=== PATIENT | male | born 1945 | race Caucasian/White ===

== ENCOUNTER 2023-07-06 14:43 | Inpatient (IN) | payer MEDICARE, SELFPAY ==
[2023-07-06] VITALS (16 sets, daily range): BP systolic 107–164; BP diastolic 67–100; PULSE 2–52; BMI 43.3; BMI 44.8
--- NOTE | 2023-07-06 10:36 | ED.GENMED ---
History of Present Illness
General
Chief Complaint: Visual Problem
Time Seen by Provider: 07/06/23 10:35
Travel History
Have you had any contact with someone who has COVID-19?: No
Do you have any symptoms of coronavirus? Fever > 100 degrees, chills, cough, shortness of breath, sore throat, loss of taste or smell, muscle aches, or headache?: No
History of Present Illness
History of Present Illness:
77-year-old male with history of hypertension, morbid obesity, and bilateral lower extremity neuropathy presents to the emergency department for evaluation of 'vision changes'. He states that at some point yesterday afternoon he noted that he could
not read his 's glucometer very well. He denies any obvious blurry or double vision. He does report a severe headache yesterday but this is improved as of today. No chest pain, shortness of breath, extremity weakness or paresthesias, or
speech problems. No history of cerebrovascular disease.
Review of Systems
Review of Systems
Allergies reviewed?: Yes
All Other Systems: ROS reviewed and negative except as documented in HPI and ROS
Phy Exam
Physical Exam
Physical Exam:
GEN: Well appearing, NAD, WDWN
HEENT: Oral mucosa moist, no scleral icterus, no nasal congestion
Cardiac: Regular rate and rhythm, no murmurs
Lung: No respiratory distress, no tachypnea, lungs CTAB
MSK: No gross deformity or injuries
Skin: Good color, no pallor or jaundice, no rashes
Neuro: AO x3
Cranial nerves: Unable to perform leftward gaze beyond the midline bilat, otherwise EOMs intact. Remainder of cranial nerves intact
Visual jeffrey: homonymous hemianopia of the patient's left to the midline
BUE strength 5/5 in all jeffrey, sensation intact and symmetric. BLE strength 5/5 in all jeffrey, sensation intact and symmetric
No dysarthria or aphasia
Psych: Calm, cooperative
Course
Orders/Labs/Results
Orders:
Orders
07/06/23 10:35
Electrocardiogram (*1) Urgent
Reason for Study: TIA/Stroke
CT Head W/o Iv Contrast Urgent
Comment:
Reason For Exam: vision changes
EKG- Treatment ONCE
07/06/23 10:42
Complete Blood Count/With Diff Urgent
Comprehensive Metabolic Panel Urgent
07/06/23 11:19
CT Head & Neck Angio W/wo IV Urgent
Comment:
Reason For Exam: stroke
07/06/23 11:50
Urinalysis Reflex To Culture Urgent
Date Specimen was Collected: 07/06/23
Time Specimen was Collected: 11:48
Urine Microscopic Reflex Cult Urgent
Urine Culture Urgent
CONSTANCE Source: U
Specimen Description:
Date Specimen was Collected: 07/06/23
Time Specimen was Collected: 11:48
07/06/23 12:10
Consult Neurology [NEUROLOGY CONSULT] Urgent
Consulting Provider: Terry Rangel
Was physician already notified: Yes
Heparin 4,000 units IV NOW STA
Pharmacy Request to Place See Dose Instructions PO NOW STA
Discontinue all Active Warfarin orders?: Yes
07/06/23 12:15
Heparin 72330 Units/250 ml 25,000 units in 250 ml IV PER PROTOCOL
Weight to be used for heparin protocol in kilograms (kg):: 133
Protocol:: Cardiac Tx/Acute Coronary
PTT Goal Range to be used:: PTT 73 to 111 seconds
Order type:: Initial
INITIAL Infusion Dose (UNITS/KG/hr) & then follow protocol:: 12 units/kg/hr
Infusion Dose in UNITS/hr & then follow protocol (UNITS/hr):: 1,000
INFUSION RATE in mL/hr & then follow protocol (mL/hr):: 10
PTT less than or equal to 64 seconds:: Increase rate by 200 units/hr (+ 2 mL/hr)
PTT 64.1 to 72.9 seconds:: Increase rate by 100 units/hr (+ 1 mL/hr)
PTT 73 to 111 seconds:: Target Range. No change in rate.
PTT 111.1 to 130.9 seconds:: Decrease rate by 100 units/hr (- 1 mL/hr)
PTT 131 to 199.9 seconds:: HOLD for 1 hr. Then decrease rate by 200 units/hr (- 2 mL/hr)
PTT greater than or equal to 200 seconds:: HOLD for 2 hrs & Notify Provider. Then decrease by 200 units/hr (-
2 mL/hr)
Lab follow-up:: Each change, PTT q6h until 2 consecutive are therapeutic. Then PTT
daily.
07/06/23 12:22
PTT Urgent
Comment: Obtain baseline before beginning heparin infusion if not already collected
07/06/23 13:[address] See Dose Instructions IV DIRECTED
07/06/23 14:31
Admit/Transfer Patient As Directed
Co-Sign Provider:
Level of Care: Inpatient admission
Assign to:: IMU- Intermediate Care
Physician / Group: Hospitalist
Diagnosis: Stroke/afib
Reason for Hospitalization: .
Expected length of stay greater than two midnights?: Yes
ELOS- Estimated Length of Stay in days: 3
I certify the patient meets the requirements for IP care: Yes
07/06/23 19:30
PTT Urgent
Nursing to Place Non Medication Order As Directed
Physician Order: PTT 6 hours after initial start of Heparin infusion
Above order entered?: Yes
Abnormal Lab Results
07/06/23 07/06/23
10:42 11:50
MCHC 32.8 L g/dL
(33.0-37.0)
Absolute Lymphs (auto) 1.1 L 10^3/uL
(1.2-3.4)
Absolute Monos (auto) 0.8 H 10^3/uL
(0.1-0.6)
Lymphocytes % 14.1 L %
(20.5-51.1)
Monocytes % 10.2 H %
(1.7-9.3)
Creatinine 0.6 L mg/dL
(0.7-1.3)
Glucose 109 H mg/dl
(70-99)
Alkaline Phosphatase 137 H U/L
(38-126)
Leukocyte Esterase Rfl 1+ A
(Negative)
Urine WBC (Reflex) 11-15 A /HPF
(0-5)
Urine Albumin (Reflex) 1+ A
(Neg - Trace)
07/06/23 10:42
07/06/23 10:42
Vital Signs
Initial and Last Documented VS:
Initial Vital Signs
BP Pulse Ox
120/87 97
07/06/23 10:36 07/06/23 10:36
Last Documented Vital Signs
Temp Pulse Resp BP Pulse Ox
97.8 F 55 18 129/73 94
07/06/23 10:40 07/06/23 12:45 07/06/23 10:39 07/06/23 12:00 07/06/23 12:45
MDM/Problems Addressed
MDM/Problems Addressed:
Patient presenting for left-sided homonymous hemianopia for duration of nearly 24 hours. Workup reveals an acute right-sided stroke involving the temporal and parietal lobes, subsequent CT angiogram reveals complete occlusion of the left internal
carotid artery as well as an acute occlusion of the left P2 segment of the LOOPER FIXER. Given the duration of the patient's symptoms he is not a candidate for thrombectomy or thrombolysis therapy. Due to the additional finding of new onset rate controlled
atrial fibrillation the patient was initiated on heparin therapy however after discussion with hospitalist and neurology, heparin was discontinued out of risk of worsening chances for hemorrhagic conversion of the stroke. Will be admitted to the
hospitalist service for further management
*Critical Care Note
Total Time (30-74mins, 75-104mins- exclusive of procedures): Not Applicable
Update Note
Update Note:
1358: After discussion with neurology and hospitalist, heparin was discontinued. Given the size of the infarct, it is recommended to hold AC for 48 hours post CVA (currently at approx 24 hrs).
ED Attending Note
-
Portions of this chart may have been created with voice recognition software.� Occasional wrong word or��sound alike� substitutions may have occurred due to the inherent limitations of voice recognition software.
Discharge Plan
Departure
Patient Disposition: Admit
Date of Disposition: 07/06/23
Time of Disposition: 13:54
Admit to: Telemetry
Presentation/result/management discussed w/ accepting MD/DO: Hospitalist
Discharge Problem:
Stroke, Atrial fibrillation, new onset
Interventions
Interventions:
*Risk Screen - Suicide Last Done: 07/06/23 12:59
*Neglect/Abuse Screening Last Done: 07/06/23 12:59
ED- Neurological Assessment Last Done: 07/06/23 12:50
ED Swallowing Screen Last Done: 07/06/23 13:57
[2023-07-06 10:47] LABS: % Basophils 0.7 % (0-2); % Eosinophils 2.9 % (0-6); % Immature Granulocytes 0.5 % (0-0.5); % Lymphocytes 14.1 % (20.5-51.1); % Monocytes 10.2 % (1.7-9.3); % Neutrophils 71.6 % (42.2-75.2); Absolute Basophils 0.1 10^3/uL (0-0.2); Absolute Eosinophils 0.2 10^3/uL (0-0.7); Absolute Lymphocytes 1.1 10^3/uL (1.2-3.4); Absolute Monocytes 0.8 10^3/uL (0.1-0.6); Absolute Neutrophils 5.8 10^3/uL (1.4-6.5); Hematocrit 47.8 % (39.0-52.0); Hemoglobin 15.7 g/dL (13.0-18.0); Mean Corp Hgb Conc. 32.8 g/dL (33.0-37.0); Mean Corpuscular Hgb 29.9 pg (27.0-31.0); Mean Platelet Volume 10.4 fL (7.4-10.4); Nucleated Red Blood Cells % 0 % (-); Platelet Count 215 10^3/uL (130-400); Red Blood Cell Count 5.25 10^6/uL (4.70-6.10); Red Cell Dist. Width 13.2 % (11.5-14.5); White Blood Cell Count 8.1 10^3/uL (4.8-10.8)
[2023-07-06 11:24] LABS: ALT (SGPT) 40 U/L (0-50); AST (SGOT) 43 U/L (17-59); Albumin 3.7 g/dl (3.5-5.0); Alkaline Phosphatase 137 U/L (38-126); Blood Urea Nitrogen 12 mg/dl (9-20); Calcium 8.6 mg/dl (8.4-10.2); Carbon Dioxide 27 mmol/L (22-30); Chloride 105 mmol/L (98-107); Estimated Creatinine Clearance > 125 ml/min; Glucose 109 mg/dl (70-99); Potassium 3.6 mmol/L (3.5-5.1); Sodium 137 mmol/L (135-145); Total Bilirubin 0.9 mg/dl (0.2-1.3); Total Protein 7.1 g/dl (6.3-8.2); eGFR > 60.00
[2023-07-06 12:12] LABS: Urine Albumin 1+ (Neg - Trace); Urine Bilirubin Negative (Negative); Urine Character Clear (Clear); Urine Color Yellow; Urine Glucose Negative (Negative); Urine Ketone Negative (Negative); Urine Leukocyte 1+ (Negative); Urine Nitrite Negative (Negative); Urine Occult Blood Negative (Negative); Urine Urobilinogen Negative (Neg - 1+)
[2023-07-06 12:41] LABS: APTT 34.5 Sec (23.4-35.0)
--- NOTE | 2023-07-06 12:53 | CON.NEURO ---
Neuro Assessment/Plan
Assessment
IMPRESSIONS/RECOMMENDATIONS:
Abrupt change in mentation with left-homonymous hemianopsia
Most likely due to visualized right occipital parietal ischemic lesion (seen on CT of head)
Patient was not a candidate for either tenecteplase or intra-arterial thrombectomy due to timeframe out of window
Plan
Provide combination of aspirin and clopidogrel for 21-day timeframe then aspirin 325 mg alone based on the patient's intracranial stenosis
No clear indication at this time that the patient would benefit from the use of atorvastatin based on low LDL, less than 70
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
Provide medical educational materials
Goal of mild hypertension until after 1800 hrs., at which time patient may return to normotension as a goal
Check MRI of brain for complete awareness of the patient's diagnosis
No clear indication patient would benefit from an echocardiogram from a neurological perspective at this time
Patient may require wound care evaluation and treatment for bilateral brothers wounds
Will continue to follow patient. Thank you.
Consultation
Order
Date of Consultation: 07/06/23
Requesting Provider: ED Physician
Reason for Consult: Visual change
Subjective/Objective
Subjective Data
Date of Service: July 06, 2023
Right-Handed
Started 'being dysfunctional' starting yesterday, with visual loss. Patient had problems with use of phone also.
Started at 17:45 hours yesterday. Associated headache, although he also described himself as sleep deprived at the time of onset of symptoms. Then napped for unclear time frame. Awoke at 02:00 this morning, attempted to call family for assistance,
and was unsuccessful. Discovered by family at 08:45 to continue to have difficult manipulation of objects as well as visual changes leading to presentation at this hospital's emergency department. No other associated symptoms. No known modifying
factors. No recent medical changes.
Objective Data
Vital Signs
Temp Pulse Resp BP Pulse Ox
36.6 C 55 18 129/73 94
07/06/23 10:40 07/06/23 12:45 07/06/23 10:39 07/06/23 12:00 07/06/23 12:45
Lab Results
07/06/23 10:42
07/06/23 10:42
APTT 34.5 Sec (23.4-35.0) 07/06/23 12:22
Sodium 137 mmol/L (135-145) 07/06/23 10:42
Potassium 3.6 mmol/L (3.5-5.1) 07/06/23 10:42
BUN 12 mg/dl (9-20) 07/06/23 10:42
Glucose 109 mg/dl (70-99) H 07/06/23 10:42
Calcium 8.6 mg/dl (8.4-10.2) 07/06/23 10:42
Patient Allergies
No Known Allergies Allergy (Unverified 07/06/23 10:37)
CVA Assessment
Onset of Stroke Symptoms
Onset of symptoms known: Yes
Date of onset of symptoms: 07/05/23
Time of onset of symptoms: 17:45
Time pt last seen normal is known: Yes
Date last time pt seen normal: 07/05/23
Time last time pt seen normal: 17:45
NIH Stroke Score
Level of Consciousness: 0 - Alert
LOC Questions: 0-Answers both correctly
LOC Commands: 0-Performs both correctly
Best Horizontal Gaze: 0-Normal
Visual Buckner: 3=Bilateral hemianopia
Facial Palsy: 0=Normal, symmetrical
Motor - Right Arm: 0=No drift 10 seconds
Motor - Left Arm: 0=No drift 10 seconds
Motor - Right Le-No drift 5 seconds
Motor - Left Le-No drift 5 seconds
Limb Ataxia: 0-Absent
Sensation: 0-Normal
Best Language: 0-No aphasia
Dysarthria: 0-Normal
Extinction and Inattention: 0-No abnormality
Total Score:: 3
Tenecteplase Contraindications
Inclusion and Exclusion criteria reviewed: Yes
IAT Contraindications: NIHSS < 6
Review of Systems
-
History Source: Patient
All other systems: Reviewed and negative
EENT: Negative Decreased Vision or Swallowing Difficulty
Respiratory: Negative Trouble Breathing
Cardiac: Negative Chest Pain
Abdomen/GI: Negative Incontinence of Stool
Genitourinary: Frequency; Negative Incontinence
Musculoskeletal: Negative Back Pain or Neck Pain
Neuro: Negative Dizzy or Headache
Physical Exam
-
General: No Apparent Distress and Appears Stated Age
Eyes: OU Absent Papilledema, Round OU, [place] Conjunctivae and No Ptosis
HEENT: Anicteric and Moist Mucous Membranes
Neck: Full Range of Motion
Respiratory: No Dyspnea
Cardiac: No JVD
GI: Non-distended
Skin: Lesions (Bilateral shins with surgical covering)
Extremities: No Clubbing, No Cyanosis and No Edema
Psych: Negative Intact Judgement/Insight
Extended Neurological Exam
Mood & Affect: Mood Unremarkable and Affect Unremarkable
Attention Span & Concentration: Awake, Alert, Interactive and Mild Difficulty with 2 Step Request
Memory: Unremarkable
Tremor: Hand Tremor Absent and Head Tremor Absent
Involuntary Movement: None
Speech: Quality Unremarkable and Quantity Unremarkable
Cranial Nerve II: Left Eye: Pupillary Reactivity Unremarkable, Pupillary Size Unremarkable and Visual Buckner Reduced (On the left)
Cranial Nerve II: Right Eye: Pupillary Reactivity Unremarkable, Pupillary Size Unremarkable and Visual Buckner Reduced (On the left)
Cranial Nerves III, IV, : Extraocular Movement: Extraocular Movement Full in all Directions
Cranial Nerve VII: Facial Symmetry: Normal Facial Symmetry
Cranial Nerve VIII: Hearing: Unremarkable Hearing to Normal Conversational Volume
Cranial Nerve XI: Shoulder Shrug: Unremarkable
Cranial Nerve XII: Tongue Protusion: Midline
Muscle Strength, Overall: Full Throughout
Muscle Bulk & Tone: Bulk Unremarkable and Tone Unremarkable
Pronator Drift: No Drift in Upper Extremities
Deep Tendon Reflexes: Absent Throughout
Touch Sensation: Unremarkable
Coordination: [id number]-[id number]-[id number] Testing Unremarkable
Babinski Sign: Absent Bilaterally
Gait & Station: Unable to Assess
Data Reviewed
-
CT-A: Report Reviewed
CT Head: Report Reviewed
MRI Head: Ordered
Labs: Report Reviewed
Lipid Profile: Report Reviewed
Reviewed with: Physician, Patient and Family
Old Records: Summarized
Medications
-
Active Medications
Generic Name Dose Route Start Last Admin
Trade Name Freq PRN Reason Stop Dose Admin
Heparin Sodium 25,000 units in 250 mls @ 0 mls/hr 07/06/23 12:15
Heparin 62352 Units/250 Ml IV
PER PROTOCOL KARLA
Protocol
Per Protocol
Home Medications
�Medication �Instructions �Recorded
acetaminophen 500 mg tablet 1,500 mg PO BID PRN mild pain 07/06/23
amlodipine 10 mg tablet 10 mg PO DAILY 07/06/23
atenolol 50 mg tablet 50 mg PO DAILY 07/06/23
cholecalciferol (vitamin D3) 125 125 mcg PO DAILY 07/06/23
mcg (5,000 unit) tablet (Vitamin
D3)
meloxicam 15 mg tablet 15 mg PO DAILY 07/06/23
olmesartan 40 mg tablet 40 mg PO DAILY 07/06/23
therapeutic multivitamin 1 tab PO DAILY 07/06/23
Past History
Past History
ED Past Medical History: Cancer (Prostate), HTN, NIDDM, Other (Vitamin D deficiency, gait dysfunction, hypertriglyceridemia, torn right biceps, morbid obesity) and Other (wounds on bilateral legs)
ED Past Surgical History: Orthopedic (Left knee replacement 2013, rotator cuff tear repair 2017, carpal tunnel release 2011) and Other (Herniorrhaphy)
[2023-07-06 13:00] LABS: Urine Squamous Cell 0-2 /LPF (Few)
[2023-07-06 13:01] LABS: Urine Granular Cast 0-2 /LPF (0); Urine Red Blood Cell None Seen /HPF (0-2)
[2023-07-06] MEDS: HEPARIN 4000 UNITS IV (13:24)
[2023-07-06] MEDS: HEPARIN 25000 UNITS/250 ML IV (13:26)
--- NOTE | 2023-07-06 14:31 | HPS.HSE ---
Addendum entered and electronically signed by Oswald Mishra MD 07/06/23 17:27:
Addendum
Correction
Chads 2 Vasc score 5 and not 3
End
Original Note:
Family Physician
-
Family Physician: Nelda Carreon DO
Chief Complaint
-
Disorientation and visual changes for 2 days duration
History of Present Illness
77 years old male came from home. Patient felt headache and disorientation since yesterday. He describes her disorientation is as inability to use his phone appropriately no speech problem or swallowing problem. He also noticed the left side of
his vision was impaired. No weakness or numbness in any of the extremity. His headache resolved today but vision a problem remained and called his assisted living. They brought him to the emergency room. Had a scan showed large ischemic stroke
in the right occipital and temporal lobes. CTA of the head and neck showed acute complete occlusion of the right posterior cerebral artery.
Patient lives in assisted living with his . He is the caregiver of his . He walks with a cane. He drives his car. No previous strokes.
Patient was found to have atrial fibrillation. No history of chest pain palpitation. Chronic shortness of breath but increased recently. He has a chronic wounds on his bilateral lower extremities. 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 No previous diagnosis of atrial fibrillation. Patient could not recall the name of his hoisting machine operator but he reported some disorientation in last 2 days.
Medical History
Past Medical History
Past Medical History: Reports Other (Gait dysfunction, hypertension, history of prostate cancer, morbid obesity, hyperlipidemia, chronic venous wounds on bilateral lower extremity)
Past Surgical History: Reports Other (No recent major surgery)
Social History
Tobacco: Non-smoker
Alcohol: Occasional
Drug: None
Personal:
Living: With Family
Employment: Retired
Family History
Family History: Not pertinent
Allergies / Home Medications
Allergies reflects when Allergies were last updated in [employer].
Home Medications with original date entered in [employer]
Allergy/Medication List:
Allergies
Allergy/AdvReac Type Severity Reaction Status Date / Time
No Known Allergies Allergy Unverified 07/06/23 10:37
Home Medications
acetaminophen 500 mg tablet 1,500 mg PO BID PRN mild pain 07/06/23
amlodipine 10 mg tablet 10 mg PO DAILY 07/06/23
atenolol 50 mg tablet 50 mg PO DAILY 07/06/23
cholecalciferol (vitamin D3) 125 mcg (5,000 unit) tablet (Vitamin D3) 125 mcg PO DAILY 07/06/23
meloxicam 15 mg tablet 15 mg PO DAILY 07/06/23
olmesartan 40 mg tablet 40 mg PO DAILY 07/06/23
therapeutic multivitamin 1 tab PO DAILY 07/06/23
Review of Systems
-
History Source: Patient
A 12 point ROS was completed and negative except as noted: Yes
Constitutional: Denies Fever or Chills
EENT: Denies Sore Throat
Respiratory: Reports Trouble Breathing; Denies Cough
Cardiac: Denies Chest Pain
Abdomen/GI: Denies Abdominal Pain
: Denies Dysuria or Bleeding
Musculoskeletal: Denies Joint Pain
Skin: Denies Itching
Neurological: Reports Weakness and Other (confusion, loss of vision on left side ); Denies Numbness
Hematologic/Lymphatic: Denies Bruising
Psych: Denies Panic Disorder
Physical Exam
Vital Signs
Vital Signs
Temp Pulse Resp BP Pulse Ox
97.8 F 55 18 129/73 94
07/06/23 10:40 07/06/23 12:45 07/06/23 10:39 07/06/23 12:00 07/06/23 12:45
Physical Exam
General: No Apparent Distress, Comfortable and Obese
HEENT: Moist mucous membranes and Atraumatic
Respiratory: Clear
Cardiac: S1/S2, Irregular Rhythm and Bradycardia
GI: Non Tender
Rectal: No Maroon Stools
Genito-urinary: No costovertebral tender
Musculoskeletal: No Cyanosis and Other (Bilateral lower legs with edema)
Skin: Ulcers (Bilateral lower legs); No Jaundice
Neuro: AO x 3 and Other (Patient followed commands. Left homonymous hemianopia noted. Gait not assessed); No Slurred Speech, Facial Droop or Tremors
Psych: Calm and Intact Judgment/Insight
Laboratory Results
-
07/06/23 10:42
07/06/23 10:42
Laboratory Results
APTT 34.5 Sec (23.4-35.0) 07/06/23 12:22
Total Bilirubin 0.9 mg/dl (0.2-1.3) 07/06/23 10:42
AST 43 U/L (17-59) 07/06/23 10:42
ALT 40 U/L (0-50) 07/06/23 10:42
Alkaline Phosphatase 137 U/L (38-126) H 07/06/23 10:42
Impression/Plan
-
IMPRESSION:
77 years old male presented with disorientation, visual loss last 2 days
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
Admit the patient to the hospital
Patient presented with disorientation and left hemianopsia hemianopia
Start the patient on NIH stroke/stroke protocol/cardiac monitoring
Duration of symptoms more than 24 hours. Continue control blood pressure to normotensive.
Check lipid panel
Discussed with neurologist results of CT/CTA. Order MRI. Carotid US. Continue with aspirin for now. Eventual systemic anticoagulation after acute stage of stroke
PT/OT/speech
Order echocardiogram
Appreciate neurology input
# Primary hypertension
Will continue with home medications and monitor blood pressure.
Duration of symptoms more than 24 hours. Goal is normotensive
No chest pain, no headache
# New diagnosis of atrial fibrillation. No palpitations or chest pain.
Unknown duration of atrial fibrillation
Monitor on cardiac telemetry
Continue with aspirin for now.
[id number]= 3
Order echocardiogram
Patient saw hoisting machine operator in [place] years ago, he could not recall the name
Appreciate cardiology input
# Morbid obesity, BMI 43
# Chronic venous wound bilateral lower extremity
Patient does wound care at home. Both legs are swollen red, ulceration look red erythematous with soaked gauze on some
Per patient, chronic issue for him(and family are not with it and able to manage it at home)
Consult wound care nurse
# Chronic ambulatory dysfunction. Uses cane
# DVT prophylaxis
Total time spent to see the patient, examine the patient on the floor, review data and lab results, discuss treatment plan with patient, neurologist, hoisting machine operator, ER doctor, nursing staff around 75 minutes.
--- NOTE | 2023-07-06 15:10 | CON.CAR ---
Consultation
Consultation Request
Date/Time Consultation Requested: 07/06/23
Date/Time Consultation Performed: 07/06/23
Requesting Provider: Dr Mishra
Performing Provider: Dr Benitez
Reason for Consultation: new afib with cva
Medical History
-
Chief Complaint: Disorientation and visual impairment
History of Present Illness:
77-year-old gentleman with a past medical history of hyperlipidemia, morbid obesity, hypertension and gait dysfunction presents for evaluation of new neurologic symptoms including disorientation, headache, and left sided visual impairment.
Evaluation showed large ischemic stroke in the right occipital and temporal lobes. CTA showed complete occlusion of the right STAFFING COORDINATOR. EKG shows atrial fibrillation. We are asked to comment on his atrial fibrillation. He has no sense of it and has
never been diagnosed in the past. 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 He has TATIANA and doesn't wear CPAP.
Past Medical History
Past Medical History: Cancer (prstate), HTN and Other (gait dysfunction, chronic lower extremity edema with venous wounds, morbid obesity))
Social History
Tobacco: Non-Smoker
Alcohol: Occasional
Personal:
Living: Assisted Living
Family History
Family History: Reviewed & Not Pertinent
Allergies / Home Medications
Allergy/AdvReac Type Severity Reaction Status Date / Time
No Known Allergies Allergy Unverified 07/06/23 10:37
�Medication �Instructions �Recorded �Confirmed �Type
acetaminophen 500 mg tablet 1,500 mg PO BID PRN mild pain 07/06/23 07/06/23 History
amlodipine 10 mg tablet 10 mg PO DAILY 07/06/23 07/06/23 History
atenolol 50 mg tablet 50 mg PO DAILY 07/06/23 07/06/23 History
cholecalciferol (vitamin D3) 125 125 mcg PO DAILY 07/06/23 07/06/23 History
mcg (5,000 unit) tablet (Vitamin
D3)
meloxicam 15 mg tablet 15 mg PO DAILY 07/06/23 07/06/23 History
olmesartan 40 mg tablet 40 mg PO DAILY 07/06/23 07/06/23 History
therapeutic multivitamin 1 tab PO DAILY 07/06/23 07/06/23 History
Review of Systems
-
All other systems: Negative unless noted
Physical Exam
Vital Signs
Temp Pulse Resp BP Pulse Ox
97.8 F 55 18 129/73 94
07/06/23 10:40 07/06/23 12:45 07/06/23 10:39 07/06/23 12:00 07/06/23 12:45
Lab Results
07/06/23 10:42
07/06/23 10:42
Impression / Plan
-
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
Presentation more than 24 hours from symptom onset.
Obtain lipid panel and begin high-dose statin.
Atrial fibrillation now seen, would start anticoagulation when okay with neurology.
#Atrial fibrillation: Unknown duration, unknown symptoms. Rate controlled on baseline medical therapy including atenolol 50 mg daily.
-Continue beta-verna
-Will ask case management to flor Eliquis 5 mg twice a day.
Initiate anticoagulation when okay with neurology as recent embolic stroke.
Chads 2 Vasc score will be 5 for age(2), CVA(2), and hypertension(1).
would not initally pursue rhythm control.
will check echo
#TATIANA not compliant with CPAP: recommend eval and treatment as an outpatient.
#RBBB; will check echo
# HTN chronic
# HLD: chornic,
#morbid obesity: BMI 43 with CVA may benefit GLP1 agonist, can consider with PCP
Data Reviewed
-
EKG: Tracing Personally Visualized and interpreted (Atrial fibrillation with slow ventricular response, right bundle branch block.)
--- NOTE | 2023-07-06 17:00 | PTCARENOTE ---
Received patient from ED. Patient alert and oriented. Homonymous hemianopia affecting left to midline. NIH score 4. Vital signs stable. Oriented patient to room. Call vivas in reach.
[2023-07-06 17:11] LABS: HDL Cholesterol 54 mg/dl; LDL Cholesterol, Calculated 56 mg/dl; Total Cholesterol 127 mg/dl (50-199); Triglyceride 88 mg/dl (10-149); Very Low Density Lipoprotein 17 mg/dl (0-30)
[2023-07-06] MEDS: LIPITOR 40 MG PO (17:44)
[2023-07-06] MEDS: TYLENOL 1000 MG PO (18:30)
[2023-07-06] MEDS: APRESOLINE 5 MG IV (21:24)
[2023-07-06] MEDS: FLUSH (NSS) 2 FLUSH IV (21:24)
[2023-07-07] VITALS (18 sets, daily range): BP systolic 117–165; BP diastolic 69–89; PULSE 2–67; O2SAT 93
[2023-07-07] MEDS: DESENEX/MITRAZOL/ZEASORB 1 APPLIC TOPICAL ×3 (00:30→20:43)
--- NOTE | 2023-07-07 05:15 | PTCARENOTE ---
Pt received at beginning of shift resting in bed. AAOx3. Denies any pain or discomfort after received Tylenol for SUÁREZ on hi. BP 164/94 with HR 37-57 on CM in Afib/BBB. Geovanikayla TIMI on floor and order entered for Hydralazine 5mg IV x 1. Pt
received Hydralazine as ordered with good result. Also pt has sleep apnea with HR's into the mid 30's while asleep. Does admit to history of sleep apnea. Order entered for CPAP that was eventually switched over to BIPAP. Still with HR alarming into
the 30's but less frequently. NIH and Neuro checks as documented. Still with visual difficulty reading clock and left visual field B/L. Wound care completed to LE's. Sacrum intact. Desenex ordered for fungal rash to scrotal/groin area. Encouraging
Q2hr turns. Pt can refuse turns. Afib and Stroke packets given to pt with education. Unable to truly determine QTC with bradycardic Afib/BBB. EKG obtained showing continuing Afib/RBBB with QTC slightly better than in ED. Using urinal at bedside.
Call vivas remains within reach. Will continue to monitor.
[2023-07-07 05:35] LABS: Hemoglobin 15.5 g/dL (13.0-18.0); Mean Corpuscular Hgb 29.6 pg (27.0-31.0); Mean Corpuscular Volume 89.9 fL (80.0-94.0); Mean Platelet Volume 10.7 fL (7.4-10.4); Platelet Count 188 10^3/uL (130-400); Red Blood Cell Count 5.23 10^6/uL (4.70-6.10); Red Cell Dist. Width 13.3 % (11.5-14.5); White Blood Cell Count 7.7 10^3/uL (4.8-10.8)
[2023-07-07 05:56] LABS: Blood Urea Nitrogen 14 mg/dl (9-20); Calcium 8.9 mg/dl (8.4-10.2); Carbon Dioxide 26 mmol/L (22-30); Chloride 103 mmol/L (98-107); Estimated Creatinine Clearance > 125 ml/min; Glucose 96 mg/dl (70-99); HDL Cholesterol 47 mg/dl; LDL Cholesterol, Calculated 46 mg/dl; Potassium 3.6 mmol/L (3.5-5.1); Sodium 138 mmol/L (135-145); Total Cholesterol 113 mg/dl (50-199); Triglyceride 101 mg/dl (10-149); Very Low Density Lipoprotein 20 mg/dl (0-30); eGFR > 60.00
--- NOTE | 2023-07-07 06:31 | W.PN.HOSP.TC ---
Today's Communication/Plan
-
.
Assessment / Plan
Assessment / Plan
Physical Exam
General: No Apparent Distress, Comfortable and Obese
HEENT: Moist mucous membranes and Atraumatic
Respiratory: limited with some basal rales.
Cardiac: S1/S2, Irregular Rhythm and Bradycardia
GI: Non Tender
Rectal: No Maroon Stools
Genito-urinary: No costovertebral tender
Musculoskeletal: No Cyanosis and Other (Bilateral lower legs with edema)
Skin: Ulcers (Bilateral lower legs); No Jaundice
Neuro: AO x 3 and Other (Patient followed commands. Left homonymous hemianopia noted. Gait not assessed; No Slurred Speech, Facial Droop or Tremors
Psych: Calm and Intact Judgment/Insight
77 years old male presented with disorientation, visual loss last 2 days
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
He feels less disoriented today, same visual deficit
Patient presented with disorientation and left hemianopsia hemianopia
c/w NIH stroke/stroke protocol/cardiac monitoring
Started on Statin. LDL 46
Discussed with neurologist results of CT/CTA. Ordered MRI. Carotid US. Continue with aspirin for now. Eventual systemic anticoagulation after acute stage of stroke
PT/OT/speech
HGB A1c 5.6 in May 2022.
Order echocardiogram
Appreciate neurology input
# Bradycardia, more pronounced at night around 30-40
Holding BB
# Hx of sleep apnea. pt dominique snot wear C pap
Check chest x ray as some limitation in air entry on exam and basal rales.
# Primary hypertension
Will continue with amlodipine and ARB
Add PRN Hydralazine
No chest pain, no headache
# New diagnosis of atrial fibrillation. No palpitations or chest pain.
Unknown duration of atrial fibrillation
Monitor on cardiac telemetry
Continue with aspirin for now.
[id number]
Order echocardiogram
Patient saw jig operator in [place] years ago, he could not recall the name
Appreciate cardiology input
# Morbid obesity, BMI 43
# Chronic venous wound bilateral lower extremity
Patient does wound care at home. Both legs are swollen red, ulceration looked red erythematous with soaked gauze on some
Per patient, chronic issue for him
Consult wound care nurse
# Chronic ambulatory dysfunction. Uses cane
# DVT prophylaxis
Total time spent to see the patient, examine the patient on the floor, review data and lab results, discuss treatment plan with patient, jig operator,nursing staff around 55 minutes.
Anticipated Discharge: 24 - 48 hours
Subjective/Interval History
-
Date of Service: July 07, 2023
Patient feels better, less disorientation
No chest pain
No abd pain
Nursing : over night bradycardia , refused c pap, trial of Bipap , known TATIANA
Wounds were cleaned.
Objective Data
-
Labs:
Laboratory Results
07/07/23
04:45
WBC 7.7
Hgb 15.5
Hct 47.0
Plt Count 188
Sodium 138
Potassium 3.6
Chloride 103
Carbon Dioxide 26
BUN 14
Creatinine 0.6 L
Glucose 96
Calcium 8.9
Vital Signs:
Vital Signs
Temp Pulse Resp BP Pulse Ox
98.2 F 48 18 146/79 99
07/07/23 03:36 07/07/23 05:00 07/07/23 05:00 07/07/23 04:01 07/07/23 05:00
I&O
07/05/23 07/06/23 07/07/23
06:59 06:59 06:59
Intake Total 680 / 680
Output Total 600 / 600
Balance 80 / 80
--- NOTE | 2023-07-07 08:41 | W.PN.NEURO.1 ---
Today's Communication / Plan
-
Replace combination of aspirin and clopidogrel with anticoagulation starting tonight which will represent 48 hours after onset of symptoms
No clear indication at this time that the patient would benefit from the use of atorvastatin based on low LDL, less than 70
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
Neuro Assessment/Plan
Assessment
IMPRESSIONS/RECOMMENDATIONS:
Abrupt change in mentation with left-homonymous hemianopsia
Most likely due to large visualized right occipital parietal ischemic lesion (seen on CT of head, and MRI of brain)
Patient subsequently found to have fibrillation.
Plan
Replace combination of aspirin and clopidogrel with anticoagulation starting tonight which will represent 48 hours after onset of symptoms
No clear indication at this time that the patient would benefit from the use of atorvastatin based on low LDL, less than 70
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
Provide medical educational materials
Rehabilitation evaluations
normotension as a goal
Patient may require wound care evaluation and treatment for bilateral brothers wounds
Will continue to follow as outpatient. Please contact us with additional questions or issues.
Subjective/Objective
Subjective Data
Date of Service: July 07, 2023
No new changes.
Objective Data
Vital Signs
Temp Pulse Resp BP Pulse Ox
36.5 C 69 17 133/80 92
07/07/23 08:34 07/07/23 06:30 07/07/23 06:30 07/07/23 06:30 07/07/23 06:30
Lab Results
07/07/23 04:45
07/07/23 04:45
APTT Cancelled 07/06/23 19:30
Sodium 138 mmol/L (135-145) 07/07/23 04:45
Potassium 3.6 mmol/L (3.5-5.1) 07/07/23 04:45
BUN 14 mg/dl (9-20) 07/07/23 04:45
Glucose 96 mg/dl (70-99) 07/07/23 04:45
Calcium 8.9 mg/dl (8.4-10.2) 07/07/23 04:45
LDL Cholesterol, Calc 46 mg/dl 07/07/23 04:45
Patient Allergies
No Known Allergies Allergy (Unverified 07/06/23 10:37)
Review of Systems
-
History Source: Patient
All other systems: Reviewed and negative
EENT: Decreased Vision; Negative Swallowing Difficulty
Respiratory: Negative Trouble Breathing
Cardiac: Negative Chest Pain
Abdomen/GI: Negative Incontinence of Stool
Genitourinary: Negative Incontinence
Musculoskeletal: Negative Back Pain or Neck Pain
Neuro: Dizzy; Negative Headache
Physical Exam
-
General: No Apparent Distress and Appears Stated Age
Eyes: Round OU, Argenta Conjunctivae and No Ptosis
HEENT: Anicteric and Moist Mucous Membranes
Neck: Full Range of Motion
Respiratory: No Dyspnea
Cardiac: No JVD
GI: Non-distended
Skin: Lesions (Bilateral shins with surgical covering)
Extremities: No Clubbing, No Cyanosis and No Edema
Psych: Negative Intact Judgement/Insight
Extended Neurological Exam
Mood & Affect: Mood Unremarkable and Affect Unremarkable
Attention Span & Concentration: Awake, Alert, Interactive and Mild Difficulty with 2 Step Request
Memory: Unremarkable
Tremor: Hand Tremor Absent and Head Tremor Absent
Involuntary Movement: None
Speech: Quality Unremarkable and Quantity Unremarkable
Cranial Nerve II: Left Eye: Pupillary Size Unremarkable and Visual Buckner Reduced (On the left)
Cranial Nerve II: Right Eye: Pupillary Size Unremarkable and Visual Buckner Reduced (On the left)
Cranial Nerves III, IV, : Extraocular Movement: Grossly Intact
Cranial Nerve VII: Facial Symmetry: Normal Facial Symmetry
Cranial Nerve VIII: Hearing: Unremarkable Hearing to Normal Conversational Volume
Muscle Strength, Overall: Reduced Bilaterally (In bilateral lower extremities, mildly)
Muscle Bulk & Tone: Bulk Unremarkable and Tone Unremarkable
Pronator Drift: No Drift in Upper Extremities
Touch Sensation: Unremarkable
Coordination: Reaches for Objects without Difficulty
Babinski Sign: Absent Bilaterally
Gait & Station: Unable to Assess
Data Reviewed
-
CT-A: Report Reviewed
MRI Head: Report Reviewed and Image Reviewed
Echocardiogram: Ordered
Labs: Report Reviewed
Lipid Profile: Report Reviewed
Reviewed with: Physician, Nurse and Patient
Old Records: Summarized
[2023-07-07] MEDS: VITAMIN D3 (cholecalciferol) 125 MCG PO (10:19)
[2023-07-07] MEDS: BENICAR 40 MG PO (10:20)
[2023-07-07] MEDS: THERAGRAN 1 TABLET PO (10:20)
[2023-07-07] MEDS: LOW STRENGTH ASPIRIN 81 MG PO (10:20)
[2023-07-07] MEDS: NORVASC 10 MG PO (10:20)
--- NOTE | 2023-07-07 11:04 | PTOTSP ---
ST Acute Care Evaluation
Pt presents with oral pharyngeal parameters that are within functional limits for safe PO intake of all consistencies. No skilled dysphagia services are warranted at this time.
Pt presents with a mild cognitive linguistic impairment characterized by impaired visual spatial skills and impaired recall. Pt would benefit from acute rehab GASTROENTEROLOGY TECHNICIAN services upon discharge.
Recommendations:
- Continue with regular solids, thin liquids, meds as tolerated, and general aspiration precautions.
- GASTROENTEROLOGY TECHNICIAN to continue to follow for cognitive linguistic tx.
- Pt would benefit from acute rehab GASTROENTEROLOGY TECHNICIAN services upon d/c.
[2023-07-07 11:08] LABS: NT-proBNP 592 pg/ml
--- NOTE | 2023-07-07 11:46 | PTCARENOTE ---
Pt sent to MRI on stretcher.
[2023-07-07] MEDS: TYLENOL 1000 MG PO (13:36)
--- NOTE | 2023-07-07 14:24 | PTCARENOTE ---
Portable chest xray obtained. Pt remains AOx3, anxious affect, daughters visiting at bedside. Safe environment maintained. Plan discussed with Drs. Mishra and Juan Carlos.
[2023-07-07] MEDS: LASIX 40 MG IV (15:19)
--- NOTE | 2023-07-07 15:37 | W.PN.CD ---
Today's Communication / Plan
-
hold bb
assess bp in am
compression when able
await pricing of Eliquis but to start tonight
Impression / Plan
-
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
Presentation more than 24 hours from symptom onset.
continue statin
Atrial fibrillation now seen, will start anticoagulation tonight after d/w neurology
#Atrial fibrillation: Unknown duration, unknown symptoms.
-he has had a slow ventricular response
-HR in the 30s with sleep will hold atenolol and monitor rates
-need sleep study and cpap as op as likley causing nocturnal bradycardia
-Will ask case management to flor Eliquis 5 mg twice a day.
start Eliquis tonight
Chads 2 Vasc score will be 5 for age(2), CVA(2), and hypertension(1).
would not initally pursue rhythm control.
will check echo
#TATIANA not compliant with CPAP: recommend eval and treatment as an outpatient.
#Chronic venous stasis with ulcers: just received IV lasix, wound care c/s, compression when able.
#RBBB; will check echo
# HTN chronic, elevated with bb hold will increase olmesartan if needed, will assess in pm as just received IV lasix and want to avoid hypotension.
# HLD: chornic,
#morbid obesity: BMI 43 with CVA may benefit GLP1 agonist, can consider with PCP
Physical Exam
Vital Signs/Labs
Vital Signs
Temp Pulse Resp BP Pulse Ox
98.4 F 82 20 163/95 91
07/07/23 11:50 07/07/23 15:19 07/07/23 12:59 07/07/23 15:19 07/07/23 12:59
07/06/23 07/07/23 07/08/23
06:59 06:59 06:59
Actual Weight 129.546 kg
07/07/23 04:45
07/07/23 04:45
APTT Cancelled 07/06/23 19:30
Triglycerides 101 mg/dl (10-149) 07/07/23 04:45
LDL Cholesterol, Calc 46 mg/dl 07/07/23 04:45
VLDL Cholesterol, Calc 20 mg/dl (0-30) 07/07/23 04:45
HDL Cholesterol 47 mg/dl 07/07/23 04:45
07/07/23
04:45
Hdq-T-Gbypsdwcrau Pept 592
Physical Exam
Constitutional: No acute distress and Other (obese)
Cardiovascular: Systolic murmur absent, Rhythm/rate is irregular and Pedal edema present (2+ bl with wounds )
Respiratory: Respiratory effort normal, Lungs clear to auscul., Wheeze Absent, Crackles Absent and Rhonchi Absent
Neuro/Psych: AO x 3
Data Reviewed
-
Date of Service: July 07, 2023
Medical Tests (PFT, Pathology etc): Discussed with Physician (reassess bp and possibly increase arb tomorrow with Dr Mishra) and Discussed with Nurse (she is about to iv lasix)
[2023-07-07] MEDS: LIPITOR 40 MG PO (18:07)
--- NOTE | 2023-07-07 20:00 | PTCARENOTE ---
Resumed care of patient laying in bed AAOx3. NIH performed, scored 3 at this time for left sided partial hemianopia. B/L LE weakness. HR in the 70's, AFib with BBB, Prolonged QT, frequent PVC's on the monitor. HR irreg. POX 93% on RA. Lungs dec t/o.
Tachypnea, DENIS, Orthopnea. Sleep apnea, BIPAP HS. round obese abd. + bowel. Pt complaining of urinary frequency, pad wet and MASD noted to bon area. #25CC applied per pt request to allow for sleep. Venous stasis wounds to B/L LE, dressings intact
at this time. +2pitting edema noted. Brown/red discoloration. Heels elevated on pillows. Right AC int capped. Pt repositioned per comfort. Oral care provided. Will continue to monitor.
--- NOTE | 2023-07-07 21:50 | PTCARENOTE ---
Pt falling a sleep, pox 80% on RA. RT notified. Pt placed on Bipap 12/10 with 4 LO2. Pox now 96%. Will continue to monitor.
[2023-07-08] VITALS (17 sets, daily range): BP systolic 114–172; BP diastolic 64–125; PULSE 2–79; O2SAT 92–93; BMI 44.3
--- NOTE | 2023-07-08 00:20 | PTCARENOTE ---
Pt woke up all anxious, wanted Bipap off, pt stating he was done sleeping for the night. Emotional support provided. Pt complaining of headache. PRN Tylenol administered as ordered. Will continue to monitor.
[2023-07-08] MEDS: TYLENOL 1000 MG PO ×3 (00:23→18:14)
--- NOTE | 2023-07-08 01:09 | PTCARENOTE ---
Pt falling a sleep, POX 86% on RA. HR in the low 50's. Bipap re-applied. No other changes in assessment noted at this time. Will continue to monitor.
--- NOTE | 2023-07-08 01:50 | PTCARENOTE ---
Pt once again pulled Bipap mask off. PT states he is awake and doesnt need mask. Will continue to monitor.
--- NOTE | 2023-07-08 03:00 | PTCARENOTE ---
pox dropping to low 80's on RA> Pt once again sleeping. BIPAP mask applied. Will monitor. c
[2023-07-08 04:53] LABS: Hematocrit 46.2 % (39.0-52.0); Hemoglobin 15.2 g/dL (13.0-18.0); Mean Corp Hgb Conc. 32.9 g/dL (33.0-37.0); Mean Corpuscular Hgb 29.9 pg (27.0-31.0); Mean Corpuscular Volume 90.9 fL (80.0-94.0); Mean Platelet Volume 10.5 fL (7.4-10.4); Platelet Count 190 10^3/uL (130-400); Red Blood Cell Count 5.08 10^6/uL (4.70-6.10); Red Cell Dist. Width 13.2 % (11.5-14.5); White Blood Cell Count 8.6 10^3/uL (4.8-10.8)
[2023-07-08 05:24] LABS: Blood Urea Nitrogen 17 mg/dl (9-20); Calcium 8.6 mg/dl (8.4-10.2); Carbon Dioxide 25 mmol/L (22-30); Chloride 103 mmol/L (98-107); Estimated Creatinine Clearance 114 ml/min; Glucose 97 mg/dl (70-99); Potassium 3.3 mmol/L (3.5-5.1); Sodium 134 mmol/L (135-145); eGFR > 60.00
[2023-07-08] MEDS: KCL 40 MEQ PO (06:02)
--- NOTE | 2023-07-08 08:14 | W.PN.CD ---
Today's Communication / Plan
-
ECHO today
Eliquis started this AM
Added HCTZ 1.25qd for htn
Impression / Plan
-
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
Presentation more than 24 hours from symptom onset. Improving. Mental status completely normal
continue statin
AF NEW dx. OAT started today (Eliquis 5mg bid)
#Atrial fibrillation: Unknown duration, unknown symptoms.
-he has had a slow ventricular response
-HR in the 30s with sleep likely due to TATIANA. Atenolol on hold. May need no BB or lower dose (25mg)
-need sleep study and cpap as op as likley causing nocturnal bradycardia
-Please flor eliquis
Chads 2 Vasc score will be 5 for age(2), CVA(2), and hypertension(1).
would not initally pursue rhythm control. I told him we will wait for 4 wks of uninterrupted OAT then can have elective DCCV to see how long it lasts
will check echo today
#TATIANA not compliant with CPAP: recommend eval and treatment as an outpatient.He is asking about Inspire device. I told him this would be a referral to see ENT electively
#Chronic venous stasis with ulcers: just received IV lasix, wound care c/s, compression when able.
#RBBB; will check echo
# HTN chronic, elevated- olmesartan is at 40mg daily which is typically max dose. Amlodipine at 10 which is also max. Would add HCTZ 12.5 qd (ADDED)
# HLD: chornic,
#morbid obesity: BMI 43 with CVA may benefit GLP1 agonist, can consider with PCP
Physical Exam
Vital Signs/Labs
Vital Signs
Temp Pulse Resp BP Pulse Ox
98.4 F 62 18 129/64 85
07/08/23 03:34 07/08/23 04:00 07/08/23 04:00 07/08/23 04:00 07/08/23 04:00
07/07/23 07/08/23 07/09/23
06:59 06:59 06:59
Actual Weight 285 lb 9.6 oz 282 lb 12.8 oz
07/08/23 04:36
07/08/23 04:36
APTT Cancelled 07/06/23 19:30
Triglycerides 101 mg/dl (10-149) 07/07/23 04:45
LDL Cholesterol, Calc 46 mg/dl 07/07/23 04:45
VLDL Cholesterol, Calc 20 mg/dl (0-30) 07/07/23 04:45
HDL Cholesterol 47 mg/dl 07/07/23 04:45
07/07/23
04:45
Pqa-B-Fkrixgchwae Pept 592
Physical Exam
Constitutional: Comfortable
EENT: Anicteric
Cardiovascular: Rhythm/rate is irregular and Murmur/rub/gallop absent
Respiratory: Respiratory effort normal
GI: Non tender
Neuro/Psych: Motor deficits absent
Data Reviewed
-
Date of Service: July 08, 2023
[2023-07-08] MEDS: BENICAR 40 MG PO (08:37)
[2023-07-08] MEDS: ELIQUIS 5 MG PO ×2 (08:37→19:42)
[2023-07-08] MEDS: DESENEX/MITRAZOL/ZEASORB 1 APPLIC TOPICAL ×2 (08:38→19:42)
[2023-07-08] MEDS: THERAGRAN 1 TABLET PO (08:38)
[2023-07-08] MEDS: NORVASC 10 MG PO (08:38)
[2023-07-08] MEDS: VITAMIN D3 (cholecalciferol) 125 MCG PO (08:38)
--- NOTE | 2023-07-08 09:22 | W.PN.HOSP.TC ---
Today's Communication/Plan
-
ECHO
Wound care consult.
PT OT
Watch closely with start of Eliquis
Assessment / Plan
Assessment / Plan
CVS: S1-S2 normal
Chest: CTA B/L
Abdomen: Soft, NT / Bowel sounds present
Extremities: Dry skin with flacking. Ulcers bandaged. Will take a look with WC today
REFUGE WORKER: Visual field cut left side.
Good 5/5 strength B/L UE and LE
Mild pronator drift left
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
MRI of the brain-large area of nonhemorrhagic infarct consistent with CT scan involving medial aspect of the right temporal lobe and right occipital lobe and adjacent cytotoxic edema. Possible tiny acute/subacute nonhemorrhagic infarct in the right
thalamus
Head CT-acute complete occlusion of the P2 segment of the right posterior cerebral artery with an associated large acute and ischemic infarct in the right occipital and right temporal lobes containing severe cytotoxic edema. 70% diameter stenosis
of the P2 segment of the left BANKING CONSULTANT. 50% diameter stenosis of the distal right intracranial vertebral artery. Severe calcific atherosclerotic plaque in both the proximal intracranial vertebral arteries., Intracranial right internal carotid artery
causing 25 to 50% diameter stenosis. Patent OBINNA and BANKING CONSULTANT
Neck CTA-complete occlusion of the proximal ICA. Less than 25% stenosis of the proximal right ICA. Greater than 70% diameter stenosis at the origin of the right vertebral artery.
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
Patient presented with disorientation and left hemianopsia hemianopia
Eliquis started per recommendations from from neurology. Aspirin Plavix stopped
Started on Statin due to extensive atherosclerosis. LDL 46
PT/OT/speech
HGB A1c 5.6 in May 2022.
Await echocardiogram
# Hypokalemia-replace
# 1 cm nodule in the anterior segment of the right upper lobe-Needs a CT chest at some point
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
# Mild to moderate pulmonary edema. Small bilateral pleural effusions.
Check echo
#Aerococcus in the urine without symptoms. Hold off on antibiotics
# Bradycardia, more pronounced at night around 30-40
Holding BB
# Hx of sleep apnea. pt does not wear C pap
# Primary hypertension
Will continue with amlodipine and ARB
Add PRN Hydralazine
No chest pain, no headache
# New diagnosis of atrial fibrillation. No palpitations or chest pain.
Unknown duration of atrial fibrillation
Monitor on cardiac telemetry
Continue with Eliquis
[id number]
Obtain echocardiogram
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
Appreciate cardiology input
# Morbid obesity, BMI 43
# Chronic venous wound bilateral lower extremity
Patient does wound care at home. Both legs are swollen red, ulceration looked red erythematous with soaked gauze on some
Per patient, chronic issue for him
Consult wound care nurse
# Chronic ambulatory dysfunction. Uses can
# History of prostate cancer
# DVT prophylaxis-Eliquis
D/W RN at bed side
(History of von Willebrand factor disease listed on the chart. But pt or daughter not aware )
D/W Daughter on the phone and updated.
Time spent 53 min
Anticipated Discharge: 24 - 48 hours
Subjective/Interval History
-
Date of Service: July 08, 2023
Objective Data
-
Labs:
Laboratory Results
07/08/23
04:36
WBC 8.6
Hgb 15.2
Hct 46.2
Plt Count 190
Sodium 134 L
Potassium 3.3 L
Chloride 103
Carbon Dioxide 25
BUN 17
Creatinine 0.7
Glucose 97
Calcium 8.6
Vital Signs:
Vital Signs
Temp Pulse Resp BP Pulse Ox
98.3 F 69 18 161/95 85
07/08/23 07:15 07/08/23 08:38 07/08/23 04:00 07/08/23 08:38 07/08/23 04:00
I&O
07/07/23 07/08/23 07/09/23
06:59 06:59 06:59
Intake Total 680 / 680 655 / 655
Output Total 600 / 600 2470 / 2470
Balance 80 / 80 -1815 / -1815
[2023-07-08] MEDS: ORETIC 12.5 MG PO (09:46)
--- NOTE | 2023-07-08 11:00 | WOUNDNOTE ---
LEFT LATERAL LEG
--- NOTE | 2023-07-08 11:00 | WOUNDNOTE ---
RIGHT LOWER LEG
--- NOTE | 2023-07-08 11:10 | CM ---
Patient from [facility] with Dx stroke. BiPAP. PT & OT recommend skilled rehab. ST recommends skilled service. Seen by wound care nurse.
Spoke with patient who resides at [facility] with his .
The patient & recently moved into [facility], and patient says has needed more care that he does. The patient has been assisting his with her insulin injections, and their children are now helping with this.
The patient had been independent in ADLs and ambulatory with his SPC. Patient states knee problems and was therefore using a 'stool with wheels' to get around, as well as an electric w/c.
DME - SPC, electric w/c
No prior VN or SNF
PCP - Elsa Carreon
Pharmacy - [facility]
CM Consult: flor check Eliquis
Spoke with Ellie, pharmacist, [facility]; she requests tracy - MD sent.
Eliquis requires step therapy and would need a prior auth.
Xarelto 20mg #30 - cost is $425 for 1 month supply.
Message relayed to Nissa Soto & Sandra.
The patient prefers to go to [facility] rather than SNF.
Referral made to [facility].
Plan follow up with [facility] for acceptance.
[2023-07-08 11:11] LABS: Vitamin D, 25-OH*** 25.1 ng/mL (30-80)
--- NOTE | 2023-07-08 11:21 | WOUNDNOTE ---
[facility] RN NOTE: Reviewed chart and met with patient. Patient LE assessed with hospitalist. LE dry, flakey with +2 edema and venous stasis changes. Patient has what appears to be a bursted blister on right knee. The wound bed is pink and the loose,
blistered skin is still intact. Right LE with venous appearing wound with white adherent slough. Left lateral leg wound is shallow, pink, with a scant amount of drainage. Local wound care, cleaning and moisturizing of skin, and compression completed
as ordered. Sacrum is intact and barrier ointment was applied to friction appearing skin of left posterior thigh. Desenex ordered for MASD of groin and condom cath intact. Heels intact. Patient positioned on left semi-side lying position. Patient is
awake and alert. This securities underwriter reviewed care for skin care and interventions for venous stasis. Patient states understanding. He reports good intake with protein and requires repositioning/turning schedule. Patient reports sitting most of day and
night in recliner and uses a wheeled scooter for mobility. Recommended use of gel cushion when at home. Orders confirmed with hospitalist, SHON Mazariegos given update. Discharge and care plan updated. Will follow as needed.
[2023-07-08 11:44] LABS: Vitamin B12 656 pg/ml (239-931)
--- NOTE | 2023-07-08 11:45 | CARDSERVLU ---
Echocardiogram with Lumason completed after protocol screening completed. Allergies verified.
Patent IV site: __R FA___
IV site flushed with 0.9% NaCl pre and post administration.
Diluted bolus method utilized to enhance visualization of ventricular romero.
Total volume given: __1.5__ mL
Patient tolerated all procedures well without complications.
[2023-07-08] MEDS: HYDROPHOR 1 APPLIC TOPICAL (14:05)
[2023-07-08] MEDS: LIPITOR 40 MG PO (16:57)
--- NOTE | 2023-07-08 18:01 | PTCARENOTE ---
Rec'd pt this AM. Pt voided large amount of urine. vital signs stable. Educated pt on benefit of going to acute rehab. discussed wound care. Now resting comfortably
[2023-07-08 19:07] LABS: Hepatitis C Antibody Negative (Negative)
[2023-07-09] VITALS (10 sets, daily range): BP systolic 103–141; BP diastolic 74–92; PULSE 2–84; BMI 43.3
--- NOTE | 2023-07-09 03:59 | PTCARENOTE ---
Pt awake and asking for BIPAP to be removed. HR in the 50's in Afib on the monitor when sleeping. POX 90-93% on RA while awake, POX in the low 80's on RA when sleeping. BIPAP on and off t/o the night when pt sleeping. #[address] draining elaina
urine. Pt positioning self in bed per comfort. Legs elevated on pillows. NIH assessed 3- no changes at this time. Vital signs stable. No issues to report. Will monitor.
[2023-07-09] MEDS: TYLENOL 1000 MG PO ×3 (04:18→23:45)
[2023-07-09 05:30] LABS: Hematocrit 46.4 % (39.0-52.0); Hemoglobin 15.4 g/dL (13.0-18.0); Mean Corp Hgb Conc. 33.2 g/dL (33.0-37.0); Mean Corpuscular Hgb 29.4 pg (27.0-31.0); Mean Corpuscular Volume 88.7 fL (80.0-94.0); Mean Platelet Volume 10.9 fL (7.4-10.4); Platelet Count 200 10^3/uL (130-400); Red Blood Cell Count 5.23 10^6/uL (4.70-6.10); Red Cell Dist. Width 13.2 % (11.5-14.5); White Blood Cell Count 7.6 10^3/uL (4.8-10.8)
[2023-07-09 06:02] LABS: Blood Urea Nitrogen 16 mg/dl (9-20); Carbon Dioxide 25 mmol/L (22-30); Chloride 100 mmol/L (98-107); Estimated Creatinine Clearance 112 ml/min; Glucose 91 mg/dl (70-99); Potassium 3.4 mmol/L (3.5-5.1); Sodium 134 mmol/L (135-145); eGFR > 60.00
--- NOTE | 2023-07-09 08:02 | W.PN.CD ---
Addendum entered and electronically signed by Silvano Soto MD 07/09/23 08:50:
Our office will investigate preauthorization for eliquis
[employer] for this pt should provide card for 30 day FREE supply of eliquis 5mg bid to patient at time of discharge
Thanks
Original Note:
Today's Communication / Plan
-
- no further inpatient cardiac workup is anticipated and I will sign off
- MEDS: amlodipine 10 qd, Eliquis 5 po BID, HCTZ 12.5 po qd, olmesartan 40 QD, atorvastatin 40 po qd. Continue to hold atenolol
- Follow up: Fiona Morris Jul 22 at 11:00 AM
Impression / Plan
-
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
- statin
- AC
#Atrial fibrillation: Unknown duration, unknown symptoms.
- rate controlled without meds
- AC started
- Eventual plan re: rate vs rhythm to be determined
#TATIANA not compliant with CPAP: recommend eval and treatment as an outpatient.He is asking about Inspire device. I told him this would be a referral to see ENT electively
#Chronic venous stasis with ulcers: just received IV lasix, wound care c/s, compression when able.
# RBBB; will check echo
# HTN chronic, elevated- olmesartan is at 40mg daily which is typically max dose. Amlodipine at 10 which is also max. Would add HCTZ 12.5 qd (ADDED)
# HLD: chronic
#morbid obesity: BMI 43 with CVA may benefit GLP1 agonist, can consider with PCP
#Dispo
- no further inpatient cardiac workup is anticipated and I will sign off
- MEDS: amlodipine 10 qd, Eliquis 5 po BID, HCTZ 12.5 po qd, olmesartan 40 QD, atorvastatin 40 po qd. Continue to hold atenolol
- Follow up: Fiona Morris Jul 22 at 11:00 AM
Subjective: No CP, palps, or dyspnea.
Laboratory Data
07/09/23
04:10
Hgb 15.4
Creatinine 0.7
Selected Entries
07/06/23
10:39 07/09/23
04:16
Actual Weight 293 lb 3.437 oz 276 lb 7 oz
Generic Name Dose Route Start Last Admin
Trade Name Freq PRN Reason Stop Dose Admin
Amlodipine Besylate 10 mg 07/07/23 08:00 07/08/23 08:38
Amlodipine 10 Mg Tablet PO 08/04/23 07:59 10 mg
DAILY KARLA
Apixaban 5 mg 07/08/23 08:00 07/08/23 19:42
Apixaban (Eliquis) 5 Mg Tablet PO 08/05/23 07:59 5 mg
BID KARLA
Hydrochlorothiazide 12.5 mg 07/08/23 08:30 07/08/23 09:46
Hydrochlorothiazide 12.5 Mg Tablet PO 08/05/23 08:29 12.5 mg
DAILY KARLA
Atenolol 50 mg 07/07/23 08:00 07/07/23 10:21
Atenolol 50 Mg Tablet PO 08/04/23 07:59 Not Given
DAILY KARLA
Olmesartan 40 mg 07/07/23 08:00 07/08/23 08:37
Olmesartan 20 Mg Tablet PO 08/04/23 07:59 40 mg
DAILY KARLA
Atorvastatin Calcium 40 mg 07/06/23 18:00 07/08/23 16:57
Atorvastatin (Lipitor) 40 Mg Tablet PO 08/03/23 17:59 40 mg
QPM KARLA
Physical Exam
Vital Signs/Labs
Vital Signs
Temp Pulse Resp BP Pulse Ox
36.6 C 74 24 141/92 93
07/09/23 04:16 07/09/23 06:13 07/09/23 06:13 07/09/23 06:13 07/09/23 06:13
07/08/23 07/09/23 07/10/23
06:59 06:59 06:59
Actual Weight 282 lb 12.8 oz 276 lb 7 oz
07/09/23 04:10
07/09/23 04:10
APTT Cancelled 07/06/23 19:30
Triglycerides 101 mg/dl (10-149) 07/07/23 04:45
LDL Cholesterol, Calc 46 mg/dl 07/07/23 04:45
VLDL Cholesterol, Calc 20 mg/dl (0-30) 07/07/23 04:45
HDL Cholesterol 47 mg/dl 07/07/23 04:45
07/07/23
04:45
[id number] Pept 592
Physical Exam
Constitutional: No acute distress
EENT: Anicteric and Moist mucous membranes
Cardiovascular: Pedal edema is absent, Systolic murmur absent, Diastolic murmur absent and Rhythm/rate is irregular
Respiratory: Respiratory effort normal, Lungs clear to auscul., Wheeze Absent and Crackles Absent
GI: Soft, Distention absent and Non tender
Neuro/Psych: Alert and Oriented
Data Reviewed
-
Date of Service: July 09, 2023
Echo: Report Reviewed by me
--- NOTE | 2023-07-09 08:28 | CON.MD ---
Documented by User: Mini Wang PA-C 07/09/23 16:51
Consultation - Medical
-
Referring Provider:Dr. Idalmis Flores
Chief Complaint: CVA
History of Present Illness: 77-year-old male with PMH of ( gait dysfunction, hypertension, history of prostate cancer, morbid obesity, hyperlipidemia, chronic venous wounds on bilateral lower extremities) brought to [facility] on 07/06/2023 for
abrupt change in mentation, headache, disorientation and inability to use his phone appropriately. He denied any speech or swallowing issues. He also noticed left-sided impairment in vision. He denied any weakness or numbness. Patient with
history of chronic shortness of breath that had recently increased. Recently diagnosed with atrial fibrillation. Denies any previous diagnosis of A-fib. He was been followed by insurance territory manager in [place] which he has not seen for the past few
years. CT scan of the head shows decreased attenuation in the right temporal and occipital lobes, most consistent with acute/subacute nonhemorrhagic infarct. Followed by MRI of the head that reveals a large area of nonhemorrhagic infarct
consistent with CT scan results. With possible tiny acute/subacute nonhemorrhagic infarct in the right thalamus as well. Mild diffuse volume loss.
Patient was not a candidate for either tenecteplase or intra-arterial thrombectomy due to timeframe out of window
MRI of Brain
Large area of nonhemorrhagic infarct consistent with the CT scan from the day before. This involves the medial aspect of the right temporal lobe and right occipital lobe and adjacent cytotoxic edema.
No intraparenchymal hemorrhage. No intraventricular hemorrhage. No midline shift or downward herniation.
Possible tiny acute/subacute nonhemorrhagic infarct in the right thalamus.
Mild diffuse volume loss.
HEAD CTA:
1. ACUTE COMPLETE OCCLUSION of the P2 segment of the RIGHT POSTERIOR CEREBRAL ARTERY with an associated LARGE ACUTE ISCHEMIC INFARCT in the RIGHT OCCIPITAL and TEMPORAL LOBES containing severe cytotoxic edema.
2. 70% diameter stenosis in the P2 segment of the left posterior cerebral artery.
3. 50% diameter stenosis in the distal right intracranial vertebral artery.
4. Severe calcific atherosclerotic plaque in both proximal intracranial vertebral arteries.
5. Severe calcific atherosclerotic plaque in the intracranial right internal carotid artery causing 25-50% diameter stenosis.
6. Patent anterior communicating and left posterior communicating artery supplying blood to the left middle and anterior cerebral arteries which remain patent secondary to collateral blood flow in the setting of a proximal left internal carotid
artery occlusion.
NECK CTA:
1. COMPLETE OCCLUSION of the PROXIMAL LEFT INTERNAL CAROTID ARTERY.
2. Less than 25% diameter stenosis in the proximal right internal carotid artery.
3. Greater than 70% diameter stenosis at the origin of the right vertebral artery.
4. No CTA evidence for left vertebral artery stenosis or occlusion.
5. Moderate-sized right and small left pleural effusions.
6. Mild centrilobular consolidation and ground-glass opacity in the right upper lobe which could be secondary to alveolar pulmonary edema or infection.
7. 1.0 cm nodule in the anterior segment of the right upper lobe which could be secondary to infection or alveolar pulmonary edema. A malignant pulmonary nodule is an alternative diagnostic possibility.
8. Severe multilevel discogenic degenerative disease in the cervical spine which is greatest at C6/C7 with a disc-osteophyte complex causing moderate spinal cord compression, moderate central canal stenosis, and severe bilateral neural foraminal
narrowing.
SINGLE NODULES
LOW RISK: Less than 6 mm: No routine follow-up. 6-8 mm nodules: CT at 6-12 months, then consider CT at 18-24 months. Greater than 8 mm: Consider CT at 3 months, PET/CT, or tissue sampling. Nodules less than 6 mm do not require routine
follow-up, but certain patients at high risk with suspicious nodule morphology, upper lobe location, or both may warrant 12 month follow-up
HIGH RISK: Nodules less than 6 mm: Optional CT at 12 months. 6-8 mm: CT at 6-12 months, then CT at 18-24 months. Greater than 8 mm: Consider CT at 3 months, PET/CT, or tissue sampling. Nodules less than 6 mm do not require routine follow-up,
but certain patients at high risk with suspicious nodule morphology, upper lobe location, or both may warrant 12 month follow-up.
Transthoracic Echo - 07/07
Normal left ventricular size, wall thickness and systolic function.
No regional wall motion abnormalities are seen.
LV ejection fraction is 55-60% by Katz's method of discs.
Normal right ventricular size and function.
Mild mitral regurgitation.
Trace aortic regurgitation.
Mild tricuspid regurgitation.
Estimated pulmonary artery pressure of 45 mmHg., assuming a right atrial
pressure of 3 mmHg.
Mild pulmonary hypertension.
No prior study for comparison.����
Chest Xray 07/07
1. MILD to MODERATE ACUTE INTERSTITIAL and ALVEOLAR CARDIOGENIC PULMONARY EDEMA.
2. Small bilateral pleural effusions (right larger than left).
3. Moderate cardiomegaly.
4. Moderate mediastinal lipomatosis.
CT of chest 07/08
Groundglass nodule within the right upper lobe, measuring 1 cm in diameter. As per Fleischner Society recommendations for subsolid nodules, repeat chest CT is suggested at 6-12 months.
2. Solid nodule within the right lower lobe, measuring 5 mm in diameter.
3. Small bilateral pleural effusions, right greater than left. Right basilar subsegmental atelectasis.
4. Nodular contour of the liver, suggestive of cirrhosis in the correct clinical setting.
5. 2.3 cm left adrenal nodule, incompletely characterized on the current chest CT. Consider adrenal protocol CT or MRI of the abdomen for further characterization.
6. Mild coronary arterial calcification. Please correlate with symptoms of and risk factors for coronary artery disease, with further workup as clinically appropriate.�����������
CERVICAL SPINE: There is loss of the normal cervical lordosis with a mild kyphosis at C4/C5. There is severe discogenic degenerative disease at C3/C4, C5/C6, and C6/C7 with severe loss of intervertebral disc space height and moderate-sized vertebral
body endplate osteophytes. There is osseous fusion across the right C2/C3 and C4/C5 facet joints. There are central disc-osteophyte complexes at C3/C4, C4/C5, C5/C6, and C6/C7 causing moderate spinal cord compression and central canal stenosis at
C6/C7 and mild spinal cord compression and central canal stenosis at the other cervical levels. There is severe bilateral neural foraminal narrowing at C6/C7 and severe left neural foraminal narrowing at C5/C6. There is no abnormal prevertebral soft
tissue swelling.
Past Medical History: A-fib, sleep apnea, gait dysfunction, Right knee OA, cervical OA, left shoulder pain and torn right biceps, hypertension, history of prostate cancer, morbid obesity, hyperlipidemia, chronic venous wounds on bilateral lower
extremities
Procedure History: No documented surgeries.
Family History: Not pertinent
Social History:
Functional Level Premorbidly: Independent with all activities . Uses rolling stool to move around apartment due to right knee. Uses motorized scooter to get to the dining gagnon/outside of apartment. He manages 's medication who has h/o stroke
with hemiplegic arm. Assisted living does all meals, laundry, cleaning. sleeps in a recliner at home.
Functional Level Currently: Bed mobility�mod assist, transfer�mod assist, stand/pivot/sit�mod assist of 2, leans heavily on therapists, can stand with strong support of 2 people, eating, grooming�set up, toileting�dependent, lower extremity
self-care�dependent,
Tobacco: Denies
Alcohol: Occasional
Drug use: Denies
Lives with: at [facility] assisted living
24-hour assistance available: yes
Number of floors: 1
# steps to enter: none
# steps to second floor: 0
Potential First floor set up: yes, sleeps in recliner
Driving: Yes
Occupation: Retired
Allergies:
Allergy/AdvReac Type Severity Reaction Status Date / Time
No Known Allergies Allergy Unverified 07/06/23 10:37
Review of Systems:
Constitutional: (x)
Eye: (x) Normal _
Ear/Nose/Throat: (x) Normal _
Respiratory: (x) sob
Cardiovascular: (x)Afib
Gastrointestinal: (x) Normal _
Genitourinary: (x) Normal _
Musculoskeletal: (x) right knee OA, pain, shoulders with torn biceps, rotator cuff issue
Integumentary: (x) small wounds and ecchymosis upper extremities, B/l legs wrapped
Neurologic: (x) CVA
Psychiatric: (x) Normal _
Endocrine: (x) Normal _
Hematologic/Lymphatic: (x) Normal _
Allergic/Immunologic: (x) Normal _
Medications:
Active Current Visit Medication List
Category Date Time Status
Acetaminophen [Tylenol] Med 07/06/23 17:26 Active
1,000 mg PO Q6HPRN PRN
Amlodipine [Norvasc] Med 07/07/23 08:00 Active
10 mg PO DAILY
Apixaban [Eliquis] Med 07/08/23 08:00 Active
5 mg PO BID
Atenolol [Tenormin] Med 07/07/23 08:00 Hold
50 mg PO DAILY
Atorvastatin [Lipitor] Med 07/06/23 18:00 Active
40 mg PO QPM
Cholecalciferol (Vitamin D3) [VITAMIN D3 ( Med 07/07/23 08:00 Active
cholecalciferol)]
125 mcg PO DAILY
Cholecalciferol (Vitamin D3) [VITAMIN D3 ( Med 07/09/23 08:00 Active
cholecalciferol)]
25 mcg PO DAILY
Flush (0.9% Sodium Chloride) [Flush (Nss)] Med 07/06/23 18:00 Active
See Dose Instructions IV PER PROTOCOL
Hydrochlorothiazide [Oretic] Med 07/08/23 08:30 Active
12.5 mg PO DAILY
Miconazole Nitrate [Desenex/Mitrazol/Zeasorb] Med 07/06/23 22:00 Active
See Dose Instructions TOPICAL BID
Multivitamin [Theragran] Med 07/07/23 08:00 Active
1 tablet PO DAILY
Olmesartan Medoxomil [Benicar] Med 07/07/23 08:00 Active
40 mg PO DAILY
Petrolatum/Mineral Oil [Hydrophor] Med 07/08/23 12:00 Active
See Dose Instructions TOPICAL DAILY
Vitals:
Temp Pulse Resp BP Pulse Ox
97.8 F 74 24 141/92 93
07/09/23 04:16 07/09/23 06:13 07/09/23 06:13 07/09/23 06:13 07/09/23 06:13
Height 5 ft 7 in
Actual Weight 125.39 kg
Body Mass Index (BMI) 43.3
Physical Exam:
General Appearance/Observation: Well-developed, well-nourished , obese male in NAD
Pain/Comfort Assessment: Denies currently
Mood/Affect: Appropriate, pleasant
Integumentary:
Eyes: Conjunctiva/Lids: normal Pupils: pupils equal round and reactive to light and Accommodation
Ears/Nose/Throat: oral mucosa moist, throat clear. Lips/Teeth/Gums: normal
Neck: muscle tightness bilaterally
Cardiovascular: Heart: irregular, no murmur
Pulses: dorsalis pedis 1+ bilaterally
Respiratory: Respiratory Effort/Chest Expansion: normal Auscultation:grossly Clear to auscultation bilaterally
Gastrointestinal: abdomen not tender, no distension, obese, normal abdominal bowel sounds
Genitourinary:Condom catheter
Extremities: Edema: bilaterally. Limited lower extremity exam due to legs wrapped in Arya down to heels due to wounds
Neurology Exam:
Orientation: Alert, Oriented to self, Time, Place
Memory: Intact for immediate medical concerns.
Speech: Intact
Comprehension: Intact
Two step command: Intact
Cranial Nerves:
CNII: Pupillary light reflex: Intact Visual Field: impaired on the left. Left homonymous hemianopia
CN III, IV, : Extraocular muscles: Impaired on the left side
CN V: Facial Sensation at Forehead: Intact , Maxilla: Intact, Mandible: Intact
CN VII: Facial movement: slight lips deviation to the right
CN VIII: Hearing: Normal
CN IX/X: Speech & swallow: Normal, Position of Uvula: Midline
CN XI: Shoulder shrug: Symmetric
CN XII: Tongue protrusion: Midline
Sensory:
Light touch: Intact in bilateral upper. Limited sensory exam of lower extremities wrapped in Aray for wound care
Reflexes:
Biceps: 1+ bilaterally
Brachioradialis: absent bilaterally
Triceps: 1 bilaterally
Patellar: absent bilaterally
Achilles: absent bilaterally
Babinski: No response bilaterally
Cerebellar: Dysmetria/Ataxia: No dysmetria
Musculoskeletal:
Motor: (Manual muscle scale 0-5)
Muscle SA EF WE EE FF FA HF KE DF EHL PF
Right 5 4 4 4 4 4 3 3 4 4 4
Left 5 4 4 4 4 4 3 3 4 4 4
Patient lying in bed with bilateral hip abducted and feet turned outward. Says that he normally ambulates with his feet facing outward.
Tone: normal in all extremities
Range of Motion: Limited range of motion of left upper extremity with abduction, adduction, overhead. Slightly diminished ROM of right shoulder with abduction
Lab Results
Labs
WBC 7.6 10^3/uL (4.8-10.8) 07/09/23 04:10
RBC 5.23 10^6/uL (4.70-6.10) 07/09/23 04:10
Hgb 15.4 g/dL (13.0-18.0) 07/09/23 04:10
Hct 46.4 % (39.0-52.0) 07/09/23 04:10
MCV 88.7 fL (80.0-94.0) 07/09/23 04:10
MCH 29.4 pg (27.0-31.0) 07/09/23 04:10
MCHC 33.2 g/dL (33.0-37.0) 07/09/23 04:10
RDW 13.2 % (11.5-14.5) 07/09/23 04:10
Plt Count 200 10^3/uL (130-400) 07/09/23 04:10
MPV 10.9 fL (7.4-10.4) H 07/09/23 04:10
Abs Immat Gran (auto) 0.0 10^3/uL (0-0.05) 07/06/23 10:42
Absolute Neuts (auto) 5.8 10^3/uL (1.4-6.5) 07/06/23 10:42
Absolute Lymphs (auto) 1.1 10^3/uL (1.2-3.4) L 07/06/23 10:42
Absolute Monos (auto) 0.8 10^3/uL (0.1-0.6) H 07/06/23 10:42
Absolute Eos (auto) 0.2 10^3/uL (0-0.7) 07/06/23 10:42
Absolute Basos (auto) 0.1 10^3/uL (0-0.2) 07/06/23 10:42
Immature Gran % 0.5 % (0-0.5) 07/06/23 10:42
Neutrophils % 71.6 % (42.2-75.2) 07/06/23 10:42
Lymphocytes % 14.1 % (20.5-51.1) L 07/06/23 10:42
Monocytes % 10.2 % (1.7-9.3) H 07/06/23 10:42
Eosinophils % 2.9 % (0-6) 07/06/23 10:42
Basophils % 0.7 % (0-2) 07/06/23 10:42
Nucleated RBC % 0 % (-) 07/06/23 10:42
APTT Cancelled 07/06/23 19:30
Sodium 134 mmol/L (135-145) L 07/09/23 04:10
Potassium 3.4 mmol/L (3.5-5.1) L 07/09/23 04:10
Chloride 100 mmol/L (98-107) 07/09/23 04:10
Carbon Dioxide 25 mmol/L (22-30) 07/09/23 04:10
BUN 16 mg/dl (9-20) 07/09/23 04:10
Creatinine 0.7 mg/dL (0.7-1.3) 07/09/23 04:10
Estimated Creat Clear 112 ml/min 07/09/23 04:10
eGFR > 60.00 07/09/23 04:10
Glucose 91 mg/dl (70-99) 07/09/23 04:10
Calcium 9.0 mg/dl (8.4-10.2) 07/09/23 04:10
Total Bilirubin 0.9 mg/dl (0.2-1.3) 07/06/23 10:42
AST 43 U/L (17-59) 07/06/23 10:42
ALT 40 U/L (0-50) 07/06/23 10:42
Alkaline Phosphatase 137 U/L (38-126) H 07/06/23 10:42
Pld-X-Qjzkxyozswo Pept 592 pg/ml 07/07/23 04:45
Total Protein 7.1 g/dl (6.3-8.2) 07/06/23 10:42
Albumin 3.7 g/dl (3.5-5.0) 07/06/23 10:42
Triglycerides 101 mg/dl (10-149) 07/07/23 04:45
Total Cholesterol 113 mg/dl (50-199) 07/07/23 04:45
LDL Cholesterol, Calc 46 mg/dl 07/07/23 04:45
VLDL Cholesterol, Calc 20 mg/dl (0-30) 07/07/23 04:45
HDL Cholesterol 47 mg/dl 07/07/23 04:45
Vitamin B12 656 pg/ml (239-931) 07/08/23 04:36
Vitamin D 25-Hydroxy 25.1 ng/mL (30-80) L 07/08/23 04:36
Urine Color Yellow 07/06/23 11:50
Urine Clarity Clear (Clear) 07/06/23 11:50
Urine pH 7.0 (5.0-9.0) 07/06/23 11:50
Ur Specific Loring 1.010 (<1.030) 07/06/23 11:50
Urine Ketones Negative (Negative) 07/06/23 11:50
Ur Occult Blood Reflex Negative (Negative) 07/06/23 11:50
Urine Nitrite (Reflex) Negative (Negative) 07/06/23 11:50
Urine Bilirubin Negative (Negative) 07/06/23 11:50
Urine Urobilinogen Negative (Neg - 1+) 07/06/23 11:50
Leukocyte Esterase Rfl 1+ (Negative) A 07/06/23 11:50
Urine RBC None seen /HPF (0-2) 07/06/23 11:50
Urine WBC (Reflex) 11-15 /HPF (0-5) A 07/06/23 11:50
Ur Squamous Epith Cells 0-2 /LPF (Few) 07/06/23 11:50
Granular Casts 0-2 /LPF (0) 07/06/23 11:50
Urine Glucose Negative (Negative) 07/06/23 11:50
Urine Albumin (Reflex) 1+ (Neg - Trace) A 07/06/23 11:50
Hepatitis C Antibody Negative (Negative) 07/07/23 04:45
�
Diagnostic Results: as per HPI
Assessment 77-year-old male with PMH of ( gait dysfunction, hypertension, history of prostate cancer, morbid obesity, hyperlipidemia, chronic venous wounds on bilateral lower extremities) brought to [facility] on 07/06/2023 for abrupt change in
mentation, headache, disorientation and inability to use his phone appropriately. He also noticed left-sided impairment in vision. CT scan of the head shows decreased attenuation in the right temporal and occipital lobes, most consistent with
acute/subacute nonhemorrhagic infarct. MRI of the head reveals a large area of nonhemorrhagic infarct consistent with CT scan results. With possible tiny acute/subacute nonhemorrhagic infarct in the right thalamus as well. Mild diffuse volume
loss. Patient was not a candidate for either tenecteplase or intra-arterial thrombectomy due to timeframe out of window
Plan
PT/OT to increase independence with ADLs, improve balance, coordination, endurance, strength, mobility, community reintegration, decreased burden of care on others and family education.
CVA:Large area of nonhemorrhagic infarct in the medial aspect of the right temporal lobe and right occipital lobe and adjacent cytotoxic edema. Subacute/acute infarct in right thalamus
Secondary prophylaxis with aspirin, statin, and blood pressure control (SBP less than 180 and diastolic less than 100 to participate with therapy for ischemic stroke). Continue to monitor neurologic status.
Left homonymous hemianopia : makes patient at increased risk for falls.� Will need therapy to work on scanning of environment for safe navigation.
Peripheral neuropathy: There are many potential etiologies common etiologies include diabetes, alcohol use, B12, thyroid disorder, It is reasonable to check a B12, TSH, and hemoglobin A1c. Patient at high risk of falling with subsequent
significant neuropathy.
HTN: amlodipine 10 qd, HCTZ 12.5 po qd, olmesartan 40 QD.Continue to hold atenolol���
Bradycardia: more pronounced at night around 30-40 Holding BB �
HLD: Atorvastatin 40mg
Atrial fibrillation/RBBB:� Continue Eliquis 5 bid, amlodipine 10 qd, HCTZ 12.5 po qd, olmesartan 40 QD, atorvastatin 40 po qd. Continue to hold atenolol�. ��Transthoracic Echo -07/07- LV ejection fraction is 55-60%
Normal left ventricular size, wall thickness and systolic function.
No regional wall motion abnormalities are seen.
LV ejection fraction is 55-60% by Katz's method of discs.
Normal right ventricular size and function.
Mild mitral regurgitation.
Trace aortic regurgitation.
Mild tricuspid regurgitation.
Estimated pulmonary artery pressure of 45 mmHg., assuming a right atrial
pressure of 3 mmHg.
Mild pulmonary hypertension.
No prior study for comparison.������������������������������
TATIANA:not compliant with CPAP:cardio recommend evaluation and treatment as an outpatient. Patient inquiring about Inspire device. Would be a referral to see ENT electively
Bilateral lower extremity edema: Consider TEDS as able. Increased fluid will cause more force requirement to move lower extremities which requires more strength and increases fatigue.
Hypokalemia:3.4 received K+
Psych: Psychology consult.� Monitor mood, adjust medications as needed.
Skin: monitor for pressure sores/rashes/lesions.
Pain: acetaminophen or oxycodone as needed.
Bowel: Colace and Senna, PRN bisacodyl.
Bladder: Time void, PVRs, PRN straight cath.
GI Prophylaxis: Pantoprazole
DVT Prophylaxis: Eliquis 5mg bid
Chronic venous stasis with ulcers: received IV lasix, wound care c/s, compression when able.
Pulmonary: Incentive spirometry
Morbid obesity: Continue to enrollment counselor patient about diet adjustments to control obesity. Body habitus and increased force to move body and extremities causes further difficulty with functional tasks. Per cardio:BMI 43 with CVA may benefit GLP1
agonist, can consider with PCP
Safety: Continue to reinforce assistance with all transfers.
Code Status:� Full code
Dispo (date/plan/equipment needs): Home with family care.� Social history reviewed.
Functional and Medical Goals: Modified Independent with ADL�s, ambulation, transfers
Summary of recommendations:
- Discharge Destination: Patient with CVA and left homonymous hemianopia at current level of Bed mobility�mod assist, transfer�mod assist, stand/pivot/sit�mod assist of 2, leans heavily on therapists, can stand with strong support of 2 people,
eating, grooming�set up, toileting�dependent, lower extremity self-care�dependent, would benefit from acute inpatient rehabilitation for PT/OT to increase independence with ADLs, improve balance, coordination, endurance, strength, mobility,
community reintegration, decreased burden of care on others and family education once medically stable.
CVA:Large area of nonhemorrhagic infarct in the medial aspect of the right temporal lobe and right occipital lobe and adjacent cytotoxic edema. Subacute/acute infarct in right thalamus
Secondary prophylaxis with aspirin, statin, and blood pressure control (SBP less than 180 and diastolic less than 100 to participate with therapy for ischemic stroke). Continue to monitor neurologic status.
Left homonymous hemianopia : makes patient at increased risk for falls.� Will need therapy to work on scanning of environment for safe navigation.
Peripheral neuropathy: There are many potential etiologies common etiologies include diabetes, alcohol use, B12, thyroid disorder, It is reasonable to check a B12, TSH, and hemoglobin A1c. Patient at high risk of falling with subsequent
significant neuropathy.
HTN: amlodipine 10 qd, HCTZ 12.5 po qd, olmesartan 40 QD.Continue to hold atenolol���
Hypokalemia:3.4 received K+. Monitor closely. repeat BMP
Pain: acetaminophen or oxycodone as needed.
Bowel: Colace and Senna, PRN bisacodyl.
Bladder: Time void, PVRs, PRN straight cath.
GI Prophylaxis: Pantoprazole
DVT Prophylaxis: Eliquis 5mg bid and mechanical
Chronic venous stasis with ulcers: Teds stocking. Continue wound care
Pulmonary: Incentive spirometry
Morbid obesity: Continue to enrollment counselor patient about diet adjustments to control obesity. Body habitus and increased force to move body and extremities causes further difficulty with functional tasks. Per cardio:BMI 43 with CVA may benefit GLP1
agonist, can consider with PCP
Thank you for allowing me to care for your patient. Please contact me with any questions or concerns.

Documented by User: Bill Carballo MD 07/11/23 13:49
Consultation - Medical
-
Referring Provider:Dr. Idalmis Flores
Chief Complaint: CVA
History of Present Illness: 77-year-old male with PMH of ( gait dysfunction, hypertension, history of prostate cancer, morbid obesity, hyperlipidemia, chronic venous wounds on bilateral lower extremities) brought to [facility] on 07/06/2023 for
abrupt change in mentation, headache, disorientation and inability to use his phone appropriately. He denied any speech or swallowing issues. He also noticed left-sided impairment in vision. He denied any weakness or numbness. Patient with
history of chronic shortness of breath that had recently increased. Recently diagnosed with atrial fibrillation. Denies any previous diagnosis of A-fib. He was been followed by insurance territory manager in [place] which he has not seen for the past few
years. CT scan of the head shows decreased attenuation in the right temporal and occipital lobes, most consistent with acute/subacute nonhemorrhagic infarct. Followed by MRI of the head that reveals a large area of nonhemorrhagic infarct
consistent with CT scan results. With possible tiny acute/subacute nonhemorrhagic infarct in the right thalamus as well. Mild diffuse volume loss.
Patient was not a candidate for either tenecteplase or intra-arterial thrombectomy due to timeframe out of window
MRI of Brain
Large area of nonhemorrhagic infarct consistent with the CT scan from the day before. This involves the medial aspect of the right temporal lobe and right occipital lobe and adjacent cytotoxic edema.
No intraparenchymal hemorrhage. No intraventricular hemorrhage. No midline shift or downward herniation.
Possible tiny acute/subacute nonhemorrhagic infarct in the right thalamus.
Mild diffuse volume loss.
HEAD CTA:
1. ACUTE COMPLETE OCCLUSION of the P2 segment of the RIGHT POSTERIOR CEREBRAL ARTERY with an associated LARGE ACUTE ISCHEMIC INFARCT in the RIGHT OCCIPITAL and TEMPORAL LOBES containing severe cytotoxic edema.
2. 70% diameter stenosis in the P2 segment of the left posterior cerebral artery.
3. 50% diameter stenosis in the distal right intracranial vertebral artery.
4. Severe calcific atherosclerotic plaque in both proximal intracranial vertebral arteries.
5. Severe calcific atherosclerotic plaque in the intracranial right internal carotid artery causing 25-50% diameter stenosis.
6. Patent anterior communicating and left posterior communicating artery supplying blood to the left middle and anterior cerebral arteries which remain patent secondary to collateral blood flow in the setting of a proximal left internal carotid
artery occlusion.
NECK CTA:
1. COMPLETE OCCLUSION of the PROXIMAL LEFT INTERNAL CAROTID ARTERY.
2. Less than 25% diameter stenosis in the proximal right internal carotid artery.
3. Greater than 70% diameter stenosis at the origin of the right vertebral artery.
4. No CTA evidence for left vertebral artery stenosis or occlusion.
5. Moderate-sized right and small left pleural effusions.
6. Mild centrilobular consolidation and ground-glass opacity in the right upper lobe which could be secondary to alveolar pulmonary edema or infection.
7. 1.0 cm nodule in the anterior segment of the right upper lobe which could be secondary to infection or alveolar pulmonary edema. A malignant pulmonary nodule is an alternative diagnostic possibility.
8. Severe multilevel discogenic degenerative disease in the cervical spine which is greatest at C6/C7 with a disc-osteophyte complex causing moderate spinal cord compression, moderate central canal stenosis, and severe bilateral neural foraminal
narrowing.
SINGLE NODULES
LOW RISK: Less than 6 mm: No routine follow-up. 6-8 mm nodules: CT at 6-12 months, then consider CT at 18-24 months. Greater than 8 mm: Consider CT at 3 months, PET/CT, or tissue sampling. Nodules less than 6 mm do not require routine
follow-up, but certain patients at high risk with suspicious nodule morphology, upper lobe location, or both may warrant 12 month follow-up
HIGH RISK: Nodules less than 6 mm: Optional CT at 12 months. 6-8 mm: CT at 6-12 months, then CT at 18-24 months. Greater than 8 mm: Consider CT at 3 months, PET/CT, or tissue sampling. Nodules less than 6 mm do not require routine follow-up,
but certain patients at high risk with suspicious nodule morphology, upper lobe location, or both may warrant 12 month follow-up.
Transthoracic Echo - 07/07
Normal left ventricular size, wall thickness and systolic function.
No regional wall motion abnormalities are seen.
LV ejection fraction is 55-60% by Katz's method of discs.
Normal right ventricular size and function.
Mild mitral regurgitation.
Trace aortic regurgitation.
Mild tricuspid regurgitation.
Estimated pulmonary artery pressure of 45 mmHg., assuming a right atrial
pressure of 3 mmHg.
Mild pulmonary hypertension.
No prior study for comparison.����
Chest Xray 07/07
1. MILD to MODERATE ACUTE INTERSTITIAL and ALVEOLAR CARDIOGENIC PULMONARY EDEMA.
2. Small bilateral pleural effusions (right larger than left).
3. Moderate cardiomegaly.
4. Moderate mediastinal lipomatosis.
CT of chest 07/08
Groundglass nodule within the right upper lobe, measuring 1 cm in diameter. As per Fleischner Society recommendations for subsolid nodules, repeat chest CT is suggested at 6-12 months.
2. Solid nodule within the right lower lobe, measuring 5 mm in diameter.
3. Small bilateral pleural effusions, right greater than left. Right basilar subsegmental atelectasis.
4. Nodular contour of the liver, suggestive of cirrhosis in the correct clinical setting.
5. 2.3 cm left adrenal nodule, incompletely characterized on the current chest CT. Consider adrenal protocol CT or MRI of the abdomen for further characterization.
6. Mild coronary arterial calcification. Please correlate with symptoms of and risk factors for coronary artery disease, with further workup as clinically appropriate.�����������
CERVICAL SPINE: There is loss of the normal cervical lordosis with a mild kyphosis at C4/C5. There is severe discogenic degenerative disease at C3/C4, C5/C6, and C6/C7 with severe loss of intervertebral disc space height and moderate-sized vertebral
body endplate osteophytes. There is osseous fusion across the right C2/C3 and C4/C5 facet joints. There are central disc-osteophyte complexes at C3/C4, C4/C5, C5/C6, and C6/C7 causing moderate spinal cord compression and central canal stenosis at
C6/C7 and mild spinal cord compression and central canal stenosis at the other cervical levels. There is severe bilateral neural foraminal narrowing at C6/C7 and severe left neural foraminal narrowing at C5/C6. There is no abnormal prevertebral soft
tissue swelling.
Past Medical History: A-fib, sleep apnea, gait dysfunction, Right knee OA, cervical OA, left shoulder pain and torn right biceps, hypertension, history of prostate cancer, morbid obesity, hyperlipidemia, chronic venous wounds on bilateral lower
extremities
Procedure History: No documented surgeries.
Family History: Not pertinent
Social History:
Functional Level Premorbidly: Independent with all activities . Uses rolling stool to move around apartment due to right knee. Uses motorized scooter to get to the dining gagnon/outside of apartment. He manages 's medication who has h/o stroke
with hemiplegic arm. Assisted living does all meals, laundry, cleaning. sleeps in a recliner at home.
Functional Level Currently: Bed mobility�mod assist, transfer�mod assist, stand/pivot/sit�mod assist of 2, leans heavily on therapists, can stand with strong support of 2 people, eating, grooming�set up, toileting�dependent, lower extremity
self-care�dependent,
Tobacco: Denies
Alcohol: Occasional
Drug use: Denies
Lives with: at [facility] assisted [facility]
24-hour assistance available: yes
Number of floors: 1
# steps to enter: none
# steps to second floor: 0
Potential First floor set up: yes, sleeps in recliner
Driving: Yes
Occupation: Retired
Allergies:
Allergy/AdvReac Type Severity Reaction Status Date / Time
No Known Allergies Allergy Unverified 07/06/23 10:37
Review of Systems:
Constitutional: (x)
Eye: (x) Normal _
Ear/Nose/Throat: (x) Normal _
Respiratory: (x) sob
Cardiovascular: (x)Afib
Gastrointestinal: (x) Normal _
Genitourinary: (x) Normal _
Musculoskeletal: (x) right knee OA, pain, shoulders with torn biceps, rotator cuff issue
Integumentary: (x) small wounds and ecchymosis upper extremities, B/l legs wrapped
Neurologic: (x) CVA
Psychiatric: (x) Normal _
Endocrine: (x) Normal _
Hematologic/Lymphatic: (x) Normal _
Allergic/Immunologic: (x) Normal _
Medications:
Active Current Visit Medication List
Category Date Time Status
Acetaminophen [Tylenol] Med 07/06/23 17:26 Active
1,000 mg PO Q6HPRN PRN
Amlodipine [Norvasc] Med 07/07/23 08:00 Active
10 mg PO DAILY
Apixaban [Eliquis] Med 07/08/23 08:00 Active
5 mg PO BID
Atenolol [Tenormin] Med 07/07/23 08:00 Hold
50 mg PO DAILY
Atorvastatin [Lipitor] Med 07/06/23 18:00 Active
40 mg PO QPM
Cholecalciferol (Vitamin D3) [VITAMIN D3 ( Med 07/07/23 08:00 Active
cholecalciferol)]
125 mcg PO DAILY
Cholecalciferol (Vitamin D3) [VITAMIN D3 ( Med 07/09/23 08:00 Active
cholecalciferol)]
25 mcg PO DAILY
Flush (0.9% Sodium Chloride) [Flush (Nss)] Med 07/06/23 18:00 Active
See Dose Instructions IV PER PROTOCOL
Hydrochlorothiazide [Oretic] Med 07/08/23 08:30 Active
12.5 mg PO DAILY
Miconazole Nitrate [Desenex/Mitrazol/Zeasorb] Med 07/06/23 22:00 Active
See Dose Instructions TOPICAL BID
Multivitamin [Theragran] Med 07/07/23 08:00 Active
1 tablet PO DAILY
Olmesartan Medoxomil [Benicar] Med 07/07/23 08:00 Active
40 mg PO DAILY
Petrolatum/Mineral Oil [Hydrophor] Med 07/08/23 12:00 Active
See Dose Instructions TOPICAL DAILY
Vitals:
Temp Pulse Resp BP Pulse Ox
97.8 F 74 24 141/92 93
07/09/23 04:16 07/09/23 06:13 07/09/23 06:13 07/09/23 06:13 07/09/23 06:13
Height 5 ft 7 in
Actual Weight 125.39 kg
Body Mass Index (BMI) 43.3
Physical Exam:
General Appearance/Observation: Well-developed, well-nourished , obese male in NAD
Pain/Comfort Assessment: Denies currently
Mood/Affect: Appropriate, pleasant
Integumentary:
Eyes: Conjunctiva/Lids: normal Pupils: pupils equal round and reactive to light and Accommodation
Ears/Nose/Throat: oral mucosa moist, throat clear. Lips/Teeth/Gums: normal
Neck: muscle tightness bilaterally
Cardiovascular: Heart: irregular, no murmur
Pulses: dorsalis pedis 1+ bilaterally
Respiratory: Respiratory Effort/Chest Expansion: normal Auscultation:grossly Clear to auscultation bilaterally
Gastrointestinal: abdomen not tender, no distension, obese, normal abdominal bowel sounds
Genitourinary:Condom catheter
Extremities: Edema: bilaterally. Limited lower extremity exam due to legs wrapped in Arya down to heels due to wounds
Neurology Exam:
Orientation: Alert, Oriented to self, Time, Place
Memory: Intact for immediate medical concerns.
Speech: Intact
Comprehension: Intact
Two step command: Intact
Cranial Nerves:
CNII: Pupillary light reflex: Intact Visual Field: impaired on the left. Left homonymous hemianopia
CN III, IV, : Extraocular muscles: Impaired on the left side
CN V: Facial Sensation at Forehead: Intact , Maxilla: Intact, Mandible: Intact
CN VII: Facial movement: slight lips deviation to the right
CN VIII: Hearing: Normal
CN IX/X: Speech & swallow: Normal, Position of Uvula: Midline
CN XI: Shoulder shrug: Symmetric
CN XII: Tongue protrusion: Midline
Sensory:
Light touch: Intact in bilateral upper. Limited sensory exam of lower extremities wrapped in Arya for wound care
Reflexes:
Biceps: 1+ bilaterally
Brachioradialis: absent bilaterally
Triceps: 1 bilaterally
Patellar: absent bilaterally
Achilles: absent bilaterally
Babinski: No response bilaterally
Cerebellar: Dysmetria/Ataxia: No dysmetria
Musculoskeletal:
Motor: (Manual muscle scale 0-5)
Muscle SA EF WE EE FF FA HF KE DF EHL PF
Right 5 4 4 4 4 4 3 3 4 4 4
Left 5 4 4 4 4 4 3 3 4 4 4
Patient lying in bed with bilateral hip abducted and feet turned outward. Says that he normally ambulates with his feet facing outward.
Tone: normal in all extremities
Range of Motion: Limited range of motion of left upper extremity with abduction, adduction, overhead. Slightly diminished ROM of right shoulder with abduction
Lab Results
Labs
WBC 7.6 10^3/uL (4.8-10.8) 07/09/23 04:10
RBC 5.23 10^6/uL (4.70-6.10) 07/09/23 04:10
Hgb 15.4 g/dL (13.0-18.0) 07/09/23 04:10
Hct 46.4 % (39.0-52.0) 07/09/23 04:10
MCV 88.7 fL (80.0-94.0) 07/09/23 04:10
MCH 29.4 pg (27.0-31.0) 07/09/23 04:10
MCHC 33.2 g/dL (33.0-37.0) 07/09/23 04:10
RDW 13.2 % (11.5-14.5) 07/09/23 04:10
Plt Count 200 10^3/uL (130-400) 07/09/23 04:10
MPV 10.9 fL (7.4-10.4) H 07/09/23 04:10
Abs Immat Gran (auto) 0.0 10^3/uL (0-0.05) 07/06/23 10:42
Absolute Neuts (auto) 5.8 10^3/uL (1.4-6.5) 07/06/23 10:42
Absolute Lymphs (auto) 1.1 10^3/uL (1.2-3.4) L 07/06/23 10:42
Absolute Monos (auto) 0.8 10^3/uL (0.1-0.6) H 07/06/23 10:42
Absolute Eos (auto) 0.2 10^3/uL (0-0.7) 07/06/23 10:42
Absolute Basos (auto) 0.1 10^3/uL (0-0.2) 07/06/23 10:42
Immature Gran % 0.5 % (0-0.5) 07/06/23 10:42
Neutrophils % 71.6 % (42.2-75.2) 07/06/23 10:42
Lymphocytes % 14.1 % (20.5-51.1) L 07/06/23 10:42
Monocytes % 10.2 % (1.7-9.3) H 07/06/23 10:42
Eosinophils % 2.9 % (0-6) 07/06/23 10:42
Basophils % 0.7 % (0-2) 07/06/23 10:42
Nucleated RBC % 0 % (-) 07/06/23 10:42
APTT Cancelled 07/06/23 19:30
Sodium 134 mmol/L (135-145) L 07/09/23 04:10
Potassium 3.4 mmol/L (3.5-5.1) L 07/09/23 04:10
Chloride 100 mmol/L (98-107) 07/09/23 04:10
Carbon Dioxide 25 mmol/L (22-30) 07/09/23 04:10
BUN 16 mg/dl (9-20) 07/09/23 04:10
Creatinine 0.7 mg/dL (0.7-1.3) 07/09/23 04:10
Estimated Creat Clear 112 ml/min 07/09/23 04:10
eGFR > 60.00 07/09/23 04:10
Glucose 91 mg/dl (70-99) 07/09/23 04:10
Calcium 9.0 mg/dl (8.4-10.2) 07/09/23 04:10
Total Bilirubin 0.9 mg/dl (0.2-1.3) 07/06/23 10:42
AST 43 U/L (17-59) 07/06/23 10:42
ALT 40 U/L (0-50) 07/06/23 10:42
Alkaline Phosphatase 137 U/L (38-126) H 07/06/23 10:42
Bgw-Z-Tuxwsumtmld Pept 592 pg/ml 07/07/23 04:45
Total Protein 7.1 g/dl (6.3-8.2) 07/06/23 10:42
Albumin 3.7 g/dl (3.5-5.0) 07/06/23 10:42
Triglycerides 101 mg/dl (10-149) 07/07/23 04:45
Total Cholesterol 113 mg/dl (50-199) 07/07/23 04:45
LDL Cholesterol, Calc 46 mg/dl 07/07/23 04:45
VLDL Cholesterol, Calc 20 mg/dl (0-30) 07/07/23 04:45
HDL Cholesterol 47 mg/dl 07/07/23 04:45
Vitamin B12 656 pg/ml (239-931) 07/08/23 04:36
Vitamin D 25-Hydroxy 25.1 ng/mL (30-80) L 07/08/23 04:36
Urine Color Yellow 07/06/23 11:50
Urine Clarity Clear (Clear) 07/06/23 11:50
Urine pH 7.0 (5.0-9.0) 07/06/23 11:50
Ur Specific Loring 1.010 (<1.030) 07/06/23 11:50
Urine Ketones Negative (Negative) 07/06/23 11:50
Ur Occult Blood Reflex Negative (Negative) 07/06/23 11:50
Urine Nitrite (Reflex) Negative (Negative) 07/06/23 11:50
Urine Bilirubin Negative (Negative) 07/06/23 11:50
Urine Urobilinogen Negative (Neg - 1+) 07/06/23 11:50
Leukocyte Esterase Rfl 1+ (Negative) A 07/06/23 11:50
Urine RBC None seen /HPF (0-2) 07/06/23 11:50
Urine WBC (Reflex) 11-15 /HPF (0-5) A 07/06/23 11:50
Ur Squamous Epith Cells 0-2 /LPF (Few) 07/06/23 11:50
Granular Casts 0-2 /LPF (0) 07/06/23 11:50
Urine Glucose Negative (Negative) 07/06/23 11:50
Urine Albumin (Reflex) 1+ (Neg - Trace) A 07/06/23 11:50
Hepatitis C Antibody Negative (Negative) 07/07/23 04:45
�
Diagnostic Results: as per HPI
Assessment 77-year-old male with PMH of ( gait dysfunction, hypertension, history of prostate cancer, morbid obesity, hyperlipidemia, chronic venous wounds on bilateral lower extremities) brought to [facility] on 07/06/2023 for abrupt change in
mentation, headache, disorientation and inability to use his phone appropriately. He also noticed left-sided impairment in vision. CT scan of the head shows decreased attenuation in the right temporal and occipital lobes, most consistent with
acute/subacute nonhemorrhagic infarct. MRI of the head reveals a large area of nonhemorrhagic infarct consistent with CT scan results. With possible tiny acute/subacute nonhemorrhagic infarct in the right thalamus as well. Mild diffuse volume
loss. Patient was not a candidate for either tenecteplase or intra-arterial thrombectomy due to timeframe out of window
Plan
PT/OT to increase independence with ADLs, improve balance, coordination, endurance, strength, mobility, community reintegration, decreased burden of care on others and family education.
CVA:Large area of nonhemorrhagic infarct in the medial aspect of the right temporal lobe and right occipital lobe and adjacent cytotoxic edema. Subacute/acute infarct in right thalamus
Secondary prophylaxis with aspirin, statin, and blood pressure control (SBP less than 180 and diastolic less than 100 to participate with therapy for ischemic stroke). Continue to monitor neurologic status.
Left homonymous hemianopia : makes patient at increased risk for falls.� Will need therapy to work on scanning of environment for safe navigation.
Peripheral neuropathy: There are many potential etiologies common etiologies include diabetes, alcohol use, B12, thyroid disorder, It is reasonable to check a B12, TSH, and hemoglobin A1c. Patient at high risk of falling with subsequent
significant neuropathy.
HTN: amlodipine 10 qd, HCTZ 12.5 po qd, olmesartan 40 QD.Continue to hold atenolol���
Bradycardia: more pronounced at night around 30-40 Holding BB �
HLD: Atorvastatin 40mg
Atrial fibrillation/RBBB:� Continue Eliquis 5 bid, amlodipine 10 qd, HCTZ 12.5 po qd, olmesartan 40 QD, atorvastatin 40 po qd. Continue to hold atenolol�. ��Transthoracic Echo -07/07- LV ejection fraction is 55-60%
Normal left ventricular size, wall thickness and systolic function.
No regional wall motion abnormalities are seen.
LV ejection fraction is 55-60% by Katz's method of discs.
Normal right ventricular size and function.
Mild mitral regurgitation.
Trace aortic regurgitation.
Mild tricuspid regurgitation.
Estimated pulmonary artery pressure of 45 mmHg., assuming a right atrial
pressure of 3 mmHg.
Mild pulmonary hypertension.
No prior study for comparison.������������������������������
TATIANA:not compliant with CPAP:cardio recommend evaluation and treatment as an outpatient. Patient inquiring about Inspire device. Would be a referral to see ENT electively
Bilateral lower extremity edema: Consider TEDS as able. Increased fluid will cause more force requirement to move lower extremities which requires more strength and increases fatigue.
Hypokalemia:3.4 received K+
Psych: Psychology consult.� Monitor mood, adjust medications as needed.
Skin: monitor for pressure sores/rashes/lesions.
Pain: acetaminophen or oxycodone as needed.
Bowel: Colace and Senna, PRN bisacodyl.
Bladder: Time void, PVRs, PRN straight cath.
GI Prophylaxis: Pantoprazole
DVT Prophylaxis: Eliquis 5mg bid
Chronic venous stasis with ulcers: received IV lasix, wound care c/s, compression when able.
Pulmonary: Incentive spirometry
Morbid obesity: Continue to enrollment counselor patient about diet adjustments to control obesity. Body habitus and increased force to move body and extremities causes further difficulty with functional tasks. Per cardio:BMI 43 with CVA may benefit GLP1
agonist, can consider with PCP
Safety: Continue to reinforce assistance with all transfers.
Code Status:� Full code
Dispo (date/plan/equipment needs): Home with family care.� Social history reviewed.
Functional and Medical Goals: Modified Independent with ADL�s, ambulation, transfers
Summary of recommendations:
- Discharge Destination: Patient with CVA and left homonymous hemianopia at current level of Bed mobility�mod assist, transfer�mod assist, stand/pivot/sit�mod assist of 2, leans heavily on therapists, can stand with strong support of 2 people,
eating, grooming�set up, toileting�dependent, lower extremity self-care�dependent, would benefit from acute inpatient rehabilitation for PT/OT to increase independence with ADLs, improve balance, coordination, endurance, strength, mobility,
community reintegration, decreased burden of care on others and family education once medically stable.
CVA:Large area of nonhemorrhagic infarct in the medial aspect of the right temporal lobe and right occipital lobe and adjacent cytotoxic edema. Subacute/acute infarct in right thalamus
Secondary prophylaxis with aspirin, statin, and blood pressure control (SBP less than 180 and diastolic less than 100 to participate with therapy for ischemic stroke). Continue to monitor neurologic status.
Left homonymous hemianopia : makes patient at increased risk for falls.� Will need therapy to work on scanning of environment for safe navigation.
Peripheral neuropathy: There are many potential etiologies common etiologies include diabetes, alcohol use, B12, thyroid disorder, It is reasonable to check a B12, TSH, and hemoglobin A1c. Patient at high risk of falling with subsequent
significant neuropathy.
HTN: amlodipine 10 qd, HCTZ 12.5 po qd, olmesartan 40 QD.Continue to hold atenolol���
Hypokalemia:3.4 received K+. Monitor closely. repeat BMP
Pain: acetaminophen or oxycodone as needed.
Bowel: Colace and Senna, PRN bisacodyl.
Bladder: Time void, PVRs, PRN straight cath.
GI Prophylaxis: Pantoprazole
DVT Prophylaxis: Eliquis 5mg bid and mechanical
Chronic venous stasis with ulcers: Teds stocking. Continue wound care
Pulmonary: Incentive spirometry
Morbid obesity: Continue to enrollment counselor patient about diet adjustments to control obesity. Body habitus and increased force to move body and extremities causes further difficulty with functional tasks. Per cardio:BMI 43 with CVA may benefit GLP1
agonist, can consider with PCP
Thank you for allowing me to care for your patient. Please contact me with any questions or concerns.
Attending Statement:
I did not see the patient 07/09.� Reviewed plan with physician diver assistant.� I agree with the above plan as documented.
[2023-07-09] MEDS: NORVASC 10 MG PO (08:40)
[2023-07-09] MEDS: BENICAR 40 MG PO (08:40)
[2023-07-09] MEDS: VITAMIN D3 (cholecalciferol) 25 MCG PO (08:40)
[2023-07-09] MEDS: KCL 40 MEQ PO (08:40)
[2023-07-09] MEDS: VITAMIN D3 (cholecalciferol) 125 MCG PO (08:41)
[2023-07-09] MEDS: THERAGRAN 1 TABLET PO (08:41)
[2023-07-09] MEDS: ELIQUIS 5 MG PO ×2 (08:41→19:36)
[2023-07-09] MEDS: DESENEX/MITRAZOL/ZEASORB 1 APPLIC TOPICAL ×2 (08:41→19:35)
[2023-07-09] MEDS: HYDROPHOR 1 APPLIC TOPICAL (08:41)
[2023-07-09] MEDS: ORETIC 12.5 MG PO (08:41)
--- NOTE | 2023-07-09 09:01 | W.PN.HOSP.TC ---
Addendum entered and electronically signed by Idalmis Flores MD 07/09/23 12:56:
Patient was made aware about the results of the CT scan and the need for follow-up with pulmonary, repeating CT scan of the chest. He is also aware about ultrasound of the liver as outpatient rule out cirrhosis and also getting an MRI of the
adrenal gland.
Addendum entered and electronically signed by Idalmis Flores MD 07/09/23 12:54:
pulmonary edema is acute - will give a dose of lasix
Original Note:
Today's Communication/Plan
-
Chest CT
Transfer to tele
Discharge planning.
Assessment / Plan
Assessment / Plan
CVS: S1-S2 normal
Chest: CTA B/L
Abdomen: Soft, NT / Bowel sounds present
Extremities: Dry skin with flacking. Ulcers bandaged. Will take a look with WC today
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
Good 5/5 strength B/L UE and LE
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
MRI of the brain-large area of nonhemorrhagic infarct consistent with CT scan involving medial aspect of the right temporal lobe and right occipital lobe and adjacent cytotoxic edema. Possible tiny acute/subacute nonhemorrhagic infarct in the right
thalamus
Head CT-acute complete occlusion of the P2 segment of the right posterior cerebral artery with an associated large acute and ischemic infarct in the right occipital and right temporal lobes containing severe cytotoxic edema. 70% diameter stenosis
of the P2 segment of the left STRAP CUTTING MACHINE OPERATOR. 50% diameter stenosis of the distal right intracranial vertebral artery. Severe calcific atherosclerotic plaque in both the proximal intracranial vertebral arteries., Intracranial right internal carotid artery
causing 25 to 50% diameter stenosis. Patent OBINNA and STRAP CUTTING MACHINE OPERATOR
Neck CTA-complete occlusion of the proximal ICA. Less than 25% stenosis of the proximal right ICA. Greater than 70% diameter stenosis at the origin of the right vertebral artery.
Echo 07/08/2023-normal LV size, wall thickness and systolic function. Ejection fraction 55 to 60%. Mild MR, trace AI, mild TR, pulmonary artery pressure 45 mmHg, mild pulmonary hypertension
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
Patient presented with disorientation and left hemianopsia hemianopia
Eliquis started per recommendations from from neurology. Aspirin Plavix stopped
Started on Statin due to extensive atherosclerosis. LDL 46
PT/OT/speech
HGB A1c 5.6 in May 2022.
# Hypokalemia-replace
# 1 cm nodule in the anterior segment of the right upper lobe-CT chest
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
Pt aware re Spine follow up as OP
# Mild to moderate pulmonary edema. Small bilateral pleural effusions.
Received IV Lasix
#Aerococcus in the urine without symptoms. Hold off on antibiotics
# Bradycardia, more pronounced at night around 30-40
Holding BB
# Hx of sleep apnea. pt does not wear C pap as OP
Aware re sleep study
# Primary hypertension
Will continue with amlodipine and ARB
Hydrochlorothiazide also added
# New diagnosis of atrial fibrillation. No palpitations or chest pain.
Unknown duration of atrial fibrillation
Monitor on cardiac telemetry
Continue with Eliquis
[id number]
Patient saw developing machine operator in [place] years ago, he could not recall the name
Appreciate cardiology input
# Morbid obesity, BMI 43
# Chronic venous wound bilateral lower extremity
Patient does wound care at home. Both legs are swollen red, ulceration looked red erythematous with soaked gauze on some
Per patient, chronic issue for him
Consult wound care nurse
# Chronic ambulatory dysfunction. Uses cane
# Vit D Def- Replace
# History of prostate cancer
# DVT prophylaxis-Eliquis
D/W RN at bed side
(History of von Willebrand factor disease listed on the chart. But pt or daughter not aware )
D/W case management
Time spent 51 min
Anticipated Discharge: Today
Subjective/Interval History
-
Date of Service: July 09, 2023
Objective Data
-
Labs:
Laboratory Results
07/09/23
04:10
WBC 7.6
Hgb 15.4
Hct 46.4
Plt Count 200
Sodium 134 L
Potassium 3.4 L
Chloride 100
Carbon Dioxide 25
BUN 16
Creatinine 0.7
Glucose 91
Calcium 9.0
Vital Signs:
Vital Signs
Temp Pulse Resp BP Pulse Ox
97.8 F 74 24 143/101 93
07/09/23 04:16 07/09/23 08:40 07/09/23 06:13 07/09/23 08:40 07/09/23 06:13
I&O
07/08/23 07/09/23 07/10/23
06:59 06:59 06:59
Intake Total 655 / 655 480 / 480
Output Total 2470 / 2470 1600 / 1600
Balance -1815 / -1815 -1120 / -1120
--- NOTE | 2023-07-09 09:06 | CM ---
Addendum entered by Nighat Mike 07/09/23 16:08:
Discussion with Dr Flores- ready for
Outreach to [facility] and pt accepted for admission tomorrow
Per cardio, plan for Pradaxa on dc
Bedside meeting with pt
[place] to dtr per his request- educated on Good Rx
She will assist pt with coupon
Coupon placed in dc folder
Discharge Disposition- [place] tomorrow
Original Note:
CM consult for med pricing
Update to cardio/Gisele Bob
Pradaxa 150mg BID- no coverge per amb orders
Local [facility]- +$600/monthly for brand, $165.19 for generic/Dabigatrin
[facility]- approx $70 generic, [facility]- approx $103 generic
--- NOTE | 2023-07-09 10:39 | PTCARENOTE ---
Assumed care of pt from night RN, pt AAOx3, makes needs known. NIH = 1 this morning, L hemiopia noted. Pt went for CT of chest, results pending at this time. CC#25 dislodged during transport, replaced and functioning, draining clear yellow urine at
this time. Will continue to monitor through shift.
--- NOTE | 2023-07-09 12:08 | PN.CDI ---
CDI
- -
CDI:
Physician Documentation Request
Admit Date: 07/06/23 14:43
Dear Doctor Sandra,
Please review the following and provide your response in the progress notes.
Clinical Indicators:
Pt admitted with CVA
Documented per progress note 07/08,' Mild to moderate pulmonary edema. Small bilateral pleural effusions. Received IV Lasix...'
CXR 07/06,' MILD to MODERATE ACUTE INTERSTITIAL and ALVEOLAR CARDIOGENIC PULMONARY EDEMA...'
Per MAR did get IV Lasix 20 MG and 40 mg on 07/06
Clarify which of the following accurately represents the acuity of the ( Pulmonary edema ).
Acute
Acute on Chronic
Other
Use of terms such as suspected, likely, concern for, or probable (associated with a specific diagnosis that is being evaluated, monitored, or treated as if it exists) are acceptable and can be coded in the inpatient setting, when documented at the
time of discharge.
Thank you,
Mar Argueta RN
CDI Specialist
[employer] [facility]
Please use your independent medical judgment in providing your response.
[2023-07-09] MEDS: LASIX 20 MG PO (13:06)
--- NOTE | 2023-07-09 16:20 | PTCARENOTE ---
Patient transferred from IMU into room 412-02. Vital signs stable. Tele maintained. Patient in Afib which has not changed since admission. Oriented to room, use of call vivas, television and bed controls. Patient verbalizes understanding of teaching.
Denies complaints at this time. Patient using call vivas appropriately.
--- NOTE | 2023-07-09 16:55 | PTCARENOTE ---
NIH on transfer 1 for visual field on left - partial hemianopia. No changes from IMU NIH today.
[2023-07-09] MEDS: LIPITOR 40 MG PO (17:29)
[2023-07-09] MEDS: KCL 20 MEQ PO (21:58)
[2023-07-10 03:51] VITALS: BP 147/82
[2023-07-10 06:00] VITALS: BMI 42.5
[2023-07-10 07:30] VITALS: BP 146/82
[2023-07-10 09:16] LABS: Blood Urea Nitrogen 18 mg/dl (9-20); Calcium 9.5 mg/dl (8.4-10.2); Carbon Dioxide 30 mmol/L (22-30); Chloride 95 mmol/L (98-107); Estimated Creatinine Clearance 97 ml/min; Glucose 96 mg/dl (70-99); Potassium 3.7 mmol/L (3.5-5.1); Sodium 134 mmol/L (135-145); eGFR > 60.00
[2023-07-10] MEDS: BENICAR 40 MG PO (09:35)
[2023-07-10] MEDS: NORVASC 10 MG PO (09:36)
[2023-07-10] MEDS: ELIQUIS 5 MG PO (09:36)
[2023-07-10] MEDS: VITAMIN D3 (cholecalciferol) 125 MCG PO (09:36)
[2023-07-10] MEDS: THERAGRAN 1 TABLET PO (09:36)
[2023-07-10] MEDS: ORETIC 12.5 MG PO (09:36)
[2023-07-10] MEDS: HYDROPHOR 1 APPLIC TOPICAL (09:38)
[2023-07-10] MEDS: DESENEX/MITRAZOL/ZEASORB 1 APPLIC TOPICAL (09:42)
[2023-07-10 11:00] VITALS: BP 137/71
--- NOTE | 2023-07-10 11:13 | W.PN.HOSP.TC ---
Addendum entered and electronically signed by Idalmis Flores MD 07/10/23 12:24:
Ct noted.
No new changes.
Reviewed with neurology. Okay for discharge. This is likely neuropathy
I also reviewed with daughter that patient has cervical DJD
Reviewed with the daughter regarding lung nodules, liver finding, adrenal nodule and need for follow-up as outpatient
Also discussed about sleep study to be done as outpatient
Discharge time 40 minutes.
Original Note:
Today's Communication/Plan
-
Await neurology follow-up
Await head CT
[facility]
discharge plan according to above
Assessment / Plan
Assessment / Plan
CVS: S1-S2 normal
Chest: CTA B/L
Abdomen: Soft, NT / Bowel sounds present
Extremities: Dry skin with flacking. Ulcers bandaged. Will take a look with WC today
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
Good 5/5 strength B/L UE and LE
Subjective numbness in the feet which is not new for him. But states that he also feels some ajkm-kdp-eeqjiik/tightness in the toes.
Good hand grasp. Patient has some wtny-ijj-uaysdjp at the tips of his fingers
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
MRI of the brain-large area of nonhemorrhagic infarct consistent with CT scan involving medial aspect of the right temporal lobe and right occipital lobe and adjacent cytotoxic edema. Possible tiny acute/subacute nonhemorrhagic infarct in the right
thalamus
Head CT-acute complete occlusion of the P2 segment of the right posterior cerebral artery with an associated large acute and ischemic infarct in the right occipital and right temporal lobes containing severe cytotoxic edema. 70% diameter stenosis
of the P2 segment of the left AIR CONDITIONING UNIT TESTER. 50% diameter stenosis of the distal right intracranial vertebral artery. Severe calcific atherosclerotic plaque in both the proximal intracranial vertebral arteries., Intracranial right internal carotid artery
causing 25 to 50% diameter stenosis. Patent OBINNA and AIR CONDITIONING UNIT TESTER
Neck CTA-complete occlusion of the proximal ICA. Less than 25% stenosis of the proximal right ICA. Greater than 70% diameter stenosis at the origin of the right vertebral artery.
Echo 07/08/2023-normal LV size, wall thickness and systolic function. Ejection fraction 55 to 60%. Mild MR, trace AI, mild TR, pulmonary artery pressure 45 mmHg, mild pulmonary hypertension
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
Patient presented with disorientation and left hemianopsia hemianopia
Eliquis started per recommendations from from neurology. Aspirin Plavix stopped
Started on Statin due to extensive atherosclerosis. LDL 46
PT/OT/speech
HGB A1c 5.6 in May 2022.
Current symptoms are unlikely related to stroke
CT of the head ordered as patient is on anticoagulation and new on it.
Neurology is aware and evaluated the patient
Patient does have severe multilevel discogenic DJD in the cervical spine could be the reason for his symptoms.
Head CT reviewed by me-no acute changes noted official reading is pending
# Hypokalemia-replaced
# pulmonary nodules -CT chest noted and discussed with the patient
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
Pt aware re Spine follow up as OP
# Mild to moderate acute pulmonary edema. Small bilateral pleural effusions.
Received Lasix
#Aerococcus in the urine without symptoms. Hold off on antibiotics
# Bradycardia, more pronounced at night around 30-40
Holding BB
# Hx of sleep apnea. pt does not wear C pap as OP
Aware re sleep study
# Primary hypertension
Will continue with amlodipine and ARB
Hydrochlorothiazide also added
# Nodular contour of liver-patient aware about ultrasound of the outpatient
# Adrenal nodule-MRI/CT of the adrenal glands as outpatient
# New diagnosis of atrial fibrillation. No palpitations or chest pain.
Unknown duration of atrial fibrillation
Monitor on cardiac telemetry
Continue with Eliquis
[id number]
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
Appreciate cardiology input
# Morbid obesity, BMI 43
# Chronic venous wound bilateral lower extremity
Patient does wound care at home. Both legs are swollen red, ulceration looked red erythematous with soaked gauze on some
Per patient, chronic issue for him
Wound care, compression bandage
# Chronic ambulatory dysfunction. Uses cane
# Vit D Def- Replace
# History of prostate cancer
# DVT prophylaxis-Eliquis
D/W RN at bed side
(History of von Willebrand factor disease listed on the chart. But pt or daughter not aware )
D/W case management
Discussed with neurology
Anticipated Discharge: Within 24 hours
Subjective/Interval History
-
Date of Service: July 10, 2023
Objective Data
-
Labs:
Laboratory Results
07/10/23
08:08
Sodium 134 L
Potassium 3.7
Chloride 95 L
Carbon Dioxide 30
BUN 18
Creatinine 0.8
Glucose 96
Calcium 9.5
Vital Signs:
Vital Signs
Temp Pulse Resp BP Pulse Ox
98.1 F 70 18 146/82 95
07/10/23 07:30 07/10/23 09:36 07/10/23 07:30 07/10/23 09:36 07/10/23 07:30
I&O
07/09/23 07/10/23 07/11/23
06:59 06:59 06:59
Intake Total 480 / 480 720 / 720
Output Total 1600 / 1600 3325 / 3325
Balance -1120 / -1120 -2605 / -2605
--- NOTE | 2023-07-10 12:21 | W.PN.NEURO.1 ---
Today's Communication / Plan
-
-Continue Apixaban for anticoagulation
-Numbness today is due to chronic peripheral neuropathy
-Understands cannot drive with the left sided homonymous hemianopia
-Goal normotension
-Neurologic checks
-Okay [facility]
-Neurology follow up 4-6 weeks outpatient
Neuro Assessment/Plan
Assessment
IMPRESSIONS/RECOMMENDATIONS:
Abrupt change in mentation with left-homonymous hemianopsia
Most likely due to large visualized right occipital parietal ischemic lesion (seen on CT of head, and MRI of brain)
Patient subsequently found to have fibrillation which is etiology of stroke
Subjective/Objective
Subjective Data
Date of Service: July 10, 2023
Numbness in hand and feet bilaterally, no headache or vision changes
Objective Data
Vital Signs
Temp Pulse Resp BP Pulse Ox
98.1 F 70 18 146/82 95
07/10/23 07:30 07/10/23 09:36 07/10/23 07:30 07/10/23 09:36 07/10/23 07:30
Lab Results
07/09/23 04:10
07/10/23 08:08
APTT Cancelled 07/06/23 19:30
Sodium 134 mmol/L (135-145) L 07/10/23 08:08
Potassium 3.7 mmol/L (3.5-5.1) 07/10/23 08:08
BUN 18 mg/dl (9-20) 07/10/23 08:08
Glucose 96 mg/dl (70-99) 07/10/23 08:08
Calcium 9.5 mg/dl (8.4-10.2) 07/10/23 08:08
Die-P-Jangsqosoit Pept 592 pg/ml 07/07/23 04:45
LDL Cholesterol, Calc 46 mg/dl 07/07/23 04:45
Vitamin B12 656 pg/ml (382-245) 07/08/23 04:36
Patient Allergies
No Known Allergies Allergy (Unverified 07/06/23 10:37)
Review of Systems
-
History Source: Patient
All other systems: Reviewed and negative
Constitutional: No Symptoms
EENT: No Symptoms Reported
Respiratory: No Symptoms
Cardiac: No Symptoms
Abdomen/GI: No Symptoms
Genitourinary: No Symptoms
Musculoskeletal: No Symptoms
Skin: No Symptoms
Neuro: Numbness
Endocrine: No Symptoms
Hematologic / Lymphatic: No Symptoms
Allergy / Immunology: No Symptoms
Physical Exam
-
General: Obese
Eyes: No Ptosis
HEENT: Normocephalic
Neck: No Bruits Bilaterally
Respiratory: Clear to Auscultation
Cardiac: Regular Rhythm
GI: Normal Bowel Sounds
Skin: Unremarkable
Extremities: No Clubbing
Psych: Unremarkable
Extended Neurological Exam
Attention Span & Concentration: Awake, Alert and Interactive
Memory: Unremarkable
Tremor: Hand Tremor Absent
Involuntary Movement: None
Speech: Quality Unremarkable and Quantity Unremarkable; Negative Expressive Aphasia, Receptive Aphasia or Dysarthric
Cranial Nerve II: Left Eye: Pupillary Reactivity Unremarkable, Pupillary Size Unremarkable and Other (Left sided homonymous hemianopia)
Cranial Nerve II: Right Eye: Pupillary Reactivity Unremarkable, Pupillary Size Unremarkable and Other (Left sided homonymous hemianopia)
Muscle Strength, Overall: Full Throughout
Pronator Drift: No Drift in Upper Extremities
Deep Tendon Reflexes: Absent Throughout
Vibration Sensation: Reduced Mildly Distally
Touch Sensation: Pin Prick Reduced
Coordination: Zegulx-tyjy-ilgbeb Testing Unremarkable
Data Reviewed
-
CT Head: Report Reviewed and Image Reviewed
MRI Head: Report Reviewed and Image Reviewed
Labs: Report Reviewed
--- NOTE | 2023-07-10 12:24 | W.DS.TRANS ---
Addendum entered and electronically signed by Idalmis Flores MD 07/10/23 16:54:
Dictation- [id number]
Original Note:
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
-
Discharge Instructions:
Discharge Diagnosis/Procedures Acute left occipital and temporal lobe stroke,
hypokalemia, coronary artery calcification,
severe discogenic DJD cervical spine, sleep
apnea, hypertension, atrial fibrillation,
obesity, chronic venous stasis bilateral lower
extremity, ambulatory dysfunction, vitamin D
deficiency, history of prostate cancer,
atherosclerosis
Diet Low Cholesterol
Activity As tolerated,With assistance
Driving Restrictions Not until seen by your Dr
Other Services PT,OT
Instructions:
Stand-Alone Forms:
Changes to Home Medications: Yes
Discharge Medications:
DC Medications w/original date entered in [employer]
amlodipine 10 mg tablet 10 mg PO DAILY Blood Pressure 07/06/23
cholecalciferol (vitamin D3) 125 mcg (5,000 unit) tablet (Vitamin D3) 125 mcg PO DAILY Supplement 07/06/23
olmesartan 40 mg tablet 40 mg PO DAILY Blood Pressure 07/06/23
therapeutic multivitamin 1 tab PO DAILY Supplement 07/06/23
apixaban 5 mg tablet (Eliquis) 5 mg PO BID Blood clot prevention/tx #60 tabs 07/08/23
acetaminophen 500 mg tablet 1,000 mg (2 x 500 mg) PO BID PRN mild pain #0 tabs 07/09/23
atorvastatin 40 mg tablet 40 mg PO QPM High cholesterol #30 tabs 07/09/23
hydrochlorothiazide 12.5 mg tablet 12.5 mg PO DAILY Blood pressure #0 tabs 07/09/23
Home Medication Changes
new
olmesartan 40 mg tablet 40 mg PO DAILY Blood Pressure 07/06/23
apixaban 5 mg tablet (Eliquis) 5 mg PO BID Blood clot prevention/tx #60 tabs 07/08/23
acetaminophen 500 mg tablet 1,000 mg (2 x 500 mg) PO BID PRN mild pain #0 tabs 07/09/23
atorvastatin 40 mg tablet 40 mg PO QPM High cholesterol #30 tabs 07/09/23
hydrochlorothiazide 12.5 mg tablet 12.5 mg PO DAILY Blood pressure #0 tabs 07/09/23
Pending Results: No
--- NOTE | 2023-07-10 13:04 | PTCARENOTE ---
[facility]. Peripheral IV removed. Tele removed.
--- NOTE | 2023-07-10 13:58 | CM ---
Patient to transfer to [facility] today
[facility] Report [phone]
--- NOTE | 2023-07-10 14:11 | PTCARENOTE ---
Patient with complaints of numbness in all fingers on both hands and both feet. MD made aware. CT of head done with no changes. MD aware. Patient will go to [place] today as planned previously.
--- NOTE | 2023-07-15 13:59 | OID.L.PAT ---
Pulmonary Nodule Pat Letter
- -
07/15/23
MUNIR FARMER
[facility]
[address]
[place], [place] [address]
Deayolette AMARAL,
A pulmonary nodule was seen on an imaging study done by [facility]. This was reviewed by the [facility] Pulmonary Nodule Advisory Board and the following recommendation was made:
Recommendation: CT of the Chest in 6-12 months
If you have any questions, please do not hesitate to contact your primary care physician. If you are in need of a Physician, you can go to [email or web address] and click on 'Find a Provider'. Type 'Family Medicine' in the search.
Oncology Nurse Navigator
[facility]
[phone]
--- NOTE | 2023-07-15 14:01 | OID.L.REC ---
Pulmonary Nodule Follow Up
- Recommendation
07/15/23
Pulmonary Nodule Review Recommendations
Your patient, MUNIR FARMER, had a pulmonary nodule on an imaging study done 07/09/2023 in the [facility]iology Department.
This was reviewed by the [facility] Pulmonary Nodule Advisory Board and the following recommendation was made:
Recommendation: CT of the Chest in 6-12 months
If you have any questions please do not hesitate to contact us.
Sincerely,
Oncology Nurse Navigator
[facility]
[phone]
== END 2023-07-10 13:38 | DRG 64 ==
LOC: 4 EAST ACU 14:43
PROVIDERS: Physician Assistant; ADMITTING PHYSICIAN Internal Medicine; ATTENDING PHYSICIAN Hospitalist; CONSULT PHYSICIAN Internal Medicine Cardiovascular Disease; CONSULT PHYSICIAN Physical Medicine & Rehabilitation; CONSULT PHYSICIAN Psychiatry & Neurology Neurology; EMERGENCY PHYSICIAN Emergency Medicine; FAMILY PHYSICIAN Student in an Organized Health Care Education/Training Program
DX: I63.532 Cerebral infarction due to unspecified occlusion or stenosis of left posterior cerebral artery (principal); G93.6 Cerebral edema; J81.0 Acute pulmonary edema; I50.1 Left ventricular failure, unspecified; Z68.41 Body mass index [BMI] 40.0-44.9, adult; M47.12 Other spondylosis with myelopathy, cervical region; J98.11 Atelectasis; J90 Pleural effusion, not elsewhere classified; I11.0 Hypertensive heart disease with heart failure; I48.91 Unspecified atrial fibrillation; E66.01 Morbid (severe) obesity due to excess calories; I45.10 Unspecified right bundle-branch block; E78.00 Pure hypercholesterolemia, unspecified; E78.1 Pure hyperglyceridemia; I65.22 Occlusion and stenosis of left carotid artery; M25.78 Osteophyte, vertebrae; I27.20 Pulmonary hypertension, unspecified; G47.33 Obstructive sleep apnea (adult) (pediatric); I87.8 Other specified disorders of veins; E87.6 Hypokalemia; E55.9 Vitamin D deficiency, unspecified; I25.10 Atherosclerotic heart disease of native coronary artery without angina pectoris
CPT/HCPCS: 70450; 70496; 70498; 70551; 71045; 71260; 80048; 80053; 80061; 81003; 81015; 82306; 82607; 83880; 85025; 85027; 85730; 86803; 87077; 87086; 92523; 92610; 93005; 93306; 94660; 96365; 97163; 97167; 97530; 97535; 99285; Q9967

== ENCOUNTER 2023-07-11 13:52 | Emergency (ER) | payer MEDICARE, SELFPAY ==
[2023-07-11 14:05] VITALS: BP 117/73
[2023-07-11 14:33] LABS: % Basophils 0.9 % (0-2); % Immature Granulocytes 0.4 % (0-0.5); % Lymphocytes 13.5 % (20.5-51.1); % Monocytes 9.1 % (1.7-9.3); % Neutrophils 72.1 % (42.2-75.2); Absolute Basophils 0.1 10^3/uL (0-0.2); Absolute Eosinophils 0.4 10^3/uL (0-0.7); Absolute Lymphocytes 1.4 10^3/uL (1.2-3.4); Absolute Monocytes 0.9 10^3/uL (0.1-0.6); Absolute Neutrophils 7.4 10^3/uL (1.4-6.5); Hematocrit 53.6 % (39.0-52.0); Hemoglobin 17.4 g/dL (13.0-18.0); Mean Corp Hgb Conc. 32.5 g/dL (33.0-37.0); Mean Corpuscular Hgb 29.3 pg (27.0-31.0); Mean Corpuscular Volume 90.2 fL (80.0-94.0); Mean Platelet Volume 10.6 fL (7.4-10.4); Nucleated Red Blood Cells % 0 % (-); Platelet Count 207 10^3/uL (130-400); Red Blood Cell Count 5.94 10^6/uL (4.70-6.10); Red Cell Dist. Width 13.1 % (11.5-14.5); White Blood Cell Count 10.3 10^3/uL (4.8-10.8)
[2023-07-11 14:43] LABS: ALT (SGPT) 23 U/L (0-50); AST (SGOT) 35 U/L (17-59); Alkaline Phosphatase 116 U/L (38-126); Blood Urea Nitrogen 23 mg/dl (9-20); Calcium 10.3 mg/dl (8.4-10.2); Carbon Dioxide 31 mmol/L (22-30); Chloride 93 mmol/L (98-107); Glucose 122 mg/dl (70-99); Potassium 3.6 mmol/L (3.5-5.1); Sodium 134 mmol/L (135-145); Total Protein 7.6 g/dl (6.3-8.2); eGFR > 60.00
--- NOTE | 2023-07-11 16:34 | ED.GENMED ---
History of Present Illness
<TIMI Gama - Last Filed: 07/12/23 00:04>
General
Chief Complaint: Rectal Bleeding
Source: patient
Time Seen by Provider: 07/11/23 16:21
Nursing documentation reviewed up to this point in time: agreed with
Travel History
Have you had any contact with someone who has COVID-19?: No
Do you have any symptoms of coronavirus? Fever > 100 degrees, chills, cough, shortness of breath, sore throat, loss of taste or smell, muscle aches, or headache?: No
History of Present Illness
History of Present Illness:
77-year-old male sent from [facility] for rectal bleed. Patient was recently admitted to [facility] yesterday for rehab for recent stroke. 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
artery) . He was found to be in A-fib at that time and was started on and is still taking Eliquis 5 mg twice daily. Patient reports when he moved his bowels this morning the nurse noticed blood in his stool. He did not see his stool. He reports
he has had bright red blood in his stool in the past and thought it was hemorrhoids. He denies any lightheadedness weakness. He denies any abdominal pain.
Past History
<TIMI Gama - Last Filed: 07/12/23 00:04>
Past History
ED Past Medical History: Cancer (Prostate), HTN, NIDDM, Other (Vitamin D deficiency, gait dysfunction, hypertriglyceridemia, torn right biceps, morbid obesity) and Other (wounds on bilateral legs)
ED Past Surgical History: Orthopedic (Left knee replacement 2013, rotator cuff tear repair 2016, carpal tunnel release 2011) and Other (Herniorrhaphy)
Review of Systems
<TIMI Gama - Last Filed: 07/12/23 00:04>
Review of Systems
Allergies reviewed?: Yes
All Other Systems: ROS reviewed and negative except as documented in HPI and ROS
Constitutional: Reports no symptoms; Denies fever, fatigue or chills
Respiratory: Reports no symptoms
Cardiac: Reports no symptoms
ABD/GI: Reports other (bright red rectal blood mixed with stool ); Denies abdominal pain
: Reports no symptoms
Musculoskeletal: Reports no symptoms
Skin: Reports no symptoms
Neurological: Reports no symptoms
Psychiatric: Reports no symptoms
Phy Exam
<TIMI Gama - Last Filed: 07/12/23 00:04>
General Physical Exam
General Presentation: no apparent distress
General age: appears stated age
General Skin: warm and dry
General Habitus: normal
General Mental: alert
General Hydration: appears well hydrated
Cardiovascular Exam
Cardiovascular Exam: irregularly irregular
Pulmonary Exam
Pulmonary Exam: lungs clear and no respiratory distress
Gastrointestinal Exam
Gastrointestinal Exam: non tender, soft and other (No stool on exam small and of bright red blood during rectal exam small external hemorrhoid)
Neurological Exam
Neurological Exam: alert and oriented x3
Musculoskeletal Exam
Musculoskeletal Exam: full ROM
Skin Exam
Skin Exam: normal color and warm/dry
Psychiatric Exam
Psychiatric Exam: normal mood/affect
Course
<TIMI Gama - Last Filed: 07/12/23 00:04>
Orders/Labs/Results
Orders:
Orders
07/11/23 14:20
Type+Screen Urgent
Complete Blood Count/With Diff Urgent
Comprehensive Metabolic Panel Urgent
Abnormal Lab Results
07/11/23
14:20
Hct 53.6 H %
(39.0-52.0)
MCHC 32.5 L g/dL
(33.0-37.0)
MPV 10.6 H fL
(7.4-10.4)
Absolute Neuts (auto) 7.4 H 10^3/uL
(1.4-6.5)
Absolute Monos (auto) 0.9 H 10^3/uL
(0.1-0.6)
Lymphocytes % 13.5 L %
(20.5-51.1)
Sodium 134 L mmol/L
(135-145)
Chloride 93 L mmol/L
(98-107)
Carbon Dioxide 31 H mmol/L
(22-30)
BUN 23 H mg/dl
(9-20)
Glucose 122 H mg/dl
(70-99)
Calcium 10.3 H mg/dl
(8.4-10.2)
07/11/23 14:20
07/11/23 14:20
Vital Signs
Initial and Last Documented VS:
Initial Vital Signs
Temp Pulse Resp BP Pulse Ox
99.1 F 60 18 117/73 94
07/11/23 14:05 07/11/23 14:05 07/11/23 14:05 07/11/23 14:05 07/11/23 14:05
Last Documented Vital Signs
Temp Pulse Resp BP Pulse Ox
99.1 F 85 22 136/70 97
07/11/23 14:05 07/11/23 17:30 07/11/23 17:30 07/11/23 17:00 07/11/23 17:30
Mortgage Advisor consulted with Physician
Mortgage Advisor consulted with physician?: Yes
Name of Physician Consulted: monie
<Trell Clancy, DO - Last Filed: 07/11/23 16:40>
Orders/Labs/Results
Orders:
Orders
07/11/23 14:20
Type+Screen Urgent
Complete Blood Count/With Diff Urgent
Comprehensive Metabolic Panel Urgent
Abnormal Lab Results
07/11/23
14:20
Hct 53.6 H %
(39.0-52.0)
MCHC 32.5 L g/dL
(33.0-37.0)
MPV 10.6 H fL
(7.4-10.4)
Absolute Neuts (auto) 7.4 H 10^3/uL
(1.4-6.5)
Absolute Monos (auto) 0.9 H 10^3/uL
(0.1-0.6)
Lymphocytes % 13.5 L %
(20.5-51.1)
Sodium 134 L mmol/L
(135-145)
Chloride 93 L mmol/L
(98-107)
Carbon Dioxide 31 H mmol/L
(22-30)
BUN 23 H mg/dl
(9-20)
Glucose 122 H mg/dl
(70-99)
Calcium 10.3 H mg/dl
(8.4-10.2)
07/11/23 14:20
07/11/23 14:20
Vital Signs
Initial and Last Documented VS:
Initial Vital Signs
Temp Pulse Resp BP Pulse Ox
99.1 F 60 18 117/73 94
07/11/23 14:05 07/11/23 14:05 07/11/23 14:05 07/11/23 14:05 07/11/23 14:05
Last Documented Vital Signs
Temp Pulse Resp BP Pulse Ox
99.1 F 85 22 136/70 97
07/11/23 14:05 07/11/23 17:30 07/11/23 17:30 07/11/23 17:00 07/11/23 17:30
<TIMI Gama - Last Filed: 07/12/23 00:04>
MDM/Problems Addressed
Differential Diagnosis Includes:
Not limited to rectal bleeding anemia hemorrhoids
MDM/Problems Addressed:
Patient is a 77-year-old male who was sent from [facility] for episode of bright red blood in patient's stool. He had recent CVA and was admitted to [facility] yesterday. Patient was admitted July 04 here at [facility] found to be in A-fib and had a
CVA was started on Eliquis. Patient denies any lightheaded dizziness. He reports in his history he has intermittent episodes of bright red bleeding and he thought that was his hemorrhoids. On exam he has small external hemorrhoids he does have
some bright red blood on rectal exam but no active bleeding likely hemorrhoidal. Patient has a stable hemoglobin 17.4 hematocrit 53.6.
Patient denies any fever chills he is afebrile normal white count, BUN mildly elevated 23 creatinine 0.9.
Pt stable for d/c back to [facility] with close monitoring. I spoke with DR. Bill Holley Why aware and will follow.
<TIMI Gama - Last Filed: 07/12/23 00:04>
*Pulse Oximetry
Patient hypoxic: no
*Critical Care Note
Total Time (30-74mins, 75-104mins- exclusive of procedures): Not Applicable
ED Attending Note
<TIMI Gama - Last Filed: 07/12/23 00:04>
-
Portions of this chart may have been created with voice recognition software.� Occasional wrong word or��sound alike� substitutions may have occurred due to the inherent limitations of voice recognition software.
<Trell Clancy DO - Last Filed: 07/11/23 16:40>
ED Attending Note
Patient seen and examined by attending physician: Yes
I performed the substantive portion of visit, reviewed & personally made and approve the management plan that is documented in note by myself or FRANCIE.: Yes
ED Attending Note:
I have seen and evaluated the patient with a [id number] encounter. I have spoken to the advance practicer provider and involved in the medical history, the physical exam, medical decision making.
Evaluation and management service: agree unless noted differently below.
Results interpretation: agree unless noted differently below.
Focused HPI: 77-year-old male presenting from rehab for bright red blood per rectum. Patient is currently on Eliquis. He had a recent admission for stroke was found to be in A-fib
Physical exam: Sitting in bed comfortably. He has stasis to both legs. Abdomen soft nontender
Medical Decision Making: Exam. There is external hemorrhoid. There is bright red blood per rectum. Apparently this has happened before and likely related to hemorrhoid.
Discharge Plan
Departure
Patient Disposition: Alf/SNF
Date of Disposition: 07/11/23
Time of Disposition: 17:24
Patient with high blood pressure during this ER visit?: Yes
Condition: Fair
Covid-19: Not Applicable
Discharge Problem:
Bright red rectal bleeding
Instructions: Gastrointestinal Bleeding (DC)
Prescriptions:
No Action
therapeutic multivitamin Tablet
1 tab PO DAILY
amlodipine 10 mg tablet
10 mg PO DAILY
olmesartan 40 mg tablet
40 mg PO DAILY
cholecalciferol (vitamin D3) [Vitamin D3] 125 mcg (5,000 unit) Tablet
125 mcg PO DAILY
Eliquis 5 mg tablet
5 mg PO BID Qty: 60 0RF
atorvastatin 40 mg Tablet
40 mg PO QPM Qty: 30 0RF
hydrochlorothiazide 12.5 mg Tablet
12.5 mg PO DAILY Qty: 0 0RF
sennosides [senna] 8.6 mg Tablet
17.2 mg PO NOON
miconazole nitrate [Desenex] 2 % Powder
1 applic TOPICAL BID
ascorbic acid (vitamin C) [Vitamin C] 500 mg Tablet
500 mg PO DAILY
bisacodyl [Dulcolax (bisacodyl)] 10 mg Suppository
10 mg NE HSPRN PRN (Reason: if no bm aftr suppository)
docusate sodium [Colace] 100 mg Capsule
100 mg PO BID
bisacodyl [Dulcolax (bisacodyl)] 5 mg Tablet,Delayed Release (Dr/Ec)
10 mg PO DAILYPRN PRN (Reason: constipation)
melatonin 10 mg Tablet
10 mg PO HS
acetaminophen 500 mg tablet
1,000 mg PO BIDPRN PRN (Reason: mild pain)
Activity Restrictions/Additional Instructions:
Patient's hemoglobin is stable here in the ER. Patient has small amount of bright red blood on rectal exam small external hemorrhoids likely from hemorrhoids. Patient will need to be closely monitored with repeat hemoglobins. Return if any
worsening of symptoms.
Interventions
Interventions:
*Risk Screen - Suicide Last Done: 07/11/23 14:05
*General Assessment Last Done: 07/11/23 14:05
*Neglect/Abuse Screening Last Done: 07/11/23 14:05
ED- Fall Risk Assessment Last Done: 07/11/23 17:56
*ED COVID-19 Vaccine History Last Done: 07/11/23 17:56
*Nursing Disposition Last Done: 07/11/23 17:56
YJ-Lkbogz-Fzyrivjtmw Assessment Last Done: 07/11/23 16:52
ED- Cardiac Assessment Last Done: 07/11/23 16:52
ED- Pulmonary Assessment Last Done: 07/11/23 16:52
Discharge Date and Time
Discharge Date/Time: 07/11/23 17:57
Print Language: SLOVENIAN
[2023-07-11 17:00] VITALS: BP 136/70
== END 2023-07-11 17:57 ==
LOC: EMR 13:52
PROVIDERS: EMERGENCY PHYSICIAN Student in an Organized Health Care Education/Training Program; FAMILY PHYSICIAN Student in an Organized Health Care Education/Training Program
DX: K62.5 Hemorrhage of anus and rectum (principal); K64.4 Residual hemorrhoidal skin tags; I10 Essential (primary) hypertension; Z79.01 Long term (current) use of anticoagulants
CPT/HCPCS: 99283; 80053; 85025; 86850; 86900; 86901

== ENCOUNTER → 2023-11-12 08:11 | Outpatient (REF) | payer MEDICARE, BC, SELFPAY | LOC: WOUND 08:11 | PROVIDERS: ATTENDING PHYSICIAN Surgery | DX: I87.313 Chronic venous hypertension (idiopathic) with ulcer of bilateral lower extremity (principal); L97.812 Non-pressure chronic ulcer of other part of right lower leg with fat layer exposed; L97.822 Non-pressure chronic ulcer of other part of left lower leg with fat layer exposed; L97.212 Non-pressure chronic ulcer of right calf with fat layer exposed; L97.222 Non-pressure chronic ulcer of left calf with fat layer exposed; L97.322 Non-pressure chronic ulcer of left ankle with fat layer exposed; L97.512 Non-pressure chronic ulcer of other part of right foot with fat layer exposed; I87.2 Venous insufficiency (chronic) (peripheral); Z79.01 Long term (current) use of anticoagulants; R26.2 Difficulty in walking, not elsewhere classified; Z86.73 Personal history of transient ischemic attack (TIA), and cerebral infarction without residual deficits | CPT/HCPCS: 29581; 99204 ==

== ENCOUNTER → 2023-11-19 13:37 | Outpatient (REF) | payer MEDICARE, BC, SELFPAY | LOC: WOUND 13:37 | PROVIDERS: ATTENDING PHYSICIAN Surgery; FAMILY PHYSICIAN Hospitalist | DX: I87.313 Chronic venous hypertension (idiopathic) with ulcer of bilateral lower extremity (principal); L97.812 Non-pressure chronic ulcer of other part of right lower leg with fat layer exposed; L97.822 Non-pressure chronic ulcer of other part of left lower leg with fat layer exposed; L97.212 Non-pressure chronic ulcer of right calf with fat layer exposed; L97.222 Non-pressure chronic ulcer of left calf with fat layer exposed; L97.512 Non-pressure chronic ulcer of other part of right foot with fat layer exposed; I87.2 Venous insufficiency (chronic) (peripheral); R26.2 Difficulty in walking, not elsewhere classified; Z79.01 Long term (current) use of anticoagulants; Z86.73 Personal history of transient ischemic attack (TIA), and cerebral infarction without residual deficits | CPT/HCPCS: 29581; 99212 ==

== ENCOUNTER → 2023-11-26 14:42 | Outpatient (REF) | payer MEDICARE, BC, SELFPAY | LOC: WOUND 14:42 | PROVIDERS: ATTENDING PHYSICIAN Surgery; FAMILY PHYSICIAN Hospitalist | DX: I87.313 Chronic venous hypertension (idiopathic) with ulcer of bilateral lower extremity (principal); L97.812 Non-pressure chronic ulcer of other part of right lower leg with fat layer exposed; L97.822 Non-pressure chronic ulcer of other part of left lower leg with fat layer exposed; L97.212 Non-pressure chronic ulcer of right calf with fat layer exposed; L97.222 Non-pressure chronic ulcer of left calf with fat layer exposed; L97.322 Non-pressure chronic ulcer of left ankle with fat layer exposed; L97.512 Non-pressure chronic ulcer of other part of right foot with fat layer exposed; I87.2 Venous insufficiency (chronic) (peripheral); Z79.01 Long term (current) use of anticoagulants; R26.2 Difficulty in walking, not elsewhere classified; Z86.73 Personal history of transient ischemic attack (TIA), and cerebral infarction without residual deficits | CPT/HCPCS: 29581; 99213 ==

== ENCOUNTER 2023-11-27 15:14 | Inpatient (IN) | payer MEDICARE, SELFPAY ==
[2023-11-27] VITALS (11 sets, daily range): BP systolic 130–173; BP diastolic 56–117; BMI 39.6; BMI 40.2
[2023-11-27 12:46] LABS: Glucose - Point of Care 144 mg/dl (70-99)
--- NOTE | 2023-11-27 13:12 | ED.GENMED ---
History of Present Illness
General
Chief Complaint: Change in Mental Status
Source: patient, ambulance crew and jail
Exam Limitations: altered mental status
Time Seen by Provider: 11/27/23 12:46
Nursing documentation reviewed up to this point in time: agreed with
History of Present Illness
History of Present Illness:
Patient with history atrial fibrillation on Eliquis, status post CVA in July 2023, presents to ED secondary to sudden onset of confusion noted by nursing staff. When paramedics arrived at scene, patient was noted to be unresponsive, although with
spontaneous right-sided movement. Patient also noted to have blood around his mouth, with incontinence. Patient started to become more awake prior to transfer to ED, but not cooperative. Upon arrival in the ED, patient is awake and denies any
complaints. Patient has no recollection of events preceding arrival ED.
Past History
Past History
ED Past Medical History: Cancer (Prostate), HTN, NIDDM, Other (Vitamin D deficiency, gait dysfunction, hypertriglyceridemia, torn right biceps, morbid obesity) and Other (wounds on bilateral legs)
ED Past Surgical History: Orthopedic (Left knee replacement 2013, rotator cuff tear repair 2017, carpal tunnel release 2011) and Other (Herniorrhaphy)
Review of Systems
Review of Systems
Allergies reviewed?: Yes
Unable to obtain full review of systems at this time due to: due to acuity
All Other Systems: Not applicable
Phy Exam
Physical Exam
Physical Exam:
Physical Exam
General: mild distress, not acutely ill. afebrile
Head: nc/at. eomi
Neck: supple. normal range of motion.
Heart: s1/s2 regular rate and rhythm, no murmur. equal radial pulses.
Lungs: no acute respiratory distress. clear bilaterally
Abdomen: normal bowel sounds. not tender.
Neuro: alert and awake. no focal neurological deficits
Skin: no rash. superficial laceration of prox tongue noted without active bleeding
Extremities: no edema. no calf tenderness.
Course
Orders/Labs/Results
Orders:
Orders
11/27/23 12:45
CT Head W/o Cont STROKE ALERT Urgent
Comment:
Reason For Exam: unresponsive episode, R gaze, left neglect
11/27/23 12:46
Electrocardiogram (*1) Urgent
Reason for Study: TIA/Stroke
EKG- Treatment ONCE
11/27/23 12:47
Lorazepam [Ativan] 2 mg .ROUTE .STK-MED ONE
11/27/23 12:55
Lorazepam [Ativan] 2 mg IV NOW STA
11/27/23 12:56
CT Head/Neck Ang STROKE ALERT Urgent
Comment:
Reason For Exam: alter. MS, left neglect, right gaze pref
11/27/23 13:12
Complete Blood Count/No Diff Urgent
Comprehensive Metabolic Panel Urgent
Magnesium Urgent
Tylenol [Acetaminophen] Urgent
11/27/23 13:26
Drug Screen, Urine [Urine Drug Abuse Screen] Urgent
Date Specimen was Collected: 11/27/23
Time Specimen was Collected: 13:25
Fentanyl, Urine Urgent
Urinalysis Reflex To Culture Urgent
Date Specimen was Collected: 11/27/23
Time Specimen was Collected: 13:25
Urine Microscopic Reflex Cult Urgent
11/27/23 13:55
EEG Routine Stat
Reason for Exam: AMS, recent large stroke
11/27/23 14:50
Levetiracetam Injectable [Keppra] 1,500 mg IV NOW STA
11/27/23 14:57
Admit/Transfer Patient As Directed
Co-Sign Provider:
Level of Care: Inpatient admission
Assign to:: Telemetry
Physician / Group: burgos
Diagnosis: seizure vs CVA
Reason for Telemetry: Arrhythmia
Date to Stop Telemetry: 11/30/23
Time to Stop Telemetry: 11:00
Reason for Hospitalization: seizure vs CVA
Expected length of stay greater than two midnights?: Yes
ELOS- Estimated Length of Stay in days: 3
I certify the patient meets the requirements for IP care: Yes
11/27/23 14:58
PRN Pain Medication Management As Directed
May give lesser potent ordered pain med per pt: Yes
preference::
Protocol:: Medication orders for pain may be administered in a
manner that supports deferring to patient preference
when the pt is:
- Requesting an ordered lesser potent pain medication.
Least to most potent pain medications are defined
as: acetaminophen < NSAID < tramadol < opioids
(morphine, oxycodone, hydromorphone).
- Requesting a lesser dose of the same medication IF
ORDERED.
- Requesting a less intrusive route of administration
if both routes are prescribed by the provider (PO <
IV).
11/27/23 15:00
Code Status As Directed
Resuscitation Status: Full Code
11/27/23 15:05
CR Chest - 2 Views Stat
Comment:
Reason For Exam: sob
11/27/23 20:00
Levetiracetam Injectable [Keppra] 1,000 mg IV Q12
11/27/23 21:01
Acetaminophen [Tylenol/Feverall] 650 mg RECTAL Q4HPRN PRN
Acetaminophen [Tylenol] 650 mg PO Q4HPRN PRN
Atorvastatin [Lipitor] 40 mg PO QPM
Docusate Sodium [Colace] 100 mg PO BID
Lorazepam [Ativan] 0.5 mg PO BIDPRN PRN
Miconazole Nitrate [Desenex/Mitrazol/Zeasorb] See Dose Instructions TOPICAL BID
11/27/23 21:01
Case Management Consult ONCE
Case Management Consult: Discharge Planning
Comment: stroke/tia
DIETARY CONSULT Routine
Reason for Consult: stroke/TIA
NEUROLOGY CONSULT Urgent
Consulting Provider: Kimi Mcclelland
Was physician already notified: Yes
Maintenance Associate Urgent
WOUND/OSTOMY CONSULT Routine
Reason for Consult: b/l Le wound
Glycohemoglobin (HgbA1c) Routine
MR Brain Without Contrast Routine
Comment:
Reason For Exam: stroke/TIA
Recent pill cam endoscopy?: No
Activity As Directed
Activity Level: As Tolerated
Compression Sleeves [Pneumatic Compression Sleeves] As Directed
Type: Thigh high
NIH Stroke Scale As Directed
Directions: Per protocol
Comment: every shift and with any change in condition or mental status
Neurological Checks As Directed
Frequency: q4h
Additional Instructions:: q4h x 24h upon admission to the floor, then qshift & with any change in condition
and mental status
Patient Education As Directed
Type: Stroke education packet
Comment: provide to patient and family
Precautions As Directed
Type of Precautions: Seizure
Swallow Screening CVA/TIA ONLY As Directed
Comment: NPO until swallowing screening completed
If patient FAILS swallow screening:: NPO, Speech Therapy consult, Aspiration Precautions
If patient PASSES swallow screening, diet:: Sodium, 2 Gram
Vital Signs As Directed
Frequency: Per unit guidelines
Ot Eval And Treat Routine
Pt Eval And Treat Routine
Activity Level: As Tolerated
Speech Therapy Eval & Treat Routine
DX Deep Vein Thrombosis Video Routine
11/27/23 22:00
Lorazepam [Ativan] 0.5 mg PO HS
Trazodone [Desyrel] 50 mg PO HS
11/28/23 06:00
Basic Metabolic Panel IN AM
Cardiovascular Evaluation IN AM
Complete Blood Count/No Diff IN AM
11/28/23 08:00
Aspirin Chewable [Low Strength Aspirin] 81 mg PO DAILY
Loratadine [Claritin] 10 mg PO DAILY
Meloxicam [Mobic] 15 mg PO DAILY
Pantoprazole [Protonix] 40 mg PO DAILY
Sertraline HCl [Zoloft] 25 mg PO DAILY
11/28/23 12:00
Olmesartan Medoxomil [Benicar] 20 mg PO NOON
Sennosides [Senokot] 17.2 mg PO NOON
11/29/23 06:00
Basic Metabolic Panel IN AM
Complete Blood Count/No Diff IN AM
11/30/23 06:00
Basic Metabolic Panel IN AM
Complete Blood Count/No Diff IN AM
11/30/23 11:00
DC Protocol for Telemetry ONCE
12/01/23 06:00
Basic Metabolic Panel IN AM
Complete Blood Count/No Diff IN AM
12/02/23 06:00
Basic Metabolic Panel IN AM
Complete Blood Count/No Diff IN AM
Abnormal Lab Results
11/27/23 11/27/23 11/27/23
12:45 13:12 13:26
MCHC 32.7 L g/dL
(33.0-37.0)
RDW 15.2 H %
(11.5-14.5)
Carbon Dioxide 14 L* mmol/L
(22-30)
Glucose 143 H mg/dl
(70-99)
Urine Bacteria (Reflex) Few A
(Negative)
Urine Albumin (Reflex) 1+ A
(Neg - Trace)
Acetaminophen < 10 L ug/ml
(10-30)
U Benzodiazepines Scrn Positive H
(Negative)
POC Glucose 144 H mg/dl
(70-99)
11/27/23 13:12
11/27/23 13:12
Vital Signs
Initial and Last Documented VS:
Initial Vital Signs
Temp Pulse Resp BP Pulse Ox
98.8 F 83 18 159/117 85
11/27/23 13:14 11/27/23 13:14 11/27/23 13:14 11/27/23 13:14 11/27/23 13:14
Last Documented Vital Signs
Temp Pulse Resp BP Pulse Ox
98.8 F 69 16 169/96 99
11/27/23 13:14 11/27/23 20:00 11/27/23 20:00 11/27/23 16:00 11/27/23 18:15
MDM/Problems Addressed
MDM/Problems Addressed:
Prehospital stroke alert.
Patient evaluated immediately upon arrival by myself along with neurology, Dr. Mcclelland.
CT head/CTA: NAD.
Pt requiring Ativan during CT scan due to increased agitation. Seizure vs TIA
Pt will be started on Keppra and admit for further evaluation and treatment.
*EKG
Interpreted by ED Provider?: Yes
EKG Intrepretation Date: 11/27/23
Heart Rate: 76
Rate: normal
Rhythm: a-fib
QRS Pattern: right bundle branch block
*Critical Care Note
Total Time (30-74mins, 75-104mins- exclusive of procedures): Not Applicable
ED Attending Note
-
Portions of this chart may have been created with voice recognition software.� Occasional wrong word or��sound alike� substitutions may have occurred due to the inherent limitations of voice recognition software.
Discharge Plan
Departure
Patient Disposition: Admit
Date of Disposition: 11/27/23
Time of Disposition: 14:31
Presentation/result/management discussed w/ accepting MD/DO: Hospitalist
Discharge Problem:
Altered mental status
Interventions
Interventions:
*Risk Screen - Suicide Last Done: 11/27/23 13:17
*General Assessment Last Done: 11/27/23 13:17
*Neglect/Abuse Screening Last Done: 11/27/23 13:17
ED- Fall Risk Assessment Last Done: 11/27/23 15:25
*ED COVID-19 Vaccine History Last Done: 11/27/23 13:17
*Nursing Disposition Last Done: 11/27/23 20:59
ED- Pulmonary Assessment Last Done: 11/27/23 21:00
ED-Psychological Assessment Last Done: 11/27/23 21:00
ED- Neurological Assessment Last Done: 11/27/23 15:25
ED- Cardiac Assessment Last Done: 11/27/23 15:25
Discharge Date and Time
Discharge Date/Time: 11/27/23 21:01
[2023-11-27] MEDS: ATIVAN 2 MG IV (13:13)
[2023-11-27 13:36] LABS: Urine Albumin 1+ (Neg - Trace); Urine Bilirubin Negative (Negative); Urine Character Clear (Clear); Urine Color Yellow; Urine Glucose Negative (Negative); Urine Ketone Negative (Negative); Urine Leukocyte Negative (Negative); Urine Nitrite Negative (Negative); Urine Occult Blood Negative (Negative); Urine Urobilinogen Negative (Neg - 1+)
[2023-11-27 13:49] LABS: Hemoglobin 14.7 g/dL (13.0-18.0); Mean Corp Hgb Conc. 32.7 g/dL (33.0-37.0); Mean Corpuscular Hgb 28.7 pg (27.0-31.0); Mean Corpuscular Volume 87.9 fL (80.0-94.0); Mean Platelet Volume 10.2 fL (7.4-10.4); Platelet Count 220 10^3/uL (130-400); Red Blood Cell Count 5.12 10^6/uL (4.70-6.10); Red Cell Dist. Width 15.2 % (11.5-14.5); White Blood Cell Count 9.7 10^3/uL (4.8-10.8)
[2023-11-27 13:56] LABS: AST (SGOT) 34 U/L (17-59); Acetaminophen < 10 ug/ml (10-30); Albumin 4.1 g/dl (3.5-5.0); Alkaline Phosphatase 125 U/L (38-126); Blood Urea Nitrogen 16 mg/dl (9-20); Calcium 9.2 mg/dl (8.4-10.2); Carbon Dioxide 14 mmol/L (22-30); Chloride 104 mmol/L (98-107); Glucose 143 mg/dl (70-99); Magnesium 2.2 mg/dl (1.6-2.3); Potassium 4.2 mmol/L (3.5-5.1); Sodium 141 mmol/L (135-145); Total Bilirubin 0.5 mg/dl (0.2-1.3); Total Protein 7.2 g/dl (6.3-8.2); eGFR > 60.00
[2023-11-27 14:05] LABS: Urine Bacteria Few (Negative); Urine Red Blood Cell 0-2 /HPF (0-2); Urine Squamous Cell 0-2 /LPF (Few); Urine White Cell 0-2 /HPF (0-5)
[2023-11-27 14:19] LABS: Amphetamines Negative (Negative); Barbiturates Negative (Negative); Benzodiazepines Positive (Negative); Buprenorphine Negative (Negative); Cocaine Negative (Negative); Marijuana Negative (Negative); Methadone Negative (Negative); Methamphetamines Negative (Negative); Opiates Negative (Negative); Phencyclidine Negative (Negative); Tricyclic Antidepressants Negative (Negative)
[2023-11-27 14:21] LABS: ALT (SGPT) < 10 U/L (0-50)
--- NOTE | 2023-11-27 14:34 | HPS.HSE ---
Family Physician
-
Family Physician: NO INTERVIEW UNKNOWN
Chief Complaint
-
SUÁREZ
History of Present Illness
Patient with history atrial fibrillation on Eliquis, status post CVA in July 2023, presents to ED secondary to sudden onset of confusion noted by nursing staff. patient does not know why he is here. he was having headache today. he took Tylenol.
not sure how he got here. as per ER note, When paramedics arrived at scene, patient was noted to be unresponsive, although with spontaneous right-sided movement. Patient also noted to have blood around his mouth, with incontinence. at present
denied SUÁREZ, dizzy or syncopal episode. denied fever, chills, chest pain, sob.denied abdominal pain,n,v,d. denied dysuria or hematuria. he has chronic LE wound.
head and head neck CTA with no acute findings. admitting for further management.
Medical History
Past Medical History
Past Medical History: Reports Other
Additional Past Medical History:
Hypertension
Prostate cancer
Chronic lower extremities once
Atrial fibs
Past Surgical History: Reports Other
Additional Past Surgical History:
Left knee replacement
Rotator cuff tear repair
Tonsillectomy
Carpal tunnel release
Social History
Tobacco: Non-smoker
Alcohol: None
Drug: None
Personal: Single
Living: Assisted Living
Family History
Family History: Not pertinent
Allergies / Home Medications
Allergies reflects when Allergies were last updated in [facility].
Home Medications with original date entered in [facility]
Allergy/Medication List:
Allergies
Allergy/AdvReac Type Severity Reaction Status Date / Time
No Known Allergies Allergy Verified 07/11/23 14:05
Home Medications
miconazole nitrate 2 % topical powder (Desenex) 1 applic topical BID b/l groin 07/11/23
acetaminophen 500 mg tablet 1,000 mg (2 x 500 mg) PO BIDPRN PRN mild pain 30 days #100 tabs 07/29/23
apixaban 5 mg tablet (Eliquis) 5 mg PO BID 30 days #60 tabs 07/29/23
ascorbic acid (vitamin C) 500 mg tablet (Vitamin C) 500 mg PO DAILY Supplement 30 days #30 tabs 07/29/23
atorvastatin 40 mg tablet 40 mg PO QPM High cholesterol 30 days #30 tabs 07/29/23
bisacodyl 5 mg tablet,delayed release 10 mg (2 x 5 mg) PO DAILYPRN PRN constipation 30 days #60 tabs 07/29/23
cholecalciferol (vitamin D3) 125 mcg (5,000 unit) tablet 125 mcg PO DAILY supplement 30 days #30 tabs 07/29/23
docusate sodium 100 mg capsule 100 mg PO BID cosntipation 30 days #60 caps 07/29/23
loratadine 10 mg tablet 10 mg PO DAILY pruritis 30 days #30 tabs 07/29/23
multivitamin with folic acid 400 mcg tablet (Tab-A-Kris) 1 tab PO DAILY Supplement 30 days #30 tabs 07/29/23
olmesartan 20 mg tablet 20 mg PO NOON blood pressure 30 days #30 tabs 07/29/23
pantoprazole 40 mg tablet,delayed release 40 mg PO DAILY GERD 30 days #30 tabs 07/29/23
sennosides 8.6 mg tablet (Senna Laxative) 17.2 mg (2 x 8.6 mg) PO NOON constipation 30 days #60 tabs 07/29/23
lorazepam 0.5 mg tablet 0.5 mg PO BIDPRN PRN ANXIETY 11/27/23
lorazepam 0.5 mg tablet 0.5 mg PO HS 11/27/23
meloxicam 15 mg tablet 15 mg PO DAILY 11/27/23
sertraline 25 mg tablet 25 mg PO DAILY 11/27/23
trazodone 50 mg tablet 50 mg PO HS insomnia 11/27/23
Review of Systems
-
Constitutional: Reports No Symptoms
EENT: Reports No Symptoms
Respiratory: Reports No Symptoms
Cardiac: Reports No Symptoms
Abdomen/GI: Reports No Symptoms
: Reports No Symptoms
Musculoskeletal: Reports No Symptoms
Skin: Reports No Symptoms
Neurological: Reports Headache
Endocrine: Reports No Symptoms
Hematologic/Lymphatic: Reports No Symptoms
Psych: Reports No Symptoms
Physical Exam
Vital Signs
Vital Signs
Temp Pulse Resp BP Pulse Ox
98.8 F 86 16 165/83 97
11/27/23 13:14 11/27/23 14:00 11/27/23 14:02 11/27/23 14:00 11/27/23 14:00
Physical Exam
General: Well Developed, Well Nourished and No Apparent Distress
HEENT: NormoCephalic, Moist mucous membranes and Atraumatic
Respiratory: Clear
Cardiac: S1/S2 and Regular Rhythm; No Murmur or Rub
GI: Soft, Non Tender, Non Distended and Normal Bowel Sounds; No Organomegaly
Rectal: Deferred by Provider
Musculoskeletal: No Clubbing, No Cyanosis and No Edema
Skin: Rash and Other (chronic LE wounds)
Neuro: Nonfocal/grossly intact
Laboratory Results
-
11/27/23 13:12
11/27/23 13:12
Laboratory Results
Total Bilirubin 0.5 mg/dl (0.2-1.3) 11/27/23 13:12
AST 34 U/L (17-59) 11/27/23 13:12
ALT < 10 U/L (0-50) 11/27/23 13:12
Alkaline Phosphatase 125 U/L (38-126) 11/27/23 13:12
Data Reviewed
-
CT Scan: Report Reviewed by me
Lab Data: Labs Reviewed by me
Impression/Plan
-
# Metabolic encephalopathy likely seizure versus CVA
-Head CT negative
-Aspirin 81 Mg
-Obtain MRI and EEG
-UA negative
-Head neck CTA with impression of No acute major branch vessel occlusion or dissection identified.
3. 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 There is less than 50% narrowing of the proximal right extracranial internal carotid artery. There is approximately 60% narrowing of the intracranial right internal carotid
artery related to calcific plaque formation.
4. Interval partial recanalization of the P2 segment right posterior cerebral with a residual high-grade stenosis. There is severe narrowing of the left posterior cerebral artery P2 segment. There was significant narrowing identified on the prior
examination.
5. Interstitial edema and small right pleural effusion.
-neuro following patient
-keppra continued
# Metabolic acidosis likely from seizures
-CO2 14
-TM
# Primary hypertension
-olmesartan continued
#HLD
-statin continued
#anxiety
-lorazepam continued
-sertraline continued
-trazodone for sleep
#GERD
-PPI continued
# Nodular contour of liver-patient aware about ultrasound of the outpatient
# Adrenal nodule-MRI/CT of the adrenal glands as outpatient
# permanent atrial fib
-Monitor on cardiac telemetry
-hold eliquis as per neuro
-EKG with atrial fib
# Morbid obesity
# Chronic venous wound bilateral lower extremity
-- Both legs are swollen red, ulceration looked red erythematous with soaked gauze on some
-wound care consulted
# Chronic ambulatory dysfunction. Uses cane
-PT/OT consult
# History of prostate cancer
# DVT prophylaxis-Eliquis
#CODE status
-full code
[2023-11-27 14:38] LABS: Fentanyl, Urine Negative (Negative)
--- NOTE | 2023-11-27 14:44 | CON.NEURO4 ---
Addendum entered and electronically signed by Kimi Mcclelland DO 11/27/23 20:06:
Studies reviewed.
I have personally examined the patient. I agree with the JAZZ MUSICIAN's Note.
My addenda: 77 year-old male who presented to the ED as a stroke alert after an episode of unresponsiveness with tongue maceration. No clearly witnessed seizure activity. Does have a h/o of a large R temporal/occipital ischemic stroke in June
2023; was seen here by neurology at that time.
Agree with exam, plan as documented below.
EEG showed no clear epileptiform abnormalities, but given increased risk of seizure with recent stroke and presentation, he has been loaded with Keppra and started on a standing dose q12.
Hold home Eliquis until MRI brain is obtained given ? new stroke, risk of hemorrhagic conversion. Initiate aspirin 81mg daily while Eliquis is held.
Will c/t follow.
Critical care time 65 mins
Original Note:
Documented by User: Sandhya Ventura NP 11/27/23 15:50
Consultation - Neurology 4
-
CONSULTING PHYSICIAN: Kimi Mcclelland DO
REFERRING PHYSICIAN: ER/Dr. Wu
DICTATED BY: TIMI Hancock
DATE/TIME OF REQUEST: 11/27/23
DATE/TIME OF CONSULTATION: 11/27/23
Reason for Consultation: Stroke Alert
History of Present Illness:
This is a 77-year-old RH male who has presented to the hospital from [facility] assisted living as a Stroke Alert with report of unresponsiveness. Patient was recently evaluated by our inpatient Neurology service in July 2023 for a large right
temporal/occipital ischemic stroke.
From previous evaluation by Dr. Rangel on 07/06/23:
'Started 'being dysfunctional' starting yesterday, with visual loss. Patient had problems with use of phone also.
Started at 17:45 hours yesterday. Associated headache, although he also described himself as sleep deprived at the time of onset of symptoms. Then napped for unclear time frame. Awoke at 02:00 this morning, attempted to call family for assistance,
and was unsuccessful. Discovered by family at 08:45 to continue to have difficult manipulation of objects as well as visual changes leading to presentation at this hospital's emergency department. No other associated symptoms. No known modifying
factors. No recent medical changes.'
MRI brain demonstrated a large right temporal/occipital ischemic stroke. CTA head/neck demonstrated a chronic L internal carotid artery occlusion, 70% right vertebral artery stenosis. Afib was observed on telemetry monitoring and patient was placed
on Eliquis.
This morning (11/27/23), patient was seen at his baseline at 0800 and reported a headache. Around 1100, staff noted that patient seemed confused and not at his AAOx3 baseline. Around 1200 he became unresponsive and EMS were called. On EMS arrival
patient was initially unresponsive with a right gaze deviation and he had spontaneous right-sided movement. His mouth was bloody and he had been incontinent of urine. A prehospital stroke alert was activated. On arrival in the ER, patient was
restless/uncooperative but was speaking and following rare commands. NIHSS was challenging to assess due to lack of cooperation. He appeared to be paying more attention to his right side but was antigravity with his left side with extra prompting.
2mg IV lorazepam was administered due to agitation on the CT scan table. CT head and CTA head/neck were obtained and demonstrate his large chronic right occipitoparietal infarct, L ICA occlusion, and 60% narrowing of the intracranial R ICA. He is
not a candidate for TNK/IAT due to last dose of Eliquis was this morning and no acute LVO. After lorazepam administration, patient is drowsy but conversant, oriented x3, following commands, moving all extremities, and no gaze deviation is noted.
Past Medical History: Large right temporal/occipital lobe ischemic stroke 07/2023, Afib (Eliquis), HTN, HLD, NIDDM, vitamin D deficiency, gait dysfunction, hypertriglyceridemia, chronic BLE venous stasis nonhealing ulcers, TATIANA, obesity
Surgical History: L TKR, RTC repair, carpal tunnel release, herniorrhaphy
Family History: Reviewed and noncontributory.
Social History: Denies tobacco and illicit drug use. Occasional alcohol.
Allergies: No known allergies.
Home Medications: See below.
Review of Symptoms:
Patient denies any fever, headache, chest pain, shortness of breath, GI or symptoms.
�Per the HPI.�All systems are reviewed negative except above.
Physical Exam:
The patient is afebrile, abdomen is obese, breathing is unlabored, skin is warm, BLE wounds with DSD. There is a hematoma on the tip of the tongue.
NIH Stroke Scale:
I performed the NIH stroke scale on the patient on 11/27/23 at . The patient scored 7 points on the NIH stroke scale assessment, which were assigned as follows: See below, inaccurate due to lack of cooperation.
Neurologic Examination:
The patient is drowsy. He is oriented x 3. He is able to follow some commands and answer questions appropriately. There is no aphasia or dysarthria. On cranial nerve assessment, pupils are 3 mm bilateral, round and reactive to light and
accommodation. ANNELIESE visual buckner or EOMS but gaze is midline. There is no facial asymmetry. Hearing is intact bilaterally to normal conversation volume. Tongue palate and uvula are midline. Sternocleidomastoid strengths are full bilaterally. Motor
strengths are 4/5 bilateral upper and 2/5 bilateral lower extremities on medical research Gwinner scale. ANNELIESE drift due to cooperation. No involuntary movement noted. Babinski is absent bilaterally. ANNELIESE extinction with DBS. Coordination is intact by
finger to nose bilaterally.
Lab Results: See below.
Neuro Imaging:
1. CT head 11/27/23: No acute intracranial abnormality identified. Large chronic right occipitoparietal infarct.
2. CTA Head/neck 11/27/23: Examination significantly limited by artifacts and suboptimal contrast bolus timing as above. No acute major branch vessel occlusion or dissection identified. Unchanged chronic occlusion left extracranial internal carotid
artery. There is less than 50% narrowing of the proximal right extracranial internal carotid artery. There is approximately 60% narrowing of the intracranial right internal carotid artery related to calcific plaque formation. Interval partial
recanalization of the P2 segment right posterior cerebral with a residual high-grade stenosis. There is severe narrowing of the left posterior cerebral artery P2 segment. There was significant narrowing identified on the prior examination.
Interstitial edema and small right pleural effusion.
3. EEG 11/27/23: Mildly abnormal EEG for age due to diffuse bihemispheric slowing
Differentials for the patient's presentation include:
1. Change in mental status likely due to new onset seizure in the setting of large old stroke scar reducing patient's seizure threshold, and possible metabolic disturbance. EEG currently negative for seizure.
2. Acute stroke less likely.
3. Chronic L ICA occlusion.
4. 60% intracranial R ICA stenosis.
Patient has the following risk factors for their symptoms: Old large stroke, Afib, HTN, HLD, age
IV Tenecteplase/IAT candidacy: He is not a candidate for TNK/IAT due to last dose of Eliquis was this morning and no acute LVO.
Recommendations:
-Hold home Eliquis until MRI brain is obtained. Initiate aspirin 81mg daily while Eliquis is held.
-Provide Keppra 1500mg IV x1 now. Initiate Keppra 1000mg IV q12hrs.
-Goal normotension.
-MRI brain noncontrast pending.
-Will need eventual outpatient Neurosurgery evaluation regarding intracranial R ICA stenosis.
-NIHSS and neurological checks per unit guidelines.
-Seizure precautions.
-Infectious workup per primary team.
-LDL goal <70. Lipid panel pending. Continue atorvastatin 40mg daily.
-Goal normoglycemia, hbA1c is pending.
-Provide patient with a stroke education packet.
-PT/OT/ST evaluations.
-DVT prophylaxis.
-Will follow.
Discussed patient care with: Dr. Mcclelland, the patient, patient's family
Vital Signs and Labs
-
Vital Signs and Labs:
Vital Signs
Temp Pulse Resp BP Pulse Ox
98.8 F 86 16 165/83 97
11/27/23 13:14 11/27/23 14:00 11/27/23 14:02 11/27/23 14:00 11/27/23 14:00
Lab Results
11/27/23 13:12
11/27/23 13:12
Sodium 141 mmol/L (135-145) 11/27/23 13:12
Potassium 4.2 mmol/L (3.5-5.1) 11/27/23 13:12
BUN 16 mg/dl (9-20) 11/27/23 13:12
Glucose 143 mg/dl (70-99) H 11/27/23 13:12
Calcium 9.2 mg/dl (8.4-10.2) 11/27/23 13:12
Ur Buprenorphine Negative (Negative) 11/27/23 13:26
Medications
-
Active Medications
Generic Name Dose Route Start Last Admin
Trade Name Freq PRN Reason Stop Dose Admin
Levetiracetam 1,000 mg 11/27/23 20:00
Levetiracetam (100 Mg/Ml) 500 Mg/5 Ml Vial IV 12/25/23 19:59
Q12 KARLA
Home Medications
�Medication �Instructions �Recorded
miconazole nitrate 2 % topical 1 applic topical BID b/l groin 07/11/23
powder (Desenex)
acetaminophen 500 mg tablet 1,000 mg (2 x 500 mg) PO BIDPRN 07/29/23
PRN mild pain 30 days #100 tabs
apixaban 5 mg tablet (Eliquis) 5 mg PO BID 30 days #60 tabs 07/29/23
ascorbic acid (vitamin C) 500 mg 500 mg PO DAILY Supplement 30 days 07/29/23
tablet (Vitamin C) #30 tabs
atorvastatin 40 mg tablet 40 mg PO QPM High cholesterol 30 07/29/23
days #30 tabs
bisacodyl 5 mg tablet,delayed 10 mg (2 x 5 mg) PO DAILYPRN PRN 07/29/23
release constipation 30 days #60 tabs
cholecalciferol (vitamin D3) 125 125 mcg PO DAILY supplement 07/29/23
mcg (5,000 unit) tablet days #30 tabs
docusate sodium 100 mg capsule 100 mg PO BID cosntipation 30 days 07/29/23
#60 caps
loratadine 10 mg tablet 10 mg PO DAILY pruritis 30 days 07/29/23
#30 tabs
multivitamin with folic acid 400 1 tab PO DAILY Supplement 30 days 07/29/23
mcg tablet (Tab-A-Kris) #30 tabs
olmesartan 20 mg tablet 20 mg PO NOON blood pressure 30 07/29/23
days #30 tabs
pantoprazole 40 mg tablet,delayed 40 mg PO DAILY GERD 30 days #30 07/29/23
release tabs
sennosides 8.6 mg tablet (Senna 17.2 mg (2 x 8.6 mg) PO NOON 07/29/23
Laxative) constipation 30 days #60 tabs
lorazepam 0.5 mg tablet 0.5 mg PO BIDPRN PRN ANXIETY 11/27/23
lorazepam 0.5 mg tablet 0.5 mg PO HS 11/27/23
meloxicam 15 mg tablet 15 mg PO DAILY 11/27/23
sertraline 25 mg tablet 25 mg PO DAILY 11/27/23
trazodone 50 mg tablet 50 mg PO HS insomnia 11/27/23
NIH Stroke Score
Subsequent NIH Scale
Date of Subsequent NIH Scale: 11/27/23
Time of Subsequent NIH Scale: 13:15
NIH Stroke Score
Level of Consciousness: 1 - Arousable
LOC Questions: 0-Answers both correctly
LOC Commands: 0-Performs both correctly
Best Horizontal Gaze: 0-Normal
Visual Buckner: 0=Normal, no visual loss (ANNELIESE)
Facial Palsy: 0=Normal, symmetrical
Motor - Right Arm: 1=Drift < 10 seconds
Motor - Left Arm: 1=Drift < 10 seconds
Motor - Right Le-Partial vs. gravity
Motor - Left Le-Partial vs. gravity
Limb Ataxia: 0-Absent
Sensation: 0-Normal
Best Language: 0-No aphasia
Dysarthria: 0-Normal
Extinction and Inattention: 0-No abnormality (ANNELIESE)
Total Score:: 7
Modified Castro (mRS) Score
Modified [place] Scale (mRS): Moderately severe disability. Unable to attend to bodily needs/walk.
Score: 4
Alteplase Contraindication
Inclusion and Exclusion criteria reviewed: Yes
Reasons for NON-Tx with Thrombolytics ABSOLUTE Exclusions: Patient taking oral anticoagulant and last dose within 48 hours
IAT Contraindications: Imaging doesn't show large vessel occlusion as cause of stroke

Documented by User: Kimi Mcclelland DO 11/27/23 19:59
NIH Stroke Score
NIH Stroke Score
Total Score:: 7
Modified Castro (mRS) Score
Score: 4
--- NOTE | 2023-11-27 15:00 | W.PN.UPDATE ---
Update Note
Progress Note Update
This serves as an addendum to the H&P dictated by Geovani Monet on 11/27/2023.
I saw and examined the patient.
The BARGAIN TABLE CLERK or PA's note was reviewed and I agree with the note.
Comment:
Patient is 77 years old male from assisted living history of CVA, hypertension, dyslipidemia, diabetes mellitus, presented to the hospital with acute onset of altered mental status. He was called stroke alert upon arrival. Patient had a headache
and then after that was noted to be unresponsive with tonic-clonic activity mainly on his right side and confused afterwards and noticed to have blood around his mouth and urinary incontinence. Patient back to his baseline although slightly off by
the time of my evaluation in the ED. Denies chest pain or shortness of breath. No cough or dysuria. No fevers or chills. He does have some wound in the left lower extremity followed by wound care.
Physical exam:
General: Acute on chronically ill
HEENT: Normocephalic, Atraumatic and Moist Mucous Membranes
Respiratory: Clear to Auscultation; Negative Wheezes, Rales or Rhonchi
Cardiac: Regular Rhythm and S1/S2
GI: Soft, Nontender and Nondistended
Musculoskeletal: Left lower extremity erythema and wounds. No Clubbing, No Cyanosis
Neuro: Awake, Alert and Oriented, generalized weakness
Psych: Calm
A/P:
Mental status changes likely related to seizures, rule out worsening stroke and other inciting factors--> brain MRI, EEG, IV Keppra 1000 mg every 12 hours, neurology consult, wound care consult. Aspirin rather than Eliquis. Will give further
recommendations based on his clinical course.
[2023-11-27] MEDS: KEPPRA 1500 MG IV (15:13)
--- NOTE | 2023-11-27 15:23 | EEG.RPT ---
Electroencephalogram Report
Recording
Date of EE11/27/23
Type of EEG: Routine
Length of EEG recordin minutes
Done with Video Recording: Yes
Patient Status: Emergency Room
Recording Conditions: Awake, Drowsy and Asleep
Hyperventilation Performed: No
Photic Stimulation Performed: Yes
Report
LESS THAN 1 HOUR EEG REPORT
LESS THAN 1 HOUR EEG INTERPRETATION:
Mildly abnormal EEG for age due to diffuse bihemispheric slowing
CLINICAL CORRELATION:
This study was suggestive of diffuse cortical dysfunction without focal abnormality. No seizures were recorded.
Clinical correlation is advised.
METHODS:
A 21 channel digitized electroencephalogram (EEG) was performed at the bedside. The 10/20 international system of electrode placement was used with ECG and lateral/vertical eye movements recorded. Persyst QEEG monitoring was performed.
QUALITY OF STUDY:
Fair due to muscle artifact
ELECTROENCEPHALOGRAPHER IMPRESSION(S):
Background
There was a low to medium amplitude fairly well organized at times anterior-posterior voltage gradient of theta frequency
There were no significant asymmetries of background activity noted.
Sleep
Drowsiness present
Stage 1 sleep recorded
Photic Stimulation
Failed to activate the record.
ECG
Normal sinus rhythm
[2023-11-27] MEDS: LOW STRENGTH ASPIRIN 81 MG PO (17:01)
[2023-11-27] MEDS: KEPPRA 1000 MG IV (21:42)
[2023-11-27] MEDS: COLACE 100 MG PO (21:43)
[2023-11-27] MEDS: DESYREL 50 MG PO (21:43)
[2023-11-27] MEDS: LIPITOR 40 MG PO (21:44)
[2023-11-27] MEDS: ATIVAN 0.5 MG PO (21:44)
[2023-11-27] MEDS: TYLENOL 650 MG PO (22:06)
[2023-11-27] MEDS: DESENEX/MITRAZOL/ZEASORB 1 APPLIC TOPICAL (22:07)
--- NOTE | 2023-11-27 23:28 | PTCARENOTE ---
Pt scored 7 on NIH in ED, at admission assessment of NIH was 13. Edilberto CAPELLAN made aware. No new orders, will continue to monitor.
--- NOTE | 2023-11-28 01:30 | PTCARENOTE ---
Christopher CAPELLAN assessing pt with this RN. NIH scores have improved, see NIH assessment. Will monitor.
[2023-11-28 03:34] VITALS: BP 152/90
--- NOTE | 2023-11-28 04:31 | PTCARENOTE ---
Pt had a 2 second pause noted on telemetry and has been running bradycardic while sleeping. Pt is asymptomatic. Roly CAPELLAN made aware. No new orders, will continue to monitor.
--- NOTE | 2023-11-28 05:28 | W.PN.UPDATE ---
Update Note
Progress Note Update
RN notified BIBLE READER patient with 2 second pause, patient been bradycardia all night prior to that. Patient asymptomatic otherwise. per last Cardiology notes, Bradycardia likely due to TATIANA, recommended sleep study for CPAP. unknown if test was done. .
will order EKG in AM, stable vital signs now. Consider Can Machine Operator if further pauses with symptoms.
[2023-11-28 07:58] VITALS: BP 179/83
--- NOTE | 2023-11-28 08:45 | PTOTSP ---
Dysphagia Evaluation
Oral/pharyngeal stages of swallowing suspected to be within functional limits. Patient should pick soft/moist foods for comfort given injury to left side of tongue.
Recommend:
1. Regular, Thin Liquids
2. Medications as best tolerated
3. General aspiration and reflux precautions
4. Dysphagia therapy not warranted.
5. Speech/language/cognitive evaluation pending results of MRI of Brain.
--- NOTE | 2023-11-28 08:51 | W.PN.HOSP.TC ---
Today's Communication/Plan
-
AED. MRI of the brain/EEG.
Assessment / Plan
Assessment / Plan
Physical exam:
General: Acute on chronically ill
HEENT: Normocephalic, Atraumatic and Moist Mucous Membranes
Respiratory: Clear to Auscultation; Negative Wheezes, Rales or Rhonchi
Cardiac: Regular Rhythm and S1/S2
GI: Soft, Nontender and Nondistended
Musculoskeletal: No Clubbing, No Cyanosis and No Edema
Neuro: Awake, Alert and Oriented, no neuro-deficits
Psych: Calm
A/P:
# Metabolic encephalopathy due to seizures
-Head CT negative. MRI of the brain negative for stroke.
-Discussed with neurology today.
-Aspirin 81 Mg can stop today. Restart Eliquis
-Obtained MRI and EEG
-UA negative
-Head neck CTA with impression of No acute major branch vessel occlusion or dissection identified.
3. 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 There is less than 50% narrowing of the proximal right extracranial internal carotid artery. There is approximately 60% narrowing of the intracranial right internal carotid
artery related to calcific plaque formation.
4. Interval partial recanalization of the P2 segment right posterior cerebral with a residual high-grade stenosis. There is severe narrowing of the left posterior cerebral artery P2 segment. There was significant narrowing identified on the prior
examination.
5. Interstitial edema and small right pleural effusion.
-neuro following patient
-keppra continued
# Metabolic acidosis likely from seizures
-CO2 14
-TM
# Primary hypertension
-olmesartan continued
#HLD
-statin continued
#anxiety
-lorazepam continued
-sertraline continued
-trazodone for sleep
#GERD
-PPI continued
# Nodular contour of liver-patient aware about ultrasound of the outpatient
# Adrenal nodule-MRI/CT of the adrenal glands as outpatient
# permanent atrial fib
-Mild bradycardia and cardiac pauses overnight but not to the extent that needs any further treatment at the moment. Twelve-lead EKG this morning unremarkable. Continue cardiac monitoring and if cardiac process recur or more pronounced then
consider cardio eval
-Monitor on cardiac telemetry
-resume eliquis
-EKG with atrial fib
# Morbid obesity
# Chronic venous wound bilateral lower extremity
-- Both legs are swollen red, ulceration looked red erythematous with soaked gauze on some
-wound care consulted
# Chronic ambulatory dysfunction. Uses cane
-PT/OT consult
# History of prostate cancer
# DVT prophylaxis-Eliquis
#CODE status
-full code
Anticipated Discharge: 24 - 48 hours
Subjective/Interval History
-
Date of Service: November 28, 2023
Patient back to his baseline. No chest pain or shortness of breath. Afebrile
Objective Data
-
Labs:
Laboratory Results
11/28/23
08:25
WBC Pending
Hgb Pending
Hct Pending
Plt Count Pending
Sodium Pending
Potassium Pending
Chloride Pending
Carbon Dioxide Pending
BUN Pending
Creatinine Pending
Glucose Pending
Calcium Pending
Vital Signs:
Vital Signs
Temp Pulse Resp BP Pulse Ox
98.3 F 66 18 179/83 96
11/28/23 07:58 11/28/23 07:58 11/28/23 07:58 11/28/23 07:58 11/28/23 07:58
I&O
11/27/23 11/28/23 11/29/23
06:59 06:59 06:59
Intake Total 180 / 180
Balance 180 / 180
[2023-11-28 08:54] LABS: Glycohemoglobin (HgbA1c) 5.5 % (4.0-5.6)
[2023-11-28] MEDS: CLARITIN 10 MG PO (09:03)
[2023-11-28] MEDS: PROTONIX 40 MG PO (09:03)
[2023-11-28] MEDS: COLACE 100 MG PO ×2 (09:03→21:05)
[2023-11-28] MEDS: LOW STRENGTH ASPIRIN 81 MG PO (09:03)
[2023-11-28] MEDS: MOBIC 15 MG PO (09:03)
[2023-11-28] MEDS: ZOLOFT 25 MG PO (09:03)
[2023-11-28] MEDS: TYLENOL 650 MG PO (09:04)
[2023-11-28] MEDS: DESENEX/MITRAZOL/ZEASORB 1 APPLIC TOPICAL ×2 (09:04→21:09)
[2023-11-28] MEDS: KEPPRA 1000 MG IV ×2 (09:07→21:06)
[2023-11-28 09:09] LABS: Hematocrit 40.5 % (39.0-52.0); Hemoglobin 13.3 g/dL (13.0-18.0); Mean Corp Hgb Conc. 32.8 g/dL (33.0-37.0); Mean Corpuscular Hgb 29.3 pg (27.0-31.0); Mean Corpuscular Volume 89.2 fL (80.0-94.0); Mean Platelet Volume 10.4 fL (7.4-10.4); Platelet Count 180 10^3/uL (130-400); Red Blood Cell Count 4.54 10^6/uL (4.70-6.10); Red Cell Dist. Width 15.2 % (11.5-14.5); White Blood Cell Count 10.5 10^3/uL (4.8-10.8)
[2023-11-28 09:27] LABS: Blood Urea Nitrogen 18 mg/dl (9-20); Calcium 8.5 mg/dl (8.4-10.2); Carbon Dioxide 28 mmol/L (22-30); Chloride 104 mmol/L (98-107); Estimated Creatinine Clearance 110 ml/min; Glucose 89 mg/dl (70-99); HDL Cholesterol 48 mg/dl; LDL Cholesterol, Calculated 49 mg/dl; Potassium 3.7 mmol/L (3.5-5.1); Sodium 141 mmol/L (135-145); Total Cholesterol 115 mg/dl (50-199); Triglyceride 91 mg/dl (10-149); Very Low Density Lipoprotein 18 mg/dl (0-30); eGFR > 60.00
[2023-11-28 12:27] VITALS: BP 161/91
[2023-11-28] MEDS: SENOKOT 17.2 MG PO (12:34)
[2023-11-28] MEDS: BENICAR 20 MG PO (12:35)
[2023-11-28 12:39] VITALS: BMI 39.6
[2023-11-28 13:00] VITALS: BP 173/99; BP 179/103; PULSE 58; PULSE 66; O2SAT 98
--- NOTE | 2023-11-28 13:51 | W.PN.NEURO.1 ---
Today's Communication / Plan
-
continue Keppra
ok for d/c
can restart eliquis
Neuro Assessment/Plan
Assessment
77 year-old male who presented to the ED as a stroke alert after an episode of confusion followed by unresponsiveness with tongue maceration and urinary incontinence. No clearly witnessed seizure activity. Does have a h/o of a large R
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
EEG done yesterday did not show any clear epileptiform activity but given concern for seizure clinically he was started on Keppra. He has now returned to his baseline, does not recall events from yesterday. No clear provoking factor for seizure;
h/o stroke increases his risk of seizure.
MRI brain, 11/27:
No acute infarct.
Encephalomalacia and gliosis associated with previous right temporal-occipital infarct.
Plan
-continue Keppra 1g PO BID
-already does not drive since his stroke so no need for [employer] reporting
-reviewed events leading to hospitalization with patient, EEG results, MRI results; reviewed recommendation to continue Keppra, potential s/e
-ok to restart anticoagulation, d/c ASA
-ok for d/c back to [facility] from my standpoint
-needs f/u with neurology in ~ 4 weeks.
-reviewed plan with hospitalist
Subjective/Objective
Subjective Data
Date of Service: November 28, 2023
back to baseline, does not recall events of yesterday
Objective Data
Vital Signs
Temp Pulse Resp BP Pulse Ox
98 F 65 18 161/91 96
11/28/23 12:27 11/28/23 12:27 11/28/23 12:27 11/28/23 12:27 11/28/23 12:27
Lab Results
11/28/23 08:25
11/28/23 08:25
Sodium 141 mmol/L (135-145) 11/28/23 08:25
Potassium 3.7 mmol/L (3.5-5.1) 11/28/23 08:25
BUN 18 mg/dl (9-20) 11/28/23 08:25
Glucose 89 mg/dl (70-99) 11/28/23 08:25
Calcium 8.5 mg/dl (8.4-10.2) 11/28/23 08:25
LDL Cholesterol, Calc 49 mg/dl 11/28/23 08:25
Ur Buprenorphine Negative (Negative) 11/27/23 13:26
Patient Allergies
No Known Allergies Allergy (Verified 07/11/23 14:05)
Physical Exam
-
Attention Span & Concentration: Awake, Alert and Interactive; good historian beyond not remembering events of yesterday
Tremor: Hand Tremor Absent
Involuntary Movement: None
Speech: Quality Unremarkable and Quantity Unremarkable; Negative Expressive Aphasia, Receptive Aphasia or Dysarthric
Cranial Nerve II: Left Eye: Pupillary Reactivity Unremarkable, Pupillary Size Unremarkable and Other (Left sided homonymous hemianopia)
Cranial Nerve II: Right Eye: Pupillary Reactivity Unremarkable, Pupillary Size Unremarkable and Other (Left sided homonymous hemianopia)
Muscle Strength, Overall: Full Throughout
Pronator Drift: No Drift in Upper Extremities
Deep Tendon Reflexes: Absent Throughout
Vibration Sensation: Reduced Mildly Distally
Touch Sensation: Pin Prick Reduced
Coordination: Bdwler-yatv-isnxel Testing Unremarkable
--- NOTE | 2023-11-28 14:58 | WOUNDNOTE ---
C RN NOTE: Reviewed chart and visited with patient. Confirmed with patient that Coflex was applied to bilateral LE wounds at [facility] on 11/25. Patient requests that Coflex not be removed and stay on for recommended 7 days. Will follow up with
patient for removal of Coflex if he is still in-patient on 12/02. Dr. Ron and RN Abraham made aware of plan.
[2023-11-28] MEDS: LIPITOR 40 MG PO (17:14)
[2023-11-28 19:23] LABS: COVID-19 Antigen Negative (Negative)
--- NOTE | 2023-11-28 19:46 | CM ---
met with patient at bedside.patient lives alone at [facility].he has an elevator to his apt.he amb very short distances qith a rw and is mostly [place] bound.he does not remeber his pcp.uses [facility] transport to doctor's apts.he has 2
supportive daughter living nearly and 1 daughter in [facility].he has been to [facility] through and is current with [facility] care.
dme:shower chair,electric wc,rolling walker
pmh: anxiety,afib on eliquis,htn,hld,adrenal mass,morbid obesity
patient is adm with metabolic encephelopathy due to szs.had mri brain,eeg,ct head and neck.neuro following on niru.he will dc home when stable for dc with [facility].referral placed in [facility].
[2023-11-28 19:50] VITALS: BP 168/96
[2023-11-28] MEDS: DESYREL 50 MG PO (21:05)
[2023-11-28] MEDS: ELIQUIS 5 MG PO (21:05)
[2023-11-28] MEDS: ATIVAN 0.5 MG PO (21:05)
[2023-11-28 23:50] VITALS: BP 156/92
--- NOTE | 2023-11-29 02:23 | PTCARENOTE ---
This Rn walked into pt room to place back on monitor. Found pt on side of bed, with leads off, blood on the floor and IV removed. Bed alarm in place. NIH remains unchanged at a 3. Able to be reoriented. Vitals within normal limits. Yani CAPELLAN
made aware of change in status. No new orders, will continue to monitor.
[2023-11-29 07:37] LABS: Hematocrit 40.5 % (39.0-52.0); Hemoglobin 13.2 g/dL (13.0-18.0); Mean Corp Hgb Conc. 32.6 g/dL (33.0-37.0); Mean Corpuscular Hgb 28.6 pg (27.0-31.0); Mean Corpuscular Volume 87.9 fL (80.0-94.0); Mean Platelet Volume 10.2 fL (7.4-10.4); Platelet Count 194 10^3/uL (130-400); Red Blood Cell Count 4.61 10^6/uL (4.70-6.10); White Blood Cell Count 10.7 10^3/uL (4.8-10.8)
[2023-11-29 08:00] VITALS: BP 171/104
[2023-11-29 08:04] LABS: Blood Urea Nitrogen 20 mg/dl (9-20); Calcium 8.6 mg/dl (8.4-10.2); Carbon Dioxide 26 mmol/L (22-30); Chloride 102 mmol/L (98-107); Estimated Creatinine Clearance 97 ml/min; Glucose 98 mg/dl (70-99); Potassium 3.5 mmol/L (3.5-5.1); Sodium 140 mmol/L (135-145); eGFR > 60.00
--- NOTE | 2023-11-29 09:36 | W.PN.HOSP.TC ---
Addendum entered and electronically signed by Trace Ron MD 11/29/23 16:25:
We are canceling discharge today. Patient's son feel that he is off his baseline and he does not remember what has transpired over the last 24 hours. Unclear if seizure related to medications or perhaps delirium. Will ask neurology to reevaluate.
Will also watch him here and reevaluate readiness for discharge over the weekend.
Original Note:
Today's Communication/Plan
-
Discharge planning today.
Assessment / Plan
Assessment / Plan
Physical exam:
General: Acute on chronically ill
HEENT: Normocephalic, Atraumatic and Moist Mucous Membranes
Respiratory: Clear to Auscultation; Negative Wheezes, Rales or Rhonchi
Cardiac: Regular Rhythm and S1/S2
GI: Soft, Nontender and Nondistended
Musculoskeletal: No Clubbing, No Cyanosis and No Edema
Neuro: Awake, Alert and Oriented, no neuro-deficits
Psych: Calm
A/P:
# Metabolic encephalopathy due to seizures
-Head CT negative. MRI of the brain negative for stroke.
-Discussed with neurology and he is cleared for discharge today.
-Aspirin 81 Mg can stop today. Restart Eliquis
-Obtained MRI and EEG
-UA negative
-Head neck CTA with impression of No acute major branch vessel occlusion or dissection identified.
3. 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 There is less than 50% narrowing of the proximal right extracranial internal carotid artery. There is approximately 60% narrowing of the intracranial right internal carotid
artery related to calcific plaque formation.
4. Interval partial recanalization of the P2 segment right posterior cerebral with a residual high-grade stenosis. There is severe narrowing of the left posterior cerebral artery P2 segment. There was significant narrowing identified on the prior
examination.
5. Interstitial edema and small right pleural effusion.
-neuro following patient
-keppra continued
#Exposure to COVID-19 patient
Tested for COVID-19 and is negative
# Metabolic acidosis likely from seizures
-CO2 14
-TM
# Primary hypertension
-olmesartan continued
#HLD
-statin continued
#anxiety
-lorazepam continued
-sertraline continued
-trazodone for sleep
#GERD
-PPI continued
# Nodular contour of liver-patient aware about ultrasound of the outpatient
# Adrenal nodule-MRI/CT of the adrenal glands as outpatient
# permanent atrial fib
-Mild bradycardia and cardiac pauses overnight but not to the extent that needs any further treatment at the moment. Twelve-lead EKG this morning unremarkable. Continue cardiac monitoring and if cardiac process recur or more pronounced then
consider cardio eval
-Monitor on cardiac telemetry
-resume eliquis
-EKG with atrial fib
# Morbid obesity
# Chronic venous wound bilateral lower extremity
-- Both legs are swollen red, ulceration looked red erythematous with soaked gauze on some
-wound care consulted
# Chronic ambulatory dysfunction. Uses cane
-PT/OT consult
# History of prostate cancer
# DVT prophylaxis-Eliquis
#CODE status
-full code
Anticipated Discharge: Today
Subjective/Interval History
-
Date of Service: November 29, 2023
Patient does not voice any new complaints. No new seizures
Objective Data
-
Labs:
Laboratory Results
11/29/23
07:02
WBC 10.7
Hgb 13.2
Hct 40.5
Plt Count 194
Sodium 140
Potassium 3.5
Chloride 102
Carbon Dioxide 26
BUN 20
Creatinine 0.8
Glucose 98
Calcium 8.6
Vital Signs:
Vital Signs
Temp Pulse Resp BP Pulse Ox
97.8 F 73 20 171/104 96
11/29/23 08:00 11/29/23 08:00 11/29/23 08:00 11/29/23 08:00 11/29/23 08:00
I&O
11/28/23 11/29/23 11/30/23
06:59 06:59 06:59
Intake Total 180 / 180 960 / 960 240 / 240
Output Total 850 / 850
Balance 180 / 180 960 / 960 -610 / -610
[2023-11-29] MEDS: COLACE 100 MG PO ×2 (09:42→21:06)
[2023-11-29] MEDS: KEPPRA 1000 MG IV (09:42)
[2023-11-29] MEDS: CLARITIN 10 MG PO (09:42)
[2023-11-29] MEDS: PROTONIX 40 MG PO (09:42)
[2023-11-29] MEDS: ELIQUIS 5 MG PO ×2 (09:42→21:07)
[2023-11-29] MEDS: DESENEX/MITRAZOL/ZEASORB 1 APPLIC TOPICAL ×2 (09:43→21:06)
[2023-11-29] MEDS: ZOLOFT 25 MG PO (09:55)
[2023-11-29] MEDS: KEPPRA PO (10:08)
[2023-11-29 12:00] VITALS: BP 163/106
[2023-11-29] MEDS: BENICAR 20 MG PO (12:18)
[2023-11-29] MEDS: SENOKOT 17.2 MG PO (12:18)
--- NOTE | 2023-11-29 14:51 | CM ---
entered order for discharge.
Spoke with Isha at [facility] she is aware and accepted back.will fax dc summary to [facility].
Spoke with Jaime son [phone] he said he will drive him back to [facility].
SPoke with Denise from [facility] pt is resumption . Pt accepted.
PLAN Home with resumption [facility] fax [phone]
fax dc summary to fax [facility] [phone]
[2023-11-29 15:45] VITALS: BP 160/90
[2023-11-29] MEDS: LIPITOR 40 MG PO (18:19)
[2023-11-29 19:00] VITALS: BP 152/88
[2023-11-29] MEDS: DESYREL 50 MG PO (21:07)
[2023-11-29] MEDS: ATIVAN 0.5 MG PO (21:07)
[2023-11-29] MEDS: KEPPRA 1000 MG PO (21:07)
[2023-11-29 23:00] VITALS: BP 158/81
[2023-11-30] VITALS (7 sets, daily range): BP systolic 154–182; BP diastolic 82–95
[2023-11-30 08:24] LABS: Hematocrit 44.1 % (39.0-52.0); Hemoglobin 14.4 g/dL (13.0-18.0); Mean Corp Hgb Conc. 32.7 g/dL (33.0-37.0); Mean Corpuscular Volume 88.9 fL (80.0-94.0); Mean Platelet Volume 10.3 fL (7.4-10.4); Platelet Count 204 10^3/uL (130-400); Red Blood Cell Count 4.96 10^6/uL (4.70-6.10); Red Cell Dist. Width 15.2 % (11.5-14.5); White Blood Cell Count 10.2 10^3/uL (4.8-10.8)
[2023-11-30 08:44] LABS: Blood Urea Nitrogen 13 mg/dl (9-20); Calcium 8.8 mg/dl (8.4-10.2); Carbon Dioxide 27 mmol/L (22-30); Chloride 101 mmol/L (98-107); Estimated Creatinine Clearance 110 ml/min; Glucose 77 mg/dl (70-99); Potassium 3.6 mmol/L (3.5-5.1); Sodium 142 mmol/L (135-145); eGFR > 60.00
--- NOTE | 2023-11-30 09:11 | W.PN.HOSP.TC ---
Today's Communication/Plan
-
Cardiology consult. 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
Assessment / Plan
Assessment / Plan
Physical exam:
General: Acute on chronically ill
HEENT: Normocephalic, Atraumatic and Moist Mucous Membranes
Respiratory: Clear to Auscultation; Negative Wheezes, Rales or Rhonchi
Cardiac: Regular Rhythm and S1/S2
GI: Soft, Nontender and Nondistended
Musculoskeletal: No Clubbing, No Cyanosis and No Edema
Neuro: Awake, Alert and Oriented, no neuro-deficits
Psych: Calm
A/P:
# Metabolic encephalopathy due to seizures
-Head CT negative. MRI of the brain negative for stroke.
-Discussed with neurology and he is cleared for discharge today.
-Aspirin 81 Mg can stop today. Restart Eliquis
-Obtained MRI and EEG
-UA negative
-Head neck CTA with impression of No acute major branch vessel occlusion or dissection identified.
3. 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 There is less than 50% narrowing of the proximal right extracranial internal carotid artery. There is approximately 60% narrowing of the intracranial right internal carotid
artery related to calcific plaque formation.
4. Interval partial recanalization of the P2 segment right posterior cerebral with a residual high-grade stenosis. There is severe narrowing of the left posterior cerebral artery P2 segment. There was significant narrowing identified on the prior
examination.
5. Interstitial edema and small right pleural effusion.
-neuro following patient
-keppra continued
#Bradycardia
Cardiology consult for further advice
Twelve-lead EKG
Continue cardiac monitoring
#Exposure to COVID-19 patient
Tested for COVID-19 and is negative
# Metabolic acidosis likely from seizures
-CO2 14
-TM
# Primary hypertension
-olmesartan continued
-Add IV hydralazine as needed
#HLD
-statin continued
#anxiety
-lorazepam continued
-sertraline continued
-trazodone for sleep
#GERD
-PPI continued
# Nodular contour of liver-patient aware about ultrasound of the outpatient
# Adrenal nodule-MRI/CT of the adrenal glands as outpatient
# permanent atrial fib
-Mild bradycardia and cardiac pauses overnight but not to the extent that needs any further treatment at the moment. Twelve-lead EKG this morning unremarkable. Continue cardiac monitoring and if cardiac process recur or more pronounced then
consider cardio eval
-Monitor on cardiac telemetry
-resume eliquis
-EKG with atrial fib
# Morbid obesity
# Chronic venous wound bilateral lower extremity
-- Both legs are swollen red, ulceration looked red erythematous with soaked gauze on some
-wound care consulted
# Chronic ambulatory dysfunction. Uses cane
-PT/OT consult
# History of prostate cancer
# DVT prophylaxis-Eliquis
#CODE status
-full code
Anticipated Discharge: 24 - 48 hours
Subjective/Interval History
-
Date of Service: November 30, 2023
Patient having episodes of bradycardia. Blood pressure also slightly elevated. Mental status seems improving.
Objective Data
-
Labs:
Laboratory Results
11/30/23
05:06
WBC 10.2
Hgb 14.4
Hct 44.1
Plt Count 204
Sodium 142
Potassium 3.6
Chloride 101
Carbon Dioxide 27
BUN 13
Creatinine 0.7
Glucose 77
Calcium 8.8
Vital Signs:
Vital Signs
Temp Pulse Resp BP Pulse Ox
97.5 F 65 18 178/93 97
11/30/23 08:00 11/30/23 08:00 11/30/23 08:00 11/30/23 08:00 11/30/23 08:00
I&O
11/29/23 11/30/23 12/01/23
06:59 06:59 06:59
Intake Total 960 / 960 1670 / 1670
Output Total 2224 / 2224
Balance 960 / 960 -555 / -555
[2023-11-30] MEDS: PROTONIX 40 MG PO (09:42)
[2023-11-30] MEDS: CLARITIN 10 MG PO (09:43)
[2023-11-30] MEDS: ZOLOFT 25 MG PO (09:43)
[2023-11-30] MEDS: COLACE 100 MG PO ×2 (09:43→20:04)
[2023-11-30] MEDS: ELIQUIS 5 MG PO ×2 (09:43→20:04)
[2023-11-30] MEDS: KEPPRA 1000 MG PO ×2 (09:43→20:04)
[2023-11-30] MEDS: DESENEX/MITRAZOL/ZEASORB TOPICAL ×2 (09:44→20:04)
[2023-11-30] MEDS: APRESOLINE 10 MG IV ×3 (11:41→22:58)
--- NOTE | 2023-11-30 13:17 | CON.CAR ---
Addendum entered and electronically signed by Valentino Hernandez MD 11/30/23 14:33:
I saw and examined the patient.
FP PGY 2 note was reviewed and I agree with the note.
77-year-old male with atrial fibrillation status post CVA has been maintained on Eliquis. Patient admitted with metabolic encephalopathy and suspected seizure. Apparently patient had some confusion followed by unresponsiveness. No clear report of
syncope. Patient's been admitted by the hospitalist and then seen by neurology in consultation. Remains on Keppra
. Asked to assess for bradycardia and brief pauses on telemetry. Patient has a known history of atrial fibrillation with slow ventricular response as was documented on prior ECG back in June. ECG and heart rate are similar on the ECGs review of
telemetry shows brief pauses up to 2.2 seconds but no longer pauses. Patient on no rate slowing medication.
-At this point he appears to have asymptomatic bradycardia.
-No indication for pacing
-No additional changes in treatment required.
-Will also review with primary team if there is any uncertainty regarding the seizure diagnosis then could consider additional outpatient cardiac monitoring with a 2-week patch monitor.
-Please call if additional assistance required
Original Note:
Consultation
Consultation Request
Date/Time Consultation Requested: 11/30/2023
Date/Time Consultation Performed: 11/30/2023
Reason for Consultation: Cardiac pauses on telemetry
Medical History
-
Chief Complaint: Cardiac pauses on telemetry
History of Present Illness:
This is a 77-year-old male with past medical history permanent A-fib s/p CVA 2023 on Eliquis who has been in the hospital over the past 3 days for metabolic encephalopathy secondary to seizures. CT/MRI/CTA all unremarkable. Cleared by neurology
with initial plans for discharge yesterday. Two nights ago, it was noted that patient was having 2-second pauses on telemetry, with mild bradycardia, although patient was asymptomatic. Evaluation with EKG today A-fib with slow ventricular
response. We are asked to evaluate from a cardiology standpoint. Today, patient denies lightheadedness, dizziness, syncopal episodes. He denies chest pain, shortness of breath, palpitations.
Past Medical History
Past Medical History: Other (Permanent A-fib, hypertension, hyperlipidemia, prior CVA 2023)
Social History
Tobacco: Non-Smoker
Alcohol: None
Drug: None
Personal: Single
Living: Assisted Living
Family History
Family History: Reviewed & Not Pertinent
Allergies / Home Medications
Allergy/AdvReac Type Severity Reaction Status Date / Time
No Known Allergies Allergy Verified 07/11/23 14:05
�Medication �Instructions �Recorded �Confirmed �Type
miconazole nitrate 2 % topical 1 applic topical BID b/l groin 07/11/23 11/27/23 History
powder (Desenex)
acetaminophen 500 mg tablet 1,000 mg (2 x 500 mg) PO BIDPRN 07/29/23 11/27/23 Rx
PRN mild pain 30 days #100 tabs
apixaban 5 mg tablet (Eliquis) 5 mg PO BID 30 days #60 tabs 07/29/23 11/27/23 Rx
ascorbic acid (vitamin C) 500 mg 500 mg PO DAILY Supplement 30 days 07/29/23 11/27/23 Rx
tablet (Vitamin C) #30 tabs
atorvastatin 40 mg tablet 40 mg PO QPM High cholesterol 30 07/29/23 11/27/23 Rx
days #30 tabs
bisacodyl 5 mg tablet,delayed 10 mg (2 x 5 mg) PO DAILYPRN PRN 07/29/23 11/27/23 Rx
release constipation 30 days #60 tabs
cholecalciferol (vitamin D3) 125 125 mcg PO DAILY supplement 30 07/29/23 11/27/23 Rx
mcg (5,000 unit) tablet days #30 tabs
docusate sodium 100 mg capsule 100 mg PO BID cosntipation 30 days 07/29/23 11/27/23 Rx
#60 caps
loratadine 10 mg tablet 10 mg PO DAILY pruritis 30 days 07/29/23 11/27/23 Rx
#30 tabs
multivitamin with folic acid 400 1 tab PO DAILY Supplement 30 days 07/29/23 11/27/23 Rx
mcg tablet (Tab-A-Kris) #30 tabs
olmesartan 20 mg tablet 20 mg PO NOON blood pressure 30 07/29/23 11/27/23 Rx
days #30 tabs
pantoprazole 40 mg tablet,delayed 40 mg PO DAILY GERD 30 days #30 07/29/23 11/27/23 Rx
release tabs
sennosides 8.6 mg tablet (Senna 17.2 mg (2 x 8.6 mg) PO NOON 07/29/23 11/27/23 Rx
Laxative) constipation 30 days #60 tabs
lorazepam 0.5 mg tablet 0.5 mg PO BIDPRN PRN ANXIETY 11/27/23 11/27/23 History
lorazepam 0.5 mg tablet 0.5 mg PO HS ANXIETY 11/27/23 11/27/23 History
sertraline 25 mg tablet 25 mg PO DAILY depression/anxiety 11/27/23 11/27/23 History
trazodone 50 mg tablet 50 mg PO HS insomnia 11/27/23 11/27/23 History
levetiracetam 500 mg tablet 1,000 mg (2 x 500 mg) PO BID 30 11/29/23 Rx
days #120 tabs
Review of Systems
-
All other systems: Negative unless noted
Physical Exam
Vital Signs
Temp Pulse Resp BP Pulse Ox
97.9 F 62 18 166/82 98
11/30/23 12:00 11/30/23 12:00 11/30/23 12:00 11/30/23 12:00 11/30/23 12:00
Lab Results
11/30/23 05:06
11/30/23 05:06
Physical Exam
General: No Apparent Distress
Respiratory: Clear
Cardiac: S1/S2 and Irregular Rhythm
Neuro: Awake, Alert, Oriented and AO x 3
Impression / Plan
-
Impression/plan
-Asymptomatic bradycardia
-On review of telemetry, cardiac pauses in the range of 2.3 seconds
-Repeat EKG today with A-fib close slow ventricular response
Reviewed patient's medications, noncontributory. As patient is asymptomatic, will continue to monitor.
Check TSH.
Permanent atrial fibrillation
Rate controlled, although not on rate control meds
Continue on Eliquis
[2023-11-30] MEDS: SENOKOT PO (13:50)
[2023-11-30] MEDS: BENICAR 20 MG PO (13:51)
[2023-11-30 14:45] LABS: TSH 1.43 uIU/ml (0.47-4.68)
[2023-11-30] MEDS: LIPITOR 40 MG PO (17:07)
[2023-11-30] MEDS: DESYREL 50 MG PO (21:21)
[2023-11-30] MEDS: ATIVAN 0.5 MG PO (21:21)
[2023-11-30] MEDS: TYLENOL 650 MG PO (21:25)
[2023-12-01 00:30] VITALS: BP 161/98
[2023-12-01 03:00] VITALS: BP 158/89
[2023-12-01 08:21] VITALS: BP 162/92
[2023-12-01] MEDS: ELIQUIS 5 MG PO (09:11)
[2023-12-01] MEDS: COLACE 100 MG PO (09:11)
[2023-12-01] MEDS: PROTONIX 40 MG PO (09:11)
[2023-12-01] MEDS: KEPPRA 1000 MG PO (09:11)
[2023-12-01] MEDS: CLARITIN 10 MG PO (09:11)
[2023-12-01] MEDS: ZOLOFT 25 MG PO (09:12)
[2023-12-01] MEDS: DESENEX/MITRAZOL/ZEASORB 1 APPLIC TOPICAL (09:18)
--- NOTE | 2023-12-01 10:34 | W.PN.HOSP.TC ---
Today's Communication/Plan
-
Discharge planning today.
Assessment / Plan
Assessment / Plan
Physical exam:
General: Acute on chronically ill
HEENT: Normocephalic, Atraumatic and Moist Mucous Membranes
Respiratory: Clear to Auscultation; Negative Wheezes, Rales or Rhonchi
Cardiac: Regular Rhythm and S1/S2
GI: Soft, Nontender and Nondistended
Musculoskeletal: No Clubbing, No Cyanosis and No Edema
Neuro: Awake, Alert and Oriented, no neuro-deficits
Psych: Calm
A/P:
# Metabolic encephalopathy due to seizures
-Head CT negative. MRI of the brain negative for stroke.
-Discussed with neurology and he is cleared for discharge today.
-Aspirin 81 Mg can stop today. Restart Eliquis
-Obtained MRI and EEG
-UA negative
-Head neck CTA with impression of No acute major branch vessel occlusion or dissection identified.
3. 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 There is less than 50% narrowing of the proximal right extracranial internal carotid artery. There is approximately 60% narrowing of the intracranial right internal carotid
artery related to calcific plaque formation.
4. Interval partial recanalization of the P2 segment right posterior cerebral with a residual high-grade stenosis. There is severe narrowing of the left posterior cerebral artery P2 segment. There was significant narrowing identified on the prior
examination.
5. Interstitial edema and small right pleural effusion.
-neuro following patient
-keppra continued
#Bradycardia
Cardiology consult for further advice and they cleared him for discharge. Discussed with cardiology today.
Twelve-lead EKG
Continue cardiac monitoring
#Exposure to COVID-19 patient
Tested for COVID-19 and is negative
# Metabolic acidosis likely from seizures
-CO2 14
-TM
# Primary hypertension
-olmesartan continued
-Add IV hydralazine as needed
#HLD
-statin continued
#anxiety
-lorazepam continued
-sertraline continued
-trazodone for sleep
#GERD
-PPI continued
# Nodular contour of liver-patient aware about ultrasound of the outpatient
# Adrenal nodule-MRI/CT of the adrenal glands as outpatient
# permanent atrial fib
-Mild bradycardia and cardiac pauses overnight but not to the extent that needs any further treatment at the moment. Twelve-lead EKG this morning unremarkable. Continue cardiac monitoring and if cardiac process recur or more pronounced then
consider cardio eval
-Monitor on cardiac telemetry
-resume eliquis
-EKG with atrial fib
# Morbid obesity
# Chronic venous wound bilateral lower extremity
-- Both legs are swollen red, ulceration looked red erythematous with soaked gauze on some
-wound care consulted
# Chronic ambulatory dysfunction. Uses cane
-PT/OT consult
# History of prostate cancer
# DVT prophylaxis-Eliquis
#CODE status
-full code
Anticipated Discharge: Today
Subjective/Interval History
-
Date of Service: December 01, 2023
No new complaints. Mental status stable. No issues with heart rate.
Objective Data
-
Vital Signs:
Vital Signs
Temp Pulse Resp BP Pulse Ox
97.4 F 67 16 162/92 99
12/01/23 08:21 12/01/23 08:21 12/01/23 08:21 12/01/23 08:21 12/01/23 08:21
I&O
11/30/23 12/01/23 12/02/23
06:59 06:59 06:59
Intake Total 1670 / 1670 1440 / 1440
Output Total 2225 / 2225 3125 / 3125
Balance -555 / -555 -1685 / -1685
--- NOTE | 2023-12-01 11:34 | CM ---
entered order for discharge.
Reviewed IMM with pt he agrees with dc.
[facility] with [facility] is aware and accepted back.will fax dc summary to [facility].
Spoke with Jaime son [phone] he said he will drive him back to [facility].
[facility] pt is resumption . Pt accepted.
PLAN Home with resumption [facility] fax [phone]
fax dc summary to fax [facility] [phone]
[2023-12-01 11:49] VITALS: BP 147/79
--- NOTE | 2023-12-01 12:03 | W.DCSUMMARY ---
Discharge Summary
Discharge Data
Date of Admission: 11/27/23
Date of Discharge: 12/01/23
-
Pending Results: No
Hospital Course
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
ulcers, TATIANA, obesity presented to the hospital acute onset of mental status changes. Neurology consulted. He had MRI of the brain that shows no acute stroke but shows evidence of chronic changes as expected. Neurology felt his presentation was
related to seizures. He was started on antiseizure medications and he tolerated well. He did have mild delirium that resolved. He also had some cardiac pauses for which cardiology evaluated him and felt that this was not significant at the moment
and he can follow-up with cardiology as outpatient. Otherwise, patient hemodynamically stable and eager to go back to his assisted living facility. He has been discharged in stable condition today.
Discharge duration: 35 minutes
Discharge Plan
-
Patient Disposition: Assisted Living
Discharge Diagnosis/Procedures: Seizures. 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
Diet: Low Cholesterol
Activity: As tolerated
Blood Work: Please PCP to order CBC, CMP within 1 week
Referrals:
Primary care, provider [Other] (See less than 1 week)
Kimi Mcclelland, DO [Active] - in two to three weeks
Prescriptions:
New
levetiracetam 500 mg Tablet
1,000 mg PO BID 30 Days Qty: 120 0RF
Continued
miconazole nitrate [Desenex] 2 % Powder
1 applic TOPICAL BID
lorazepam 0.5 mg Tablet
0.5 mg PO HS
lorazepam 0.5 mg Tablet
0.5 mg PO BIDPRN PRN (Reason: ANXIETY)
sertraline 25 mg Tablet
25 mg PO DAILY
trazodone 50 mg tablet
50 mg PO HS
loratadine 10 mg Tablet
10 mg PO DAILY 30 Days Qty: 30 0RF
docusate sodium 100 mg Capsule
100 mg PO BID 30 Days Qty: 60 0RF
bisacodyl 5 mg Tablet,Delayed Release (Dr/Ec)
10 mg PO DAILYPRN PRN (Reason: constipation) 30 Days Qty: 60 0RF
Eliquis 5 mg Tablet
5 mg PO BID 30 Days Qty: 60 0RF
sennosides [Senna Laxative] 8.6 mg Tablet
17.2 mg PO NOON 30 Days Qty: 60 0RF
pantoprazole 40 mg Tablet,Delayed Release (Dr/Ec)
40 mg PO DAILY 30 Days Qty: 30 0RF
olmesartan 20 mg Tablet
20 mg PO NOON 30 Days Qty: 30 0RF
multivitamin with folic acid [Tab-A-Kris] 400 mcg Tablet
1 tab PO DAILY 30 Days Qty: 30 0RF
ascorbic acid (vitamin C) [Vitamin C] 500 mg Tablet
500 mg PO DAILY 30 Days Qty: 30 0RF
cholecalciferol (vitamin D3) 125 mcg (5,000 unit) Tablet
125 mcg PO DAILY 30 Days Qty: 30 0RF
atorvastatin 40 mg Tablet
40 mg PO QPM 30 Days Qty: 30 0RF
acetaminophen 500 mg tablet
1,000 mg PO BIDPRN PRN (Reason: mild pain) 30 Days Qty: 100 0RF
Discontinued
meloxicam [Mobic] 15 mg Tablet
15 mg PO DAILY
Discharge Orders:
Discharge Patient (As Directed); Ordered 12/01/23
Ordered By: Trace Ron
Discharge Date and Time
Discharge Date/Time: 12/01/23 13:40
Print Language: ANGOLAN
[2023-12-01] MEDS: SENOKOT 17.2 MG PO (13:03)
[2023-12-01] MEDS: BENICAR 20 MG PO (13:03)
== END 2023-12-01 13:40 | disposition home or self-care (01) | DRG 100 ==
LOC: 3 WEST ACU 15:14
PROVIDERS: Registered Nurse; ADMITTING PHYSICIAN Hospitalist; CONSULT PHYSICIAN Internal Medicine Cardiovascular Disease; CONSULT PHYSICIAN Psychiatry & Neurology Neurology; EMERGENCY PHYSICIAN Emergency Medicine
DX: G40.89 Other seizures (principal); G93.41 Metabolic encephalopathy; E87.20 Acidosis, unspecified; I48.21 Permanent atrial fibrillation; L97.819 Non-pressure chronic ulcer of other part of right lower leg with unspecified severity; L97.829 Non-pressure chronic ulcer of other part of left lower leg with unspecified severity; R41.4 Neurologic neglect syndrome; F05 Delirium due to known physiological condition; I66.22 Occlusion and stenosis of left posterior cerebral artery; F32.A Depression, unspecified; E11.9 Type 2 diabetes mellitus without complications; I10 Essential (primary) hypertension; I65.01 Occlusion and stenosis of right vertebral artery; I65.22 Occlusion and stenosis of left carotid artery; E66.01 Morbid (severe) obesity due to excess calories; Z68.39 Body mass index [BMI] 39.0-39.9, adult; G93.89 Other specified disorders of brain; E27.8 Other specified disorders of adrenal gland; I83.018 Varicose veins of right lower extremity with ulcer other part of lower leg; I83.028 Varicose veins of left lower extremity with ulcer other part of lower leg; E78.1 Pure hyperglyceridemia; G47.00 Insomnia, unspecified; F41.9 Anxiety disorder, unspecified; G47.33 Obstructive sleep apnea (adult) (pediatric); R00.1 Bradycardia, unspecified; R26.2 Difficulty in walking, not elsewhere classified; K21.9 Gastro-esophageal reflux disease without esophagitis; K59.00 Constipation, unspecified; E55.9 Vitamin D deficiency, unspecified; L29.9 Pruritus, unspecified; Z79.01 Long term (current) use of anticoagulants; Z79.84 Long term (current) use of oral hypoglycemic drugs; Z79.899 Other long term (current) drug therapy; Z85.46 Personal history of malignant neoplasm of prostate; Z86.73 Personal history of transient ischemic attack (TIA), and cerebral infarction without residual deficits; Z96.652 Presence of left artificial knee joint
CPT/HCPCS: 70450; 70496; 70498; 70551; 71046; 80048; 80053; 80061; 80143; 80306; 80307; 81003; 81015; 82962; 83036; 83735; 84443; 85027; 87070; 87811; 92610; 93005; 95816; 96374; 97163; 97166; 99285; Q9967

== ENCOUNTER → 2023-12-03 14:27 | Outpatient (REF) | payer MEDICARE, SELFPAY | LOC: WOUND 14:27 | PROVIDERS: ATTENDING PHYSICIAN Surgery; FAMILY PHYSICIAN Hospitalist | DX: I87.313 Chronic venous hypertension (idiopathic) with ulcer of bilateral lower extremity (principal); L97.812 Non-pressure chronic ulcer of other part of right lower leg with fat layer exposed; L97.822 Non-pressure chronic ulcer of other part of left lower leg with fat layer exposed; L97.212 Non-pressure chronic ulcer of right calf with fat layer exposed; L97.222 Non-pressure chronic ulcer of left calf with fat layer exposed; L97.322 Non-pressure chronic ulcer of left ankle with fat layer exposed; L97.512 Non-pressure chronic ulcer of other part of right foot with fat layer exposed; I87.2 Venous insufficiency (chronic) (peripheral); R26.2 Difficulty in walking, not elsewhere classified; Z79.01 Long term (current) use of anticoagulants | CPT/HCPCS: 29580 ==

== ENCOUNTER → 2023-12-11 14:22 | Outpatient (REF) | payer MEDICARE, SELFPAY | LOC: WOUND 14:22 | PROVIDERS: ATTENDING PHYSICIAN Surgery; FAMILY PHYSICIAN Hospitalist | DX: I87.313 Chronic venous hypertension (idiopathic) with ulcer of bilateral lower extremity (principal); L97.812 Non-pressure chronic ulcer of other part of right lower leg with fat layer exposed; L97.822 Non-pressure chronic ulcer of other part of left lower leg with fat layer exposed; L97.212 Non-pressure chronic ulcer of right calf with fat layer exposed; L97.222 Non-pressure chronic ulcer of left calf with fat layer exposed; L97.322 Non-pressure chronic ulcer of left ankle with fat layer exposed; L97.512 Non-pressure chronic ulcer of other part of right foot with fat layer exposed; I87.2 Venous insufficiency (chronic) (peripheral); Z79.01 Long term (current) use of anticoagulants; R26.2 Difficulty in walking, not elsewhere classified; Z86.73 Personal history of transient ischemic attack (TIA), and cerebral infarction without residual deficits | CPT/HCPCS: 29580 ==

== ENCOUNTER → 2023-12-18 12:58 | Outpatient (REF) | payer MEDICARE, SELFPAY | LOC: WOUND 12:58 | PROVIDERS: ATTENDING PHYSICIAN Surgery; FAMILY PHYSICIAN Hospitalist | DX: I87.313 Chronic venous hypertension (idiopathic) with ulcer of bilateral lower extremity (principal); L97.812 Non-pressure chronic ulcer of other part of right lower leg with fat layer exposed; L97.822 Non-pressure chronic ulcer of other part of left lower leg with fat layer exposed; L97.212 Non-pressure chronic ulcer of right calf with fat layer exposed; L97.222 Non-pressure chronic ulcer of left calf with fat layer exposed; L97.322 Non-pressure chronic ulcer of left ankle with fat layer exposed; L97.512 Non-pressure chronic ulcer of other part of right foot with fat layer exposed; I87.2 Venous insufficiency (chronic) (peripheral); R26.2 Difficulty in walking, not elsewhere classified; Z79.01 Long term (current) use of anticoagulants | CPT/HCPCS: 29580 ==

== ENCOUNTER → 2023-12-24 11:28 | Outpatient (REF) | payer MEDICARE, BC, SELFPAY | LOC: WOUND 11:28 | PROVIDERS: ATTENDING PHYSICIAN Surgery; FAMILY PHYSICIAN Psychiatry & Neurology Neurology | DX: I87.313 Chronic venous hypertension (idiopathic) with ulcer of bilateral lower extremity (principal); L97.812 Non-pressure chronic ulcer of other part of right lower leg with fat layer exposed; L97.822 Non-pressure chronic ulcer of other part of left lower leg with fat layer exposed; L97.212 Non-pressure chronic ulcer of right calf with fat layer exposed; L97.222 Non-pressure chronic ulcer of left calf with fat layer exposed; L97.322 Non-pressure chronic ulcer of left ankle with fat layer exposed; L97.512 Non-pressure chronic ulcer of other part of right foot with fat layer exposed; I87.2 Venous insufficiency (chronic) (peripheral); R26.2 Difficulty in walking, not elsewhere classified; Z86.73 Personal history of transient ischemic attack (TIA), and cerebral infarction without residual deficits; Z79.01 Long term (current) use of anticoagulants | CPT/HCPCS: 29581; 99213 ==

== ENCOUNTER → 2023-12-31 13:03 | Outpatient (REF) | payer MEDICARE, BC, SELFPAY | LOC: WOUND 13:03 | PROVIDERS: ATTENDING PHYSICIAN Surgery; FAMILY PHYSICIAN Hospitalist | DX: I87.313 Chronic venous hypertension (idiopathic) with ulcer of bilateral lower extremity (principal); L97.812 Non-pressure chronic ulcer of other part of right lower leg with fat layer exposed; L97.822 Non-pressure chronic ulcer of other part of left lower leg with fat layer exposed; L97.212 Non-pressure chronic ulcer of right calf with fat layer exposed; L97.222 Non-pressure chronic ulcer of left calf with fat layer exposed; L97.322 Non-pressure chronic ulcer of left ankle with fat layer exposed; L97.512 Non-pressure chronic ulcer of other part of right foot with fat layer exposed; I87.2 Venous insufficiency (chronic) (peripheral); R26.2 Difficulty in walking, not elsewhere classified; Z79.01 Long term (current) use of anticoagulants; Z86.73 Personal history of transient ischemic attack (TIA), and cerebral infarction without residual deficits | CPT/HCPCS: 29581 ==

== ENCOUNTER → 2024-01-06 12:56 | Outpatient (REF) | payer MEDICARE, BC, SELFPAY | LOC: WOUND 12:56 | PROVIDERS: ATTENDING PHYSICIAN Surgery | DX: I87.313 Chronic venous hypertension (idiopathic) with ulcer of bilateral lower extremity (principal); L97.812 Non-pressure chronic ulcer of other part of right lower leg with fat layer exposed; L97.822 Non-pressure chronic ulcer of other part of left lower leg with fat layer exposed; L97.212 Non-pressure chronic ulcer of right calf with fat layer exposed; L97.222 Non-pressure chronic ulcer of left calf with fat layer exposed; L97.322 Non-pressure chronic ulcer of left ankle with fat layer exposed; L97.512 Non-pressure chronic ulcer of other part of right foot with fat layer exposed; I87.2 Venous insufficiency (chronic) (peripheral); R26.2 Difficulty in walking, not elsewhere classified; Z86.73 Personal history of transient ischemic attack (TIA), and cerebral infarction without residual deficits | CPT/HCPCS: 29581; 99213 ==

== ENCOUNTER → 2024-01-14 11:25 | Outpatient (REF) | payer MEDICARE, BC, SELFPAY | LOC: WOUND 11:25 | PROVIDERS: ATTENDING PHYSICIAN Surgery; FAMILY PHYSICIAN Hospitalist | DX: I87.313 Chronic venous hypertension (idiopathic) with ulcer of bilateral lower extremity (principal); L97.812 Non-pressure chronic ulcer of other part of right lower leg with fat layer exposed; L97.822 Non-pressure chronic ulcer of other part of left lower leg with fat layer exposed; L97.212 Non-pressure chronic ulcer of right calf with fat layer exposed; L97.222 Non-pressure chronic ulcer of left calf with fat layer exposed; L97.322 Non-pressure chronic ulcer of left ankle with fat layer exposed; I87.2 Venous insufficiency (chronic) (peripheral); R26.2 Difficulty in walking, not elsewhere classified; Z86.73 Personal history of transient ischemic attack (TIA), and cerebral infarction without residual deficits | CPT/HCPCS: 29581; 99213 ==

== ENCOUNTER → 2024-01-21 14:54 | Outpatient (REF) | payer MEDICARE, BC, SELFPAY | LOC: WOUND 14:54 | PROVIDERS: ATTENDING PHYSICIAN Surgery; FAMILY PHYSICIAN Hospitalist | DX: I87.313 Chronic venous hypertension (idiopathic) with ulcer of bilateral lower extremity (principal); L97.812 Non-pressure chronic ulcer of other part of right lower leg with fat layer exposed; L97.822 Non-pressure chronic ulcer of other part of left lower leg with fat layer exposed; L97.212 Non-pressure chronic ulcer of right calf with fat layer exposed; L97.222 Non-pressure chronic ulcer of left calf with fat layer exposed; L97.322 Non-pressure chronic ulcer of left ankle with fat layer exposed; L97.512 Non-pressure chronic ulcer of other part of right foot with fat layer exposed; I87.2 Venous insufficiency (chronic) (peripheral); Z79.01 Long term (current) use of anticoagulants; R26.2 Difficulty in walking, not elsewhere classified; Z86.73 Personal history of transient ischemic attack (TIA), and cerebral infarction without residual deficits | CPT/HCPCS: 29581; 99213 ==

== ENCOUNTER → 2024-01-29 12:12 | Outpatient (REF) | payer MEDICARE, BC, SELFPAY | LOC: WOUND 12:12 | PROVIDERS: ATTENDING PHYSICIAN Surgery; FAMILY PHYSICIAN Hospitalist | DX: I87.313 Chronic venous hypertension (idiopathic) with ulcer of bilateral lower extremity (principal); L97.812 Non-pressure chronic ulcer of other part of right lower leg with fat layer exposed; L97.822 Non-pressure chronic ulcer of other part of left lower leg with fat layer exposed; L97.212 Non-pressure chronic ulcer of right calf with fat layer exposed; L97.222 Non-pressure chronic ulcer of left calf with fat layer exposed; L97.322 Non-pressure chronic ulcer of left ankle with fat layer exposed; L97.512 Non-pressure chronic ulcer of other part of right foot with fat layer exposed; I87.2 Venous insufficiency (chronic) (peripheral); Z79.01 Long term (current) use of anticoagulants; Z86.73 Personal history of transient ischemic attack (TIA), and cerebral infarction without residual deficits | CPT/HCPCS: 29581 ==

== ENCOUNTER → 2024-02-04 11:21 | Outpatient (REF) | payer MEDICARE, BC, SELFPAY | LOC: WOUND 11:21 | PROVIDERS: ATTENDING PHYSICIAN Surgery; FAMILY PHYSICIAN Hospitalist | DX: I87.313 Chronic venous hypertension (idiopathic) with ulcer of bilateral lower extremity (principal); L97.812 Non-pressure chronic ulcer of other part of right lower leg with fat layer exposed; L97.822 Non-pressure chronic ulcer of other part of left lower leg with fat layer exposed; L97.212 Non-pressure chronic ulcer of right calf with fat layer exposed; L97.222 Non-pressure chronic ulcer of left calf with fat layer exposed; L97.322 Non-pressure chronic ulcer of left ankle with fat layer exposed; L97.512 Non-pressure chronic ulcer of other part of right foot with fat layer exposed; I87.2 Venous insufficiency (chronic) (peripheral); R26.2 Difficulty in walking, not elsewhere classified; Z79.01 Long term (current) use of anticoagulants; Z86.73 Personal history of transient ischemic attack (TIA), and cerebral infarction without residual deficits | CPT/HCPCS: 29581 ==

== ENCOUNTER → 2024-02-11 11:28 | Outpatient (REF) | payer MEDICARE, BC, SELFPAY | LOC: WOUND 11:28 | PROVIDERS: ATTENDING PHYSICIAN Surgery; FAMILY PHYSICIAN Hospitalist | DX: I87.313 Chronic venous hypertension (idiopathic) with ulcer of bilateral lower extremity (principal); L97.812 Non-pressure chronic ulcer of other part of right lower leg with fat layer exposed; L97.822 Non-pressure chronic ulcer of other part of left lower leg with fat layer exposed; L97.212 Non-pressure chronic ulcer of right calf with fat layer exposed; L97.222 Non-pressure chronic ulcer of left calf with fat layer exposed; L97.322 Non-pressure chronic ulcer of left ankle with fat layer exposed; L97.512 Non-pressure chronic ulcer of other part of right foot with fat layer exposed; I87.2 Venous insufficiency (chronic) (peripheral); Z79.01 Long term (current) use of anticoagulants; R26.2 Difficulty in walking, not elsewhere classified; Z86.73 Personal history of transient ischemic attack (TIA), and cerebral infarction without residual deficits | CPT/HCPCS: 29581 ==

== ENCOUNTER → 2024-02-18 11:28 | Outpatient (REF) | payer MEDICARE, BC, SELFPAY | LOC: WOUND 11:28 | PROVIDERS: ATTENDING PHYSICIAN Surgery; FAMILY PHYSICIAN Hospitalist | DX: I87.313 Chronic venous hypertension (idiopathic) with ulcer of bilateral lower extremity (principal); L97.812 Non-pressure chronic ulcer of other part of right lower leg with fat layer exposed; L97.822 Non-pressure chronic ulcer of other part of left lower leg with fat layer exposed; L97.212 Non-pressure chronic ulcer of right calf with fat layer exposed; L97.222 Non-pressure chronic ulcer of left calf with fat layer exposed; L97.322 Non-pressure chronic ulcer of left ankle with fat layer exposed; L97.512 Non-pressure chronic ulcer of other part of right foot with fat layer exposed; I87.2 Venous insufficiency (chronic) (peripheral); R26.2 Difficulty in walking, not elsewhere classified; Z86.73 Personal history of transient ischemic attack (TIA), and cerebral infarction without residual deficits; Z79.01 Long term (current) use of anticoagulants | CPT/HCPCS: 29581; 99213 ==

== ENCOUNTER → 2024-02-25 11:25 | Outpatient (REF) | payer MEDICARE, BC, SELFPAY | LOC: WOUND 11:25 | PROVIDERS: ATTENDING PHYSICIAN Surgery; FAMILY PHYSICIAN Hospitalist | DX: I87.313 Chronic venous hypertension (idiopathic) with ulcer of bilateral lower extremity (principal); L97.812 Non-pressure chronic ulcer of other part of right lower leg with fat layer exposed; L97.822 Non-pressure chronic ulcer of other part of left lower leg with fat layer exposed; L97.212 Non-pressure chronic ulcer of right calf with fat layer exposed; L97.222 Non-pressure chronic ulcer of left calf with fat layer exposed; L97.322 Non-pressure chronic ulcer of left ankle with fat layer exposed; L97.512 Non-pressure chronic ulcer of other part of right foot with fat layer exposed; I87.2 Venous insufficiency (chronic) (peripheral); R26.2 Difficulty in walking, not elsewhere classified; Z79.01 Long term (current) use of anticoagulants; Z86.73 Personal history of transient ischemic attack (TIA), and cerebral infarction without residual deficits | CPT/HCPCS: 29581; 99213 ==

== ENCOUNTER → 2024-03-03 11:20 | Outpatient (REF) | payer MEDICARE, BC, SELFPAY | LOC: WOUND 11:20 | PROVIDERS: ATTENDING PHYSICIAN Surgery; FAMILY PHYSICIAN Hospitalist | DX: I87.313 Chronic venous hypertension (idiopathic) with ulcer of bilateral lower extremity (principal); L97.812 Non-pressure chronic ulcer of other part of right lower leg with fat layer exposed; L97.822 Non-pressure chronic ulcer of other part of left lower leg with fat layer exposed; L97.212 Non-pressure chronic ulcer of right calf with fat layer exposed; L97.222 Non-pressure chronic ulcer of left calf with fat layer exposed; L97.322 Non-pressure chronic ulcer of left ankle with fat layer exposed; L97.512 Non-pressure chronic ulcer of other part of right foot with fat layer exposed; I87.2 Venous insufficiency (chronic) (peripheral); Z79.01 Long term (current) use of anticoagulants; R26.2 Difficulty in walking, not elsewhere classified | CPT/HCPCS: 29581; 99213 ==

== ENCOUNTER → 2024-03-10 11:28 | Outpatient (REF) | payer MEDICARE, BC, SELFPAY | LOC: WOUND 11:28 | PROVIDERS: ATTENDING PHYSICIAN Surgery; FAMILY PHYSICIAN Hospitalist | DX: I87.313 Chronic venous hypertension (idiopathic) with ulcer of bilateral lower extremity (principal); L97.812 Non-pressure chronic ulcer of other part of right lower leg with fat layer exposed; L97.822 Non-pressure chronic ulcer of other part of left lower leg with fat layer exposed; L97.212 Non-pressure chronic ulcer of right calf with fat layer exposed; L97.222 Non-pressure chronic ulcer of left calf with fat layer exposed; L97.322 Non-pressure chronic ulcer of left ankle with fat layer exposed; L97.512 Non-pressure chronic ulcer of other part of right foot with fat layer exposed; I87.2 Venous insufficiency (chronic) (peripheral); R26.2 Difficulty in walking, not elsewhere classified; Z79.01 Long term (current) use of anticoagulants; Z86.73 Personal history of transient ischemic attack (TIA), and cerebral infarction without residual deficits | CPT/HCPCS: 29581; 99213 ==

== ENCOUNTER → 2024-03-17 11:22 | Outpatient (REF) | payer MEDICARE, BC, SELFPAY | LOC: WOUND 11:22 | PROVIDERS: ATTENDING PHYSICIAN Surgery; FAMILY PHYSICIAN Hospitalist | DX: I87.313 Chronic venous hypertension (idiopathic) with ulcer of bilateral lower extremity (principal); L97.812 Non-pressure chronic ulcer of other part of right lower leg with fat layer exposed; L97.822 Non-pressure chronic ulcer of other part of left lower leg with fat layer exposed; L97.212 Non-pressure chronic ulcer of right calf with fat layer exposed; L97.222 Non-pressure chronic ulcer of left calf with fat layer exposed; L97.322 Non-pressure chronic ulcer of left ankle with fat layer exposed; L97.512 Non-pressure chronic ulcer of other part of right foot with fat layer exposed; I87.2 Venous insufficiency (chronic) (peripheral); R26.2 Difficulty in walking, not elsewhere classified; Z79.01 Long term (current) use of anticoagulants; Z86.73 Personal history of transient ischemic attack (TIA), and cerebral infarction without residual deficits | CPT/HCPCS: 29581; 99213 ==

== ENCOUNTER → 2024-03-31 11:08 | Outpatient (REF) | payer MEDICARE, BC, SELFPAY | LOC: WOUND 11:08 | PROVIDERS: ATTENDING PHYSICIAN Surgery; FAMILY PHYSICIAN Hospitalist | DX: I87.313 Chronic venous hypertension (idiopathic) with ulcer of bilateral lower extremity (principal); L97.812 Non-pressure chronic ulcer of other part of right lower leg with fat layer exposed; L97.822 Non-pressure chronic ulcer of other part of left lower leg with fat layer exposed; L97.212 Non-pressure chronic ulcer of right calf with fat layer exposed; L97.222 Non-pressure chronic ulcer of left calf with fat layer exposed; L97.322 Non-pressure chronic ulcer of left ankle with fat layer exposed; L97.512 Non-pressure chronic ulcer of other part of right foot with fat layer exposed; I87.2 Venous insufficiency (chronic) (peripheral); R26.2 Difficulty in walking, not elsewhere classified; Z86.73 Personal history of transient ischemic attack (TIA), and cerebral infarction without residual deficits; Z79.01 Long term (current) use of anticoagulants | CPT/HCPCS: 29581; 99213 ==

== ENCOUNTER → 2024-04-07 10:53 | Outpatient (REF) | payer MEDICARE, BC, SELFPAY | LOC: WOUND 10:53 | PROVIDERS: ATTENDING PHYSICIAN Surgery; FAMILY PHYSICIAN Hospitalist | DX: I87.313 Chronic venous hypertension (idiopathic) with ulcer of bilateral lower extremity (principal); L97.812 Non-pressure chronic ulcer of other part of right lower leg with fat layer exposed; L97.822 Non-pressure chronic ulcer of other part of left lower leg with fat layer exposed; L97.212 Non-pressure chronic ulcer of right calf with fat layer exposed; L97.222 Non-pressure chronic ulcer of left calf with fat layer exposed; L97.322 Non-pressure chronic ulcer of left ankle with fat layer exposed; L97.512 Non-pressure chronic ulcer of other part of right foot with fat layer exposed; I87.2 Venous insufficiency (chronic) (peripheral); R26.2 Difficulty in walking, not elsewhere classified; Z79.01 Long term (current) use of anticoagulants; Z86.73 Personal history of transient ischemic attack (TIA), and cerebral infarction without residual deficits | CPT/HCPCS: 29581; 99213 ==

== ENCOUNTER → 2024-04-14 11:16 | Outpatient (REF) | payer MEDICARE, BC, SELFPAY | LOC: WOUND 11:16 | PROVIDERS: ATTENDING PHYSICIAN Surgery; FAMILY PHYSICIAN Psychiatry & Neurology Neurology | DX: I87.313 Chronic venous hypertension (idiopathic) with ulcer of bilateral lower extremity (principal); L97.812 Non-pressure chronic ulcer of other part of right lower leg with fat layer exposed; L97.822 Non-pressure chronic ulcer of other part of left lower leg with fat layer exposed; L97.212 Non-pressure chronic ulcer of right calf with fat layer exposed; L97.222 Non-pressure chronic ulcer of left calf with fat layer exposed; L97.322 Non-pressure chronic ulcer of left ankle with fat layer exposed; L97.512 Non-pressure chronic ulcer of other part of right foot with fat layer exposed; I87.2 Venous insufficiency (chronic) (peripheral); R26.2 Difficulty in walking, not elsewhere classified; Z86.73 Personal history of transient ischemic attack (TIA), and cerebral infarction without residual deficits; Z79.01 Long term (current) use of anticoagulants | CPT/HCPCS: 29581; 99213 ==

== ENCOUNTER → 2024-04-21 11:34 | Outpatient (REF) | payer MEDICARE, BC, SELFPAY | LOC: WOUND 11:34 | PROVIDERS: ATTENDING PHYSICIAN Surgery; FAMILY PHYSICIAN Hospitalist | DX: I87.313 Chronic venous hypertension (idiopathic) with ulcer of bilateral lower extremity (principal); L97.812 Non-pressure chronic ulcer of other part of right lower leg with fat layer exposed; L97.822 Non-pressure chronic ulcer of other part of left lower leg with fat layer exposed; L97.212 Non-pressure chronic ulcer of right calf with fat layer exposed; L97.222 Non-pressure chronic ulcer of left calf with fat layer exposed; L97.322 Non-pressure chronic ulcer of left ankle with fat layer exposed; L97.512 Non-pressure chronic ulcer of other part of right foot with fat layer exposed; I87.2 Venous insufficiency (chronic) (peripheral); R26.2 Difficulty in walking, not elsewhere classified; Z86.73 Personal history of transient ischemic attack (TIA), and cerebral infarction without residual deficits | CPT/HCPCS: 29581; 99213 ==

== ENCOUNTER → 2024-04-28 11:28 | Outpatient (REF) | payer MEDICARE, BC, SELFPAY | LOC: WOUND 11:28 | PROVIDERS: ATTENDING PHYSICIAN Surgery; FAMILY PHYSICIAN Hospitalist | DX: I87.313 Chronic venous hypertension (idiopathic) with ulcer of bilateral lower extremity (principal); L97.812 Non-pressure chronic ulcer of other part of right lower leg with fat layer exposed; L97.822 Non-pressure chronic ulcer of other part of left lower leg with fat layer exposed; L97.212 Non-pressure chronic ulcer of right calf with fat layer exposed; L97.222 Non-pressure chronic ulcer of left calf with fat layer exposed; L97.322 Non-pressure chronic ulcer of left ankle with fat layer exposed; L97.512 Non-pressure chronic ulcer of other part of right foot with fat layer exposed; I87.2 Venous insufficiency (chronic) (peripheral); Z79.01 Long term (current) use of anticoagulants; R26.2 Difficulty in walking, not elsewhere classified; Z86.73 Personal history of transient ischemic attack (TIA), and cerebral infarction without residual deficits | CPT/HCPCS: 99213 ==

== ENCOUNTER → 2024-05-05 10:47 | Outpatient (REF) | payer MEDICARE, BC, SELFPAY | LOC: WOUND 10:47 | PROVIDERS: ATTENDING PHYSICIAN Surgery; FAMILY PHYSICIAN Hospitalist | DX: I87.313 Chronic venous hypertension (idiopathic) with ulcer of bilateral lower extremity (principal); L97.812 Non-pressure chronic ulcer of other part of right lower leg with fat layer exposed; L97.822 Non-pressure chronic ulcer of other part of left lower leg with fat layer exposed; L97.212 Non-pressure chronic ulcer of right calf with fat layer exposed; L97.222 Non-pressure chronic ulcer of left calf with fat layer exposed; L97.322 Non-pressure chronic ulcer of left ankle with fat layer exposed; L97.512 Non-pressure chronic ulcer of other part of right foot with fat layer exposed; I87.2 Venous insufficiency (chronic) (peripheral); Z79.01 Long term (current) use of anticoagulants; R26.2 Difficulty in walking, not elsewhere classified; Z86.73 Personal history of transient ischemic attack (TIA), and cerebral infarction without residual deficits | CPT/HCPCS: 99213 ==

== ENCOUNTER → 2024-05-12 11:20 | Outpatient (REF) | payer MEDICARE, BC, SELFPAY | LOC: WOUND 11:20 | PROVIDERS: ATTENDING PHYSICIAN Surgery; FAMILY PHYSICIAN Hospitalist | DX: I87.313 Chronic venous hypertension (idiopathic) with ulcer of bilateral lower extremity (principal); L97.812 Non-pressure chronic ulcer of other part of right lower leg with fat layer exposed; L97.822 Non-pressure chronic ulcer of other part of left lower leg with fat layer exposed; L97.212 Non-pressure chronic ulcer of right calf with fat layer exposed; L97.222 Non-pressure chronic ulcer of left calf with fat layer exposed; L97.322 Non-pressure chronic ulcer of left ankle with fat layer exposed; L97.512 Non-pressure chronic ulcer of other part of right foot with fat layer exposed; I87.2 Venous insufficiency (chronic) (peripheral); R26.2 Difficulty in walking, not elsewhere classified; Z79.01 Long term (current) use of anticoagulants; Z86.73 Personal history of transient ischemic attack (TIA), and cerebral infarction without residual deficits | CPT/HCPCS: 99213 ==

== ENCOUNTER → 2024-05-19 11:28 | Outpatient (REF) | payer MEDICARE, BC, SELFPAY | LOC: WOUND 11:28 | PROVIDERS: ATTENDING PHYSICIAN Surgery; FAMILY PHYSICIAN Hospitalist | DX: I87.313 Chronic venous hypertension (idiopathic) with ulcer of bilateral lower extremity (principal); L97.812 Non-pressure chronic ulcer of other part of right lower leg with fat layer exposed; L97.822 Non-pressure chronic ulcer of other part of left lower leg with fat layer exposed; L97.212 Non-pressure chronic ulcer of right calf with fat layer exposed; L97.222 Non-pressure chronic ulcer of left calf with fat layer exposed; L97.322 Non-pressure chronic ulcer of left ankle with fat layer exposed; L97.512 Non-pressure chronic ulcer of other part of right foot with fat layer exposed; I87.2 Venous insufficiency (chronic) (peripheral); R26.2 Difficulty in walking, not elsewhere classified; Z79.01 Long term (current) use of anticoagulants; Z86.73 Personal history of transient ischemic attack (TIA), and cerebral infarction without residual deficits | CPT/HCPCS: 99213 ==

== ENCOUNTER → 2024-06-02 11:28 | Outpatient (REF) | payer MEDICARE, BC, SELFPAY | LOC: WOUND 11:28 | PROVIDERS: ATTENDING PHYSICIAN Surgery; FAMILY PHYSICIAN Hospitalist | DX: I87.313 Chronic venous hypertension (idiopathic) with ulcer of bilateral lower extremity (principal); L97.812 Non-pressure chronic ulcer of other part of right lower leg with fat layer exposed; L97.822 Non-pressure chronic ulcer of other part of left lower leg with fat layer exposed; L97.212 Non-pressure chronic ulcer of right calf with fat layer exposed; L97.222 Non-pressure chronic ulcer of left calf with fat layer exposed; L97.322 Non-pressure chronic ulcer of left ankle with fat layer exposed; L97.512 Non-pressure chronic ulcer of other part of right foot with fat layer exposed; I87.2 Venous insufficiency (chronic) (peripheral); R26.2 Difficulty in walking, not elsewhere classified; Z86.73 Personal history of transient ischemic attack (TIA), and cerebral infarction without residual deficits; Z79.01 Long term (current) use of anticoagulants | CPT/HCPCS: 99213 ==

== ENCOUNTER → 2024-06-16 11:08 | Outpatient (REF) | payer MEDICARE, BC, SELFPAY | LOC: WOUND 11:08 | PROVIDERS: ATTENDING PHYSICIAN Surgery; FAMILY PHYSICIAN Hospitalist | DX: I87.313 Chronic venous hypertension (idiopathic) with ulcer of bilateral lower extremity (principal); L97.812 Non-pressure chronic ulcer of other part of right lower leg with fat layer exposed; L97.822 Non-pressure chronic ulcer of other part of left lower leg with fat layer exposed; L97.212 Non-pressure chronic ulcer of right calf with fat layer exposed; L97.222 Non-pressure chronic ulcer of left calf with fat layer exposed; L97.322 Non-pressure chronic ulcer of left ankle with fat layer exposed; L97.512 Non-pressure chronic ulcer of other part of right foot with fat layer exposed; I87.2 Venous insufficiency (chronic) (peripheral); Z79.01 Long term (current) use of anticoagulants; R26.2 Difficulty in walking, not elsewhere classified | CPT/HCPCS: 99212 ==

== ENCOUNTER → 2024-07-24 13:07 | Outpatient (REF) | payer MEDICARE, BC, SELFPAY | LOC: HWRCS 13:07 | PROVIDERS: ATTENDING PHYSICIAN Nurse Practitioner Gerontology; FAMILY PHYSICIAN Psychiatry & Neurology Neurology | DX: R06.02 Shortness of breath (principal); I50.32 Chronic diastolic (congestive) heart failure | CPT/HCPCS: 93306 ==